=== PATIENT | male | born 1985 ===

== ENCOUNTER 2017-03-26 02:26 | Inpatient (IN) | payer MEDICARE, MEDICAID ==
[2017-03-26 02:26] VITALS: BMI 20.9
--- NOTE | 2017-03-26 02:49 | ED PDOC ---
Arrival/HPI - General Chief Complaint: Psychiatric Evaluation Time Seen by Provider: 03/26/17 02:46 Historian: Patient - History of Present Illness Narrative History of Present Illness (Text): 03/26/17 02:49 Stewart Molina is a 31 year old male, whose past medical history includes depression and schizophrenia, who presents to the ED complaining of suicidal ideation. Patient states he has been feeling depressed and expressing suicidal ideation. Patient reports he has been non-compliant with psychiatric medications. Patient denies any homicidal ideation, fever, chills, chest pain, shortness of breath, abdominal pain, nausea, vomiting, diarrhea, urinary symptoms, back pain, neck pain, headache, dizziness, or any other complaints. Symptom Onset: Gradual Symptom Course: Unchanged Activities at Onset: Rest, Light Context: Home Past Medical History - Provider Review Nursing Documentation Reviewed: Yes - Infectious Disease Hx of Infectious Diseases: None - Tetanus Immunization Tetanus Immunization: Unknown - Past Medical History Past Medical History: No Previous - Cardiac Hx Cardiac Disorders: No - Pulmonary Hx Respiratory Disorders: No - Neurological Hx Neurological Disorder: No - HEENT Hx HEENT Disorder: No - Renal Hx Renal Disorder: No - Endocrine/Metabolic Hx Endocrine Disorders: No - Hematological/Oncological Hx Blood Disorders: No - Integumentary Hx Dermatological Disorder: No - Musculoskeletal/Rheumatological Hx Falls: No - Gastrointestinal Hx Gastrointestinal Disorders: No - Genitourinary/Gynecological Hx Genitourinary Disorders: No Hx Reproductive Disorders: No - Psychiatric Hx Anxiety: Yes Hx Schizophrenia: Yes Hx Substance Use: No - Past Surgical History Past Surgical History: No Previous - Anesthesia Hx Anesthesia: No - Suicidal Assessment Feels Threatened In Home Enviroment: Yes Family/Social History - Physician Review Nursing Documentation Reviewed: Yes Family/Social History: Unknown Family HX Smoking Status: Current Some Days Smoker Hx Alcohol Use: No Hx Substance Use: No Substance used: marijuana Hx Substance Use Treatment: No Allergies/Home Meds Allergies/Adverse Reactions: Allergies No Known Allergies Allergy (Verified 02/04/15 10:51) Review of Systems - Physician Review All systems were reviewed & negative as marked: Yes - Review of Systems Constitutional: Normal. absent: Fevers Eyes: Normal ENT: Normal Respiratory: Normal. absent: SOB, Cough Cardiovascular: Normal. absent: Chest Pain Gastrointestinal: Normal. absent: Abdominal Pain, Diarrhea, Nausea, Vomiting Genitourinary Male: Normal. absent: Dysuria, Frequency, Hematuria, Urinary Output Changes Musculoskeletal: Normal. absent: Back Pain, Neck Pain Skin: Normal. absent: Rash Neurological: Normal. absent: Headache, Dizziness Endocrine: Normal Hemo/Lymphatic: Normal Psychiatric: Depression, Suicidal Ideation Physical Exam Vital Signs Reviewed: Yes Vital Signs Temp Pulse Resp BP Pulse Ox 03/26/17 02:32 98.4 F 86 18 117/82 99 Temperature: Afebrile Blood Pressure: Normal Pulse: Regular Respiratory Rate: Normal Appearance: Positive for: Well-Appearing, Non-Toxic, Comfortable Pain Distress: None Mental Status: Positive for: Alert and Oriented X 3 - Systems Exam Head: Present: Atraumatic, Normocephalic Pupils: Present: PERRL Extroacular Muscles: Present: EOMI Conjunctiva: Present: Normal Mouth: Present: Moist Mucous Membranes Neck: Present: Normal Range of Motion Respiratory/Chest: Present: Clear to Auscultation, Good Air Exchange. No: Respiratory Distress, Accessory Muscle Use Cardiovascular: Present: Regular Rate and Rhythm, Normal S1, S2. No: Murmurs Abdomen: Present: Normal Bowel Sounds. No: Tenderness, Distention, Peritoneal Signs Back: Present: Normal Inspection Upper Extremity: Present: Normal Inspection. No: Cyanosis, Edema Lower Extremity: Present: Normal Inspection. No: Edema Neurological: Present: GCS=15, CN II-XII Intact, Speech Normal Skin: Present: Warm, Dry, Normal Color. No: Rashes Psychiatric: Present: Alert, Oriented x 3. No: Normal Affect (Flat affect) Medical Decision Making ED Course and Treatment: 03/26/17 02:49 Impression: 31 year old male c/o depression and suicidal ideation. Differential Diagnosis included but are not limited to: schizophrenia vs. depression Plan: -- EKG -- CXR -- Labs, alcohol level -- Urine drug screen -- Reassess and disposition Progress Notes: Reviewed EKG, NSR at 75 bpm. Incomplete RBBB. Non-specific ST/T wave changes. 03/26/17 03:58 Pt seen and evaluated by SASHA Beltran, who discussed case with Dr. Torres , psychiatrist school lunch monitor. Pt will be admitted to Behavioral Health for schizophrenia and suicidal ideation under Dr. Shelby's service. - Lab Interpretations Lab Results: 03/26/17 03:08 03/26/17 03:08 Lab Results 03/26/17 03:08: Alcohol, Quantitative < 10 03/26/17 03:08: WBC 7.7 D, RBC 4.57, Hgb 13.8 L, Hct 41.2 L, MCV 90.2, MCH 30.2 , MCHC 33.5, RDW 13.3, Plt Count 222, MPV 9.9 03/26/17 03:08: Sodium 139, Potassium 3.6, Chloride 105, Carbon Dioxide 23, Anion Gap 15, BUN 12, Creatinine 0.7, Est GFR ( Amer) > 60, Est GFR (Non- Af Amer) > 60, Random Glucose 96, Calcium 9.0, Total Bilirubin 0.5, AST 25, ALT 32, Alkaline Phosphatase 115, Total Protein 7.1, Albumin 4.4, Globulin 2.7, Albumin/Globulin Ratio 1.6 I have reviewed the lab results: Yes - RAD Interpretation Radiology Orders: 03/26/17 02:54 CHEST PORTABLE [RAD] Stat Insole Channeler: ED Physician - EKG Interpretation Interpreted by ED Physician: Yes Type: 12 lead EKG - Scribe Statement The provider has reviewed the documentation as recorded by the Diana Quijano Provider Scribe Attestation: All medical record entries made by the Diana were at my direction and personally dictated by me. I have reviewed the chart and agree that the record accurately reflects my personal performance of the history, physical exam, medical decision making, and the department course for this patient. I have also personally directed, reviewed, and agree with the discharge instructions and disposition. Disposition/Present on Arrival - Present on Arrival Any Indicators Present on Arrival: No History of DVT/PE: No History of Uncontrolled Diabetes: No Urinary Catheter: No History of Decub. Ulcer: No History Surgical Site Infection Following: None - Disposition Have Diagnosis and Disposition been Completed?: Yes Diagnosis: Schizophrenia, Suicidal ideation Disposition: HOSPITALIZED Disposition Time: 04:00 Patient Plan: Admission Patient Problems: Current Active Problems Problem Status Onset Schizophrenia Acute Suicidal ideation Acute Condition: STABLE
[2017-03-26 03:30] LABS: HEMATOCRIT 41.2 % (42.0-52.0); MEAN CELL VOLUME 90.2 fl (80.0-105.0); MEAN CORPUSCULAR HEMOGLOBIN 30.2 pg (25.0-35.0); MEAN CORPUSCULAR HGB CONC 33.5 g/dl (31.0-37.0); MEAN PLATELET VOLUME 9.9 fl (7.0-11.0); RED CELL DISTRIBUTION WIDTH 13.3 % (11.5-14.5); WHITE BLOOD COUNT 7.7 10^3/ul (4.5-11.0)
[2017-03-26 03:42] LABS: ALB/GLOB RATIO 1.6 (1.1-1.8); ALKALINE PHOSPHATASE 115 U/L (38-133); ALT/SGPT 32 U/L (7-56); AST/SGOT 25 U/L (15-59); BILIRUBIN,TOTAL 0.5 mg/dL (0.2-1.3); BLOOD UREA NITROGEN 12 mg/dL (7-21); CARBON DIOXIDE 23 mmol/L (21-33); CHLORIDE 105 mmol/L (95-110); GFR AFRICAN-AMERICAN > 60; GLUCOSE,RANDOM 96 mg/dL (70-110); POTASSIUM 3.6 mmol/L (3.6-5.0); SODIUM 139 mmol/L (132-148); TOTAL PROTEIN 7.1 g/dL (5.8-8.3)
[2017-03-26] MEDS ORDERED: Magnesium Hydroxide Susp 30 ml UD PO PRN (06:20)
[2017-03-26] MEDS ORDERED: Alum-Mag Hydrox-Simethicone Susp (30 mL) PO PRN (06:20)
--- NOTE | 2017-03-26 06:40 | PCM.BM ---
<Jimmie Carter - Last Filed: 03/26/17 06:36> Treatment Plan Problems - Problems identified on initial assessmt suicidal ideation Date Initiated: 03/26/17 Time Initiated: 05:00 Assessment reference: NA Status: Active Priority: 1 depression Date Initiated: 03/26/17 Time Initiated: 05:00 Assessment reference: NA Status: Active Priority: 3 medication non-compliance Date Initiated: 03/26/17 Time Initiated: 05:00 Assessment reference: NA Priority: 2 Treatment assets and liabiliti Patient Assests: self-reliant, ADL independent Patient Liabilities: live alone, substance abuse - Milieu Protocol Maintain good personal hygiene: daily Encourage regular showers, daily Remind patient to perform daily oral care Conduct patient checks and document Observation sheet: Q15 minutes Maintain personal safety: every shift Educate patient to report safety concerns to staff, every shift Monitor environment for contraband/sharps Medication safety: Monitor for expected outcome, potential side effects: every shift, Assess barriers to learning: every shift, Assess readiness for medication education: every shift Discharge/Continuing Care - Education Needs Education Needs: Patient Medication, Patient Coping Skills, Patient Health Practices/Safety - Discharge Discharge Criteria: Free of Suicidal thoughts, Free of paranoid thoughts <Blanquita Pérez - Last Filed: 03/26/17 12:56> Treatment assets and liabiliti Patient Assests: negotiates basic needs Patient Liabilities: poor support system, auditory impairment - Milieu Protocol Maintain good personal hygiene: daily Encourage regular showers, daily Remind patient to perform daily oral care, daily Assist patient to perform ADL's Maintain personal safety: every shift Educate patient to report safety concerns to staff, every shift Monitor environment for contraband/sharps Medication safety: Monitor for expected outcome, potential side effects: every shift, Assess barriers to learning: every shift, Assess readiness for medication education: every shift <Ivelisse Hector - Last Filed: 03/26/17 14:34> Family Contact Family involvement: Famliy/SO not involved - Goals for Treatment Patient goals for treatment: "To get medical marijuana."
--- NOTE | 2017-03-26 07:43 | RAD ---
HISTORY: medical clearance COMPARISON: Comparison is made to 02/04/2015 FINDINGS: LUNGS: No active pulmonary disease. PLEURA: No significant pleural effusion identified, no pneumothorax apparent. CARDIOVASCULAR: Normal. OSSEOUS STRUCTURES: No significant abnormalities. VISUALIZED UPPER ABDOMEN: Normal. OTHER FINDINGS: None. IMPRESSION: No active disease.
--- NOTE | 2017-03-26 09:35 | CARD ---
APPROVED REPORT EKG Measurement Heart [id number] <Conclusion> Normal sinus rhythm Incomplete right bundle branch block Borderline ECG
--- NOTE | 2017-03-26 14:16 | CP.PCM.HP ---
<VannessaElise - Last Filed: 03/26/17 14:17> History of Present Illness - History of Present Illness History of Present Illness: Internal Medicine Consult for Dr. Alek Hammer CC: Suicidal Ideation HPI: GP is a 31 year old male with a known history of paranoid schizophrenia who was admitted to the psychiatric unit after he attempted to commit suicide yesterday. Patient states that he wanted to cut himself in the neck with a knife, but then decided against it and went to the hospital instead. He states that he has been feeling depressed because his life is "not successful". Patient reports multiple plans for suicide in the past including at 7 years, 13 years, and 17 years old. He reports that he always hears voices, feels that someone is always watching him, and he "senses he can control the environment". He states that he is willing to try medication to help his condition. Denies other medical history and has no other complains at this time. He denies pain at this time. PMHX: Paranoid schizophrenia Psychiatric hx: Diagnosed with schizophrenia at 17 years old. Patient had plans to hang himself at 7 years old and 13 years old. Attempted chemical injection at 17 years old, but unsuccessful. Family history: Mental illnesses on both maternal and paternal sides Meds: Seroquel PRN All: Olanzapine Social hx: - smoking: occasional cigarettes, 1pack/week - EtOH: occasional, absinthe - recreational drugs: marijuana - lives alone in [facility] Present on Admission - Present on Admission Any Indicators Present on Admission: No History of DVT/PE: No History of Uncontrolled Diabetes: No Urinary Catheter: No Decubitus Ulcer Present: No Past Patient History - Infectious Disease Hx of Infectious Diseases: None - Tetanus Immunizations Tetanus Immunization: Unknown - Past Social History Smoking Status: Current Some Days Smoker - CARDIAC Hx Cardiac Disorders: No - PULMONARY Hx Respiratory Disorders: No - NEUROLOGICAL Hx Neurological Disorder: No - HEENT Hx HEENT Problems: No - RENAL Hx Chronic Kidney Disease: No - ENDOCRINE/METABOLIC Hx Endocrine Disorders: No - HEMATOLOGICAL/ONCOLOGICAL Hx Blood Disorders: No - INTEGUMENTARY Hx Dermatological Problems: No - MUSCULOSKELETAL/RHEUMATOLOGICAL Hx Falls: No - GASTROINTESTINAL Hx Gastrointestinal Disorders: No - GENITOURINARY/GYNECOLOGICAL Hx Genitourinary Disorders: No Hx Reproductive Disorders: No - PSYCHIATRIC Hx Depression: Yes Hx Substance Use: Yes - SURGICAL HISTORY Hx Surgeries: No - ANESTHESIA Hx Anesthesia: No Meds Allergies/Adverse Reactions: Allergies Allergy/AdvReac Type Severity Reaction Status Date / Time olanzapine [From Zyprexa] AdvReac RASH Verified 03/26/17 07:48 Physical Exam - Constitutional Appears: Non-toxic Additional comments: PE: General: Patient is AAOx3, answering questions appropriately. Head: Normocephalic, atraumatic Skin: Warm, dry HEENT: Mucous membranes moist. CV: Regular rate & rhythm, normal S1/S2, no murmurs, gallops, rubs Respiratory: Lungs CTA b/l, no wheezes, rales, or rhonchi GI: Abdomen soft, nondistended, nontender. No guarding or rebound. Extremities: Good distal pulses. Neuro: Ambulating with stable gait. Normal strength in all extremities. Psych: Patient has normal affect, sad mood. - Head Exam Head Exam: NORMAL INSPECTION - Eye Exam Eye Exam: EOMI, Normal appearance - ENT Exam ENT Exam: Mucous Membranes Moist - Neck Exam Neck exam: Positive for: Full Rom - Respiratory Exam Respiratory Exam: NORMAL BREATHING PATTERN. absent: Accessory Muscle Use, Respiratory Distress - Cardiovascular Exam Cardiovascular Exam: REGULAR RHYTHM. absent: Bradycardia, Tachycardia - GI/Abdominal Exam GI & Abdominal Exam: Normal Bowel Sounds, Soft. absent: Diminished Bowel Sounds , Tenderness - Extremities Exam Extremities exam: Positive for: full ROM, normal inspection. Negative for: calf tenderness, pedal edema - Neurological Exam Neurological exam: Alert, Normal Gait, Oriented x3 - Skin Skin Exam: Dry, Normal Color, Warm Results - Vital Signs Recent Vital Signs: Last Vital Signs Temp 98.3 F 03/26/17 05:00 Pulse 76 03/26/17 05:00 Resp 16 03/26/17 05:54 BP 126/89 03/26/17 05:00 Pulse Ox 96 03/26/17 05:00 - Labs Result Diagrams: 03/26/17 03:08 03/26/17 03:08 Labs: Laboratory Results - last 24 hr 03/26/17 05:50 Urine Opiates Screen Negative Urine Methadone Screen Negative Ur Barbiturates Screen Negative Ur Phencyclidine Scrn Negative Ur Amphetamines Screen Negative U Benzodiazepines Scrn Negative U Oth Cocaine Metabols Negative U Cannabinoids Screen Positive H Assessment & Plan - Assessment and Plan (Free Text) Assessment: 31 M with Depression. PMH paranoid schizophrenia Plan: 1. Suicidal Ideation, schizophrenia - recommendations per psychiatry 2. Labs normal, vitals stable Medicine team is signing off. no medical intervention necessary at this time - Date & Time Date: 03/26/17 Time: 14:16 <Ward Gaston - Last Filed: 03/26/17 17:35> Results - Vital Signs Recent Vital Signs: Last Vital Signs Temp 98.3 F 03/26/17 05:00 Pulse 76 03/26/17 05:00 Resp 16 03/26/17 05:54 BP 126/89 03/26/17 05:00 Pulse Ox 96 03/26/17 05:00 - Labs Result Diagrams: 03/26/17 03:08 03/26/17 03:08 Labs: Laboratory Results - last 24 hr 03/26/17 05:50 Urine Opiates Screen Negative Urine Methadone Screen Negative Ur Barbiturates Screen Negative Ur Phencyclidine Scrn Negative Ur Amphetamines Screen Negative U Benzodiazepines Scrn Negative U Oth Cocaine Metabols Negative U Cannabinoids Screen Positive H Attending/Attestation - Attestation I have personally seen and examined this patient.: Yes I have fully participated in the care of the patient.: Yes I have reviewed all pertinent clinical information: Yes Notes (Text): 03/26/17 17:31 MEDICAL CONSULTATION 31 year old male with past medical history of paranoid schizophrenia who presented with depressed mood and suicidal ideation. Continue with management as per psychiatrist. Labs were reviewed. Thank you Dr. Valdez for allowing us to participate in the care of this patient. No active medical issues. Will sign off; please re-consult as needed. Ward Gaston MD Hospitalist.
--- NOTE | 2017-03-27 02:18 | HP ---
IDENTIFYING INFORMATION: The patient is a 31-year-old single male admitted with disorganized thinking and suicidal thoughts. HISTORY OF PRESENT ILLNESS: The patient reportedly had grabbed the knife with thoughts of cutting his jugular vein. He asked someone to call the ambulance while he remained outside smoking his cigarette. He also had thoughts at that time of jumping off a bridge, because he wanted something that would "hurt." He, however, was able to talk himself down. The patient reported having a lot of "piled up stuff" including the fact that he was unhappy living in a local [facility] for the past 6 years because he has no other place to go. The patient reports a history of auditory hallucinations not too long ago. The patient reports having difficulty in following sentences that he is engaged in when talking to others. He also reported feeling paranoid. He reported being abandoned by his parents and family. He reported 5 prior psychiatric hospitalizations with he having been diagnosed with schizophrenia at age 14. He was last hospitalized "yesteryear" at [facility] with his longest hospitalization having been for 1 month. He has a long history of noncompliance with medication and other treatments, complaining that the medication makes him feel like a "zombie." He was prescribed up to 800 mg Seroquel at [facility], which may have been his most recent hospitalization. I had discussed the possibility of Clozaril placement with the patient, but he seemed not committed to the rigours of this pharmacologic regimen. The patient reported that he dropped out of psychiatric care this past September, because he felt it was ineffective. Thus, he became noncompliant. The patient reported using marijuana daily "as much as I can." The patient reports that he is on SSD for years because of the psychiatric disorder. He reported that he had previously worked for 5 years at a [employer] station in [place], where he was born and raised. He moved to [facility] at age 22. Both of his parents still reside in [place]. His parents were . He reported that he was taken away from them at age 3 when his mother was arrested because she hung around with the "wrong people." He has 2 half sisters and 2 half brothers. He reported that his mother has had an anxiety disorder that has been treated by mental health workers. He is not in contact with her. The patient indicated that he had completed 12th grade in school, but was in special education for reasons uncertain. The patient reported that previously he was here because he was malnourished. He smokes 1 cigarette per week, but did not feel he needed a patch. He complained of ongoing tension. He appeared to be alert, oriented and gave a history as noted. He is being maintained presently without psychotropic medications, so that we can observe the patient. There was some thought that there may be a malingering element to the patient's behavioral repertoire. A CBC and differential showed low hemoglobin 13.8, hematocrit 41.2. Drug screen was positive for cannabinoids. Biochemical profile was within normal limits. DIAGNOSES: Rule out schizophrenia, rule out bipolar disorder, cannabinoid use disorder, rule out personality disorder. Diaz Valdez MD/ PhD
--- NOTE | 2017-03-27 08:35 | PCM.PYCHPN ---
Psychiatric Progress Note - Psychiatric Progress Note Patient seen today, length of contact: 25 min Patient Chief Complaint: "so-so" Problems Identified/Issues Discussed: I reviewed assessment and recent notes. I met with patient in the dayroom. He is unkempt and appears tired, preoccupied and odd. Reports that his mood is "so- so" and that he hears the cameras on the unit mumbling things to him. He feels unit cameras are targeting him. He still doesn't want to take medications except for medical marijuana. Patient doesn't appear to be responding to internal stimuli. Patient is still depressed however denies SI and HI. Denies any new discomfort or pain. There were no behavioral issues on the unit overnight. Diagnostic Results: Rule out Schizophrenia Rule out Bipolar Disorder Rule out Personality Disorder Cannabis Use Disorder Rule out malingering Medication Change: Yes (Started seroquel and ativan) Medical Record Reviewed: Yes Mental Status Examination - Cognitive Function Attention: Poor Concentration: Poor Association: Loose Fund of Knowledge: Poor - Mood Mood: Depressed ("so-so") - Affect Affect: Other (odd) - Speech Speech: Appropriate - Formal Thought Process Formal Thought Process: Hallucinations ( he hears the cameras on the unit mumbling things to him. He feels unit cameras are targeting him.), Delusions, Paranoia - Homicidal Ideation Homicidal Ideation: No Goal/Treatment Plan - Goal/Treatment Plan Progress Toward Problem(s) and Goals/Treatment Plan: * c/w current tx and plan * Started Seroquel 50 mg [facility] for hallucinations and delusions * Started ativan 0.5 mg [facility] for anxiety * Encourage patient to comply with medication recommendations * No new weekend labs thus far * Vitals reviewed and noted below: Selected Entries 03/26/17 03/26/17 02:32 05:00 Temperature 98.4 F 98.3 F Pulse Rate 86 76 Respiratory 18 16 Rate Blood Pressure 117/82 126/89
[2017-03-27 08:56] LABS: CHOLESTEROL 156 mg/dL (130-200)
--- NOTE | 2017-03-28 08:47 | PCM.PYCHPN ---
Psychiatric Progress Note - Psychiatric Progress Note Patient seen today, length of contact: 25 min Patient Chief Complaint: "okay" Problems Identified/Issues Discussed: I reviewed recent notes. I met with patient in the hernández. He is unkempt and appears tired, preoccupied and odd. Reports that his mood is "okay". He is still paranoid about the cameras on the unit. [place] them mumbling yesterday. When asked about hallucinations today, he responds "yeah and no". Patient has been taking prescribed medications and denies side effects. Denies any new discomfort or pain. He doesn't resist or argue when this provider explains the medications purpose to improve paranoia, hallucinations and anxiety. Informs me that marijuana helps with his anxiety and doesn't feel it contributes to his paranoia. Staff notes indicate that patient appears brighter, observed socializing at times. Still seems paranoid about unit cameras. There were no major behavioral issues over the weekend Diagnostic Results: Rule out Schizophrenia Rule out Bipolar Disorder Rule out Personality Disorder Cannabis Use Disorder Rule out malingering Medication Change: Yes (Started seroquel and ativan on 03/27/17) Medical Record Reviewed: Yes Mental Status Examination - Cognitive Function Orientation: Person, Place Attention: Poor Concentration: Poor Association: Loose Fund of Knowledge: Poor - Mood Mood: Depressed ("okay") - Affect Affect: Other (odd) - Speech Speech: Appropriate - Formal Thought Process Formal Thought Process: Hallucinations ( he hears the cameras on the unit mumbling things to him. He feels unit cameras are targeting him.), Delusions, Paranoia - Suicidal Ideation Suicidal Ideation: No - Homicidal Ideation Homicidal Ideation: No Goal/Treatment Plan - Goal/Treatment Plan Progress Toward Problem(s) and Goals/Treatment Plan: * c/w current tx and plan * Started Seroquel 50 mg [facility] on 03/27/17 for hallucinations and delusions * Started ativan 0.5 mg [facility] on 03/27/17 for anxiety * Vitals reviewed and noted below: Selected Entries 03/26/17 03/26/17 03/27/17 05:00 05:54 16:00 Temperature 98.3 F Pulse Rate 76 81 Respiratory 16 16 Rate Blood Pressure 126/89 105/70 * New weekend labs noted below: Laboratory Results - last 24 hr 03/27/17 03/27/17 07:30 07:30 Triglycerides 113 Cholesterol 156 LDL Cholesterol Direct 85 HDL Cholesterol 48 RPR Nonreactive
--- NOTE | 2017-03-29 17:59 | PCM.PYCHPN ---
Psychiatric Progress Note - Psychiatric Progress Note Patient seen today, length of contact: 25 min Patient Chief Complaint: Has no particular complaint Problems Identified/Issues Discussed: Patient has exhibited bizarre, paranoid behavior. Has history of schizophrenia Medical Problems: Not of immediate concern Diagnostic Results: Non since DSM 5 Symptoms Update: [place] superficial, somewhat disheveled, does not appear to be overtly psychotic nor overtly paranoid .hard however to engage in meaningful insightful conversation Medication Change: Yes (Started seroquel and ativan on 03/27/17) Medical Record Reviewed: Yes Mental Status Examination - Cognitive Function Orientation: Person, Place Memory: Intact Attention: Poor Concentration: Poor Association: Loose Fund of Knowledge: Poor - Mood Mood: Depressed ("okay") - Affect Affect: Other (odd) - Speech Speech: Appropriate - Formal Thought Process Formal Thought Process: Hallucinations ( he hears the cameras on the unit mumbling things to him. He feels unit cameras are targeting him.), Delusions, Paranoia - Suicidal Ideation Suicidal Ideation: No - Homicidal Ideation Homicidal Ideation: No Goal/Treatment Plan - Goal/Treatment Plan Progress Toward Problem(s) and Goals/Treatment Plan: We'll continue to work on stabilization of both affect and thinking abberrency
--- NOTE | 2017-03-30 23:42 | PN ---
SUBJECTIVE: The patient is a 31-year-old male with a history of schizophrenia who has been exhibiting bizarre and paranoid behavior. His mood and affect remain labile. At times, he needs firm limit setting. Verbalized that a camera was focusing on him all the time. The patient has spoken about the virtues of the calming effects of cannabis. The patient's insight and judgement are considered to be impaired. Psychotropically, the patient is being managed on Seroquel 15 mg a.m. and at bedtime. PHYSICAL EXAMINATION VITAL SIGNS: Blood pressure 115/77, pulse 101, temperature 97.7, and respiratory rate 20. LABORATORY DATA: There are no new blood tests to review. Diaz Valdez MD/ PhD
--- NOTE | 2017-03-31 14:22 | PCM.PYCHPN ---
Psychiatric Progress Note - Psychiatric Progress Note Patient seen today, length of contact: 25 min Patient Chief Complaint: Has no particular complaint Problems Identified/Issues Discussed: Patient has exhibited bizarre, paranoid behavior. Has history of schizophrenia Medical Problems: Not of immediate concern Diagnostic Results: Non since DSM 5 Symptoms Update: Patient a somewhat elusive or manipulative historian. 1. He tells me okay that he gives me a low number and rating himself "5 out of 10". The social work he started developing hallucinations when confronted about his need to attend an IOP and about his poor history of poor treatment compliance This underscores the difficulty in assessing the actual severity of the patient' s true psychiatric disorder as opposed to a certainma lingering component to his presentation area Medication Change: Yes (Started seroquel and ativan on 03/27/17) Medical Record Reviewed: Yes Mental Status Examination - Cognitive Function Orientation: Person, Place Memory: Intact Attention: Poor Concentration: Poor Association: Loose Fund of Knowledge: Poor - Mood Mood: Neutral - Affect Affect: Other (odd) - Speech Speech: Appropriate - Formal Thought Process Formal Thought Process: Hallucinations ( he hears the cameras on the unit mumbling things to him. He feels unit cameras are targeting him.), Delusions, Paranoia - Suicidal Ideation Suicidal Ideation: No - Homicidal Ideation Homicidal Ideation: No Goal/Treatment Plan - Goal/Treatment Plan Progress Toward Problem(s) and Goals/Treatment Plan: We'll continue to work on stabilization of both affect and thinking abberrency Patient will be referred to an IOP although he is giving every indication that he will be noncompliant with this follow-up recommendation.
[2017-04-01 07:36] VITALS: BP 130/88; PULSE 85; RESP 18; TEMP 97.3; O2SAT 97
--- NOTE | 2017-04-17 10:20 | DS ---
IDENTIFYING INFORMATION: The patient is a 31-year-old male, admitted in the state of disorganized thinking with suicidal thoughts. HISTORY OF PRESENT ILLNESS: The patient reportedly had grabbed a knife with thoughts of cutting his jugular vein. He then asked somebody to call the ambulance while he remained outside smoking his cigarette. He also expressed thoughts of wanting to jump off a bridge because he wanted something that would "hurt". He reported; however, that he was able to "calm himself down." The patient reported having a lot of "piled up stuff," including the fact that he was unhappy living in a local [facility] [place] for the past six years as he had no other place to live. He reported a history of auditory hallucinations of recent vintage. The patient reported that he had difficulty in following senses while engaging in conversation with other and also reported feeling paranoid. He also reported being abandoned by his parents and family. He reported five prior psychiatric hospitalizations, with he having been diagnosed with schizophrenia at age 14. He was last hospitalized "yesteryear" at [facility] [place], with his longest hospitalization having been of one month duration. He has a long history of treatment noncompliance and medicine noncompliance with he complaining that medication makes him feel like a "zombie". He had been prescribed up to 800 mg Seroquel at [facility] [place],which may have been his most recent hospitalization. The possibility of Clozaril was discussed with the patient, but he could not get admit himself to the rigorous of this pharmacologic regimen. The patient was noted to be unkempt, tired during his hospital stay, odd and eccentric and paranoid, feeling there were cameras on the unit. He also reported hearing mumbling voices. He was, however, considered off to be a vague historian. He was referred to the intensive day treatment program at [facility] [place] (04/08/2017). The patient's mood and affect had improved while on the psychiatric unit. He denied auditory or visual hallucinations or psychotic or homicidal ideation though he did admit to some paranoid feelings. DISCHARGE DIAGNOSES: Psychosis, not otherwise specified; cannabinoid use disorder; personality disorder, not otherwise specified, (the patient had tested positive for cannabinoid). CBC and differential on 03/26/2017 showed low hemoglobin 13.8, hematocrit 41.2. RPR nonreactive. Drug screen is noted positive for cannabinoids, biochemical profile within normal limits. DISCHARGE MEDICATIONS: Ativan 0.5 mg daily, Geodon 40 mg daily, Paxil 20 mg daily. Diaz Valdez MD/ PhD
== END 2017-04-01 15:44 | disposition home or self-care (01) | DRG 885 ==
LOC: ED 02:26 → ERH 04:16 → PSYC 05:24
PROVIDERS: ADMIT Psychiatry & Neurology Psychiatry; ATTEND Psychiatry & Neurology Addiction Medicine
PROC: GZ3ZZZZ Medication Management (ICD-10-PCS; principal; 2017-03-27)
DX: F20.0 Paranoid schizophrenia (principal); Z91.14 Patient's other noncompliance with medication regimen; R45.851 Suicidal ideations; F12.90 Cannabis use, unspecified, uncomplicated

== ENCOUNTER 2017-04-11 13:07 | Inpatient (IN) | payer MEDICARE, MEDICAID ==
[2017-04-11 13:08] VITALS: BMI 20.9
[2017-04-11 13:55] LABS: BASO # 0.02 K/mm3 (0.0-2.0); BASO % 0.2 % (0.0-3.0); EOS % 0.2 % (1.5-5.0); GRAN # 9.91 (1.4-6.5); HEMATOCRIT 45.3 % (42.0-52.0); LYMPH # 1.5 (1.2-3.4); MEAN CELL VOLUME 88.3 fl (80.0-105.0); MEAN CORPUSCULAR HEMOGLOBIN 30.2 pg (25.0-35.0); MEAN CORPUSCULAR HGB CONC 34.2 g/dl (31.0-37.0); MONO # 0.9 (0.1-0.6); MONO % 7.6 % (1.0-6.0); RED CELL DISTRIBUTION WIDTH 13.4 % (11.5-14.5); WHITE BLOOD COUNT 12.4 10^3/ul (4.5-11.0)
[2017-04-11 14:03] LABS: ALB/GLOB RATIO 1.6 (1.1-1.8); ALKALINE PHOSPHATASE 96 U/L (38-126); ALT/SGPT 35 U/L (7-56); AST/SGOT 27 U/L (17-59); BILIRUBIN,TOTAL 0.8 mg/dL (0.2-1.3); BLOOD UREA NITROGEN 5 mg/dL (7-21); CALCIUM 9.2 mg/dL (8.4-10.5); CARBON DIOXIDE 29 mmol/L (21-33); CHLORIDE 101 mmol/L (98-107); GFR AFRICAN-AMERICAN > 60; GLUCOSE,RANDOM 88 mg/dL (70-110); POTASSIUM 3.2 mmol/L (3.6-5.0); SODIUM 144 mmol/L (132-148); TOTAL PROTEIN 8.2 g/dL (5.8-8.3)
--- NOTE | 2017-04-11 14:04 | RAD ---
HISTORY: pes eval COMPARISON: Chest x-ray performed 03/26/17 TECHNIQUE: Chest, one view. FINDINGS: LUNGS: No focal consolidation. Please note that chest x-ray has limited sensitivity for the detection of pulmonary masses. PLEURA: No significant pleural effusion identified. No definite pneumothorax . CARDIOVASCULAR: The cardiomediastinal silhouette appears within normal limits of size. OSSEOUS STRUCTURES: No acute osseous abnormality identified. VISUALIZED UPPER ABDOMEN: Unremarkable. OTHER FINDINGS: None. IMPRESSION: No focal consolidation, significant pleural effusion, or definite pneumothorax identified.
--- NOTE | 2017-04-11 15:31 | ED PDOC ---
Arrival/HPI - General Historian: Patient - History of Present Illness Symptom Onset: Gradual Symptom Course: Worsening - General Chief Complaint: Psychiatric Evaluation Time Seen by Provider: 04/11/17 13:30 - History of Present Illness Narrative History of Present Illness (Text): 04/11/17 15:28 31-year-old male with a history of anxiety depression presents today with suicidal ideation. Patient states he's been feeling very paranoid and hearing voices. He had plans to jump off of the bridge to kill himself. He denies chest pain or shortness of breath. Denies abdominal pain. No nausea or vomiting. Patient states he was recently discharged from the hospital one week ago. (Olga Dunne) Past Medical History - Provider Review Nursing Documentation Reviewed: Yes - Travel History Have you recently traveled outside [place] w/in the past 3 mons?: No - Infectious Disease Hx of Infectious Diseases: None - Tetanus Immunization Tetanus Immunization: Unknown - Past Medical History Past Medical History: No Previous - Cardiac Hx Cardiac Disorders: No - Pulmonary Hx Respiratory Disorders: No - Neurological Hx Neurological Disorder: No - HEENT Hx HEENT Disorder: No - Renal Hx Renal Disorder: No - Endocrine/Metabolic Hx Endocrine Disorders: No - Hematological/Oncological Hx Blood Disorders: No - Integumentary Hx Dermatological Disorder: No - Musculoskeletal/Rheumatological Hx Falls: No - Gastrointestinal Hx Gastrointestinal Disorders: No - Genitourinary/Gynecological Hx Genitourinary Disorders: No Hx Reproductive Disorders: No - Psychiatric Hx Depression: Yes Hx Schizophrenia: Yes Hx Substance Use: Yes - Past Surgical History Past Surgical History: No Previous - Anesthesia Hx Anesthesia: No - Suicidal Assessment Suicide Risk Precautions: Suicide Precautions Family/Social History - Physician Review Nursing Documentation Reviewed: Yes Family/Social History: Unknown Family HX Smoking Status: Current Some Days Smoker Hx Alcohol Use: No Hx Substance Use: Yes Substance used: marijuana Hx Substance Use Treatment: No Allergies/Home Meds Allergies/Adverse Reactions: Allergies olanzapine [From Zyprexa] Adverse Reaction (Verified 04/11/17 13:20) RASH Review of Systems - Review of Systems Constitutional: absent: Fatigue, Fevers Respiratory: absent: SOB, Cough Cardiovascular: absent: Chest Pain, Palpitations Gastrointestinal: absent: Abdominal Pain, Diarrhea, Vomiting Genitourinary Male: absent: Dysuria Musculoskeletal: absent: Arthralgias Skin: absent: Rash Neurological: absent: Headache, Dizziness Psychiatric: Anxiety, Depression, Suicidal Ideation Physical Exam Vital Signs Reviewed: Yes Temperature: Afebrile Blood Pressure: Normal Pulse: Tachycardic Respiratory Rate: Normal Appearance: Positive for: Well-Appearing, Non-Toxic, Comfortable Pain Distress: None Mental Status: Positive for: Alert and Oriented X 3, other (anxious, paranoid) - Systems Exam Head: Present: Atraumatic Mouth: Present: Moist Mucous Membranes Respiratory/Chest: Present: Clear to Auscultation Cardiovascular: Present: Tachycardic Abdomen: Present: Normal Bowel Sounds. No: Tenderness, Distention, Rebound, Guarding Back: Present: Normal Inspection Upper Extremity: Present: Normal ROM Lower Extremity: Present: Normal Inspection, Normal ROM Neurological: Present: GCS=15, Speech Normal Skin: Present: Warm, Dry, Normal Color. No: Rashes Psychiatric: Present: Alert, Oriented x 3, Depressed Mood, Suicidal Ideation, Delusional. No: Normal Affect, Homicidal Ideation Vital Signs Temp Pulse Resp BP Pulse Ox 04/11/17 16:16 98.2 F 88 18 130/96 H 98 04/11/17 13:50 982 F H 103 H 17 150/88 100 04/11/17 13:13 98.6 F 116 H 20 129/82 99 Medical Decision Making ED Course and Treatment: I was available for consultation during PA evaluation. The chart was reviewed by me, and I agree with disposition. The documented history was done by the physician compressor station engineer. The documented physical exam was done by the physician compressor station engineer. The documented procedures were done by the physician compressor station engineer. (Francesco Dixon) 04/11/17 15:31 Patient is nontoxic well-appearing in no distress vital signs are stable. CBC WBC:12.4 CMP WNL CPK: wnl Tylenol WNL Salicylate WNL Alcohol level WNL Urine drug screen : + marijuana UA; wnl cxr: wnl ekg normal sinus rhythm with sinus arrhythmia at 92 bpm normal axis and no ST elevations, incomplete right bundle branch block pt is medically cleared for PES evaluation Patient was seen and evaluated by PES screener: Pascale Patient sign voluntarily to behavioral health floor impression; schizophrenia Admit to the behavioral health floor (Olga Dunne) - Lab Interpretations Lab Results: 04/11/17 13:49 04/11/17 13:49 Lab Results 04/11/17 16:27: Urine Opiates Screen Negative, Urine Methadone Screen Negative, Ur Barbiturates Screen Negative, Ur Phencyclidine Scrn Negative, Ur Amphetamines Screen Negative, U Benzodiazepines Scrn Negative, U Oth Cocaine Metabols Negative, U Cannabinoids Screen Positive H 04/11/17 16:27: Urine Color Yellow, Urine Appearance Clear, Urine pH 7.5, Ur Specific [place] 1.015, Urine Protein Negative, Urine Glucose (UA) Negative, Urine Ketones Negative, Urine Blood Negative, Urine Nitrate Negative, Urine Bilirubin Negative, Urine Urobilinogen 0.2, Ur Leukocyte Esterase Negative 04/11/17 15:35: Total Creatine Kinase 94 04/11/17 13:49: Alcohol, Quantitative < 10 04/11/17 13:49: Salicylates < 1 L, Acetaminophen < 10.0 L 04/11/17 13:49: Sodium 144, Potassium 3.2 L, Chloride 101, Carbon Dioxide 29, Anion Gap 17, BUN 5 L, Creatinine 0.8, Est GFR ( Amer) > 60, Est GFR (Non -Af Amer) > 60, Random Glucose 88, Calcium 9.2, Total Bilirubin 0.8, AST 27, ALT 35, Alkaline Phosphatase 96, Total Protein 8.2, Albumin 5.1 H, Globulin 3.1 , Albumin/Globulin Ratio 1.6 04/11/17 13:49: WBC 12.4 H D, RBC 5.13, Hgb 15.5, Hct 45.3, MCV 88.3, MCH 30.2, MCHC 34.2, RDW 13.4, Plt Count 253, MPV 9.0, Gran % 80.0 H, Lymph % (Auto) 12.0 L, [place] % (Auto) 7.6 H, Eos % (Auto) 0.2 L, Baso % (Auto) 0.2, Gran # 9.91 H, Lymph # 1.5, [place] # 0.9 H, Eos # 0.0, Baso # 0.02 - RAD Interpretation Radiology Orders: 04/11/17 13:31 CHEST PORTABLE [RAD] Stat Disposition/Present on Arrival - Present on Arrival Any Indicators Present on Arrival: No History of DVT/PE: No History of Uncontrolled Diabetes: No Urinary Catheter: No History of Decub. Ulcer: No History Surgical Site Infection Following: None - Disposition Have Diagnosis and Disposition been Completed?: Yes Disposition Time: 17:20 Patient Plan: Admission - Disposition Diagnosis: Suicidal ideation, Schizophrenia Disposition: HOSPITALIZED Condition: FAIR Forms: [employer] (Nepalese)
[2017-04-11 16:33] LABS: PH,URINE 7.5 (4.7-8.0); URINE BILIRUBIN NEGATIVE (NEGATIVE); URINE BLOOD NEGATIVE (NEGATIVE); URINE GLUCOSE (UA) NEGATIVE (NEGATIVE); URINE KETONE NEGATIVE (NEGATIVE); URINE LEUKOCYTE ESTERASE NEGATIVE Leu/uL (NEGATIVE); URINE PROTEIN NEGATIVE mg/dL (<30 mg/dL); URINE UROBILINOGEN 0.2 E.U./dL (<1 E.U./dL)
[2017-04-11 16:35] LABS: URINE APPEARANCE CLEAR (CLEAR); URINE COLOR YELLOW (YELLOW)
[2017-04-11 17:54] VITALS: O2SAT 99
[2017-04-11] MEDS ORDERED: Alum-Mag Hydrox-Simethicone Susp (30 mL) PO PRN (18:20)
[2017-04-11] MEDS ORDERED: Magnesium Hydroxide Susp 30 ml UD PO PRN (18:20)
--- NOTE | 2017-04-11 18:39 | PCM.BM ---
<Santiago Buitrago - Last Filed: 04/11/17 18:36> Treatment Plan Problems - Problems identified on initial assessmt Suicidal Ideation Date Initiated: 04/11/17 Time Initiated: 18:37 Assessment reference: NA Status: Active Priority: 1 Hopelessness Date Initiated: 04/11/17 Time Initiated: 18:37 Assessment reference: NA Status: Active Priority: 2 Delusions Date Initiated: 04/11/17 Time Initiated: 18:38 Assessment reference: NA Status: Active Priority: 3 Comment: paranoid Treatment assets and liabiliti Patient Assests: cooperative, self-reliant, ADL independent, physically healthy , negotiates basic needs, cognitively intact Patient Liabilities: financial problems, poor support system, relationship conflicts, substance abuse - Milieu Protocol Maintain good personal hygiene: daily Encourage regular showers, daily Remind patient to perform daily oral care, daily Assist patient to perform ADL's Maintain personal safety: every shift Educate patient to report safety concerns to staff, every shift Monitor environment for contraband/sharps Medication safety: Monitor for expected outcome, potential side effects: every shift, Assess barriers to learning: every shift, Assess readiness for medication education: every shift Family Contact - Goals for Treatment Patient goals for treatment: "to stop these thoughts" Discharge/Continuing Care - Education Needs Education Needs: Patient Medication, Patient Diagnosis/Disease Process, Patient Coping Skills, Patient Placement options, Patient Community resources, Patient Aftercare Safety Plan - Discharge Discharge Criteria: Tolerates medication w/o severe side effects, Free of Suicidal thoughts, Normal sleep pattern, Reduction of target symptoms <Greer Shelby - Last Filed: 04/12/17 16:39> - Diagnosis (1) Cannabis abuse with physiological dependence Status: Acute Interventions: 04/12/17 16:37 Maintaining sobriety Relapse prevention Possible rehabilitation Motivational interviewing, pt is in denial that he is cannabis abuser 12-step programs: AA meetings (2) Schizoaffective disorder Status: Acute Interventions: 04/12/17 16:38 Psychoeducation/psychotherapy Psychopharmacology/adjustment of medications as needed/ monitoring possible side effects Evaluate pt on daily basis Compliance with medications and follow up appointments Long acting medication if pt is noncompliant with pill form Suicide and homicide risk assessment and prevention, coping strategies, safety plan Relapse prevention Reduction of symptoms Improve functional status Possible social skill training as outpatient (3) Substance-induced psychotic disorder with hallucinations Status: Acute Interventions: 04/12/17 16:38 Maintaining sobriety Relapse prevention
[2017-04-12 06:53] VITALS: RESP 20
--- NOTE | 2017-04-12 07:28 | CARD ---
APPROVED REPORT EKG Measurement Heart [id number] MI [id number] [id number] <Conclusion> Normal sinus rhythm with sinus arrhythmia Incomplete right bundle branch block Borderline ECG
[2017-04-12] MEDS ORDERED: Potassium Chloride 20 mEq ER Tab PO STA (08:27)
--- NOTE | 2017-04-12 12:33 | CP.PCM.CON ---
<Gilmer Hernandez - Last Filed: 04/12/17 15:16> History of Present Illness - History of Present Illness History of Present Illness: This is a 31 yr. old male with a past medical history of anxiety and depression that came in with reports of suicidal ideation. The patient reports that over the past days he has been hearing voices that continue to question his worth and has become paranoid also at the time of his admission. He denies any chest pain, shortness of breath, lightheadedness, dizziness, changes in vision, abdominal pain, constipation, diarrhea, nausea, vomiting, SI, HI, or any other complaints. PMHx: Anxiety, Depression Surgical: Denies Allergies: Olanzapine (Rash) Social: [facility] at the [facility] and does report Marijuana use to decrease his anxiety.Reports smoking 2-3 cigarettes a week and has no desire to quit at this time. Denies any other illicit drug use. PMD: Doesn't currently have one. Review of Systems - Constitutional Constitutional: absent: Anorexia, Chills, Night Sweats - EENT Eyes: absent: Blurred Vision, Discharge, Loss of Vision Ears: absent: Ear Discharge, Ear Pain, Dizziness Nose/Mouth/Throat: absent: Nasal Congestion, Nose Pain - Cardiovascular Cardiovascular: absent: Chest Pain, Chest Pain with Activity, Diaphoresis, Lightheadedness, Palpitations - Respiratory Respiratory: absent: Chest Congestion, Pain with Coughing - Gastrointestinal Gastrointestinal: As Per HPI - Genitourinary Genitourinary: As Per HPI - Musculoskeletal Musculoskeletal: As Per HPI - Neurological Neurological: As Per HPI - Psychiatric Psychiatric: Anxiety, Other (Auditory hallucinations). absent: Panic Attacks, Suicidal Ideation, Visual Hallucinations Past Patient History - Infectious Disease Hx of Infectious Diseases: None - Tetanus Immunizations Tetanus Immunization: Unknown - Past Social History Smoking Status: Current Some Days Smoker - CARDIAC Hx Cardiac Disorders: No - PULMONARY Hx Respiratory Disorders: No - NEUROLOGICAL Hx Neurological Disorder: No - HEENT Hx HEENT Problems: No - RENAL Hx Chronic Kidney Disease: No - ENDOCRINE/METABOLIC Hx Endocrine Disorders: No - HEMATOLOGICAL/ONCOLOGICAL Hx Blood Disorders: No - INTEGUMENTARY Hx Dermatological Problems: No - MUSCULOSKELETAL/RHEUMATOLOGICAL Hx Falls: No - GASTROINTESTINAL Hx Gastrointestinal Disorders: No - GENITOURINARY/GYNECOLOGICAL Hx Genitourinary Disorders: No Hx Reproductive Disorders: No - PSYCHIATRIC Hx Depression: Yes Hx Schizophrenia: Yes Hx Substance Use: Yes - SURGICAL HISTORY Hx Surgeries: No - ANESTHESIA Hx Anesthesia: No Meds Allergies/Adverse Reactions: Allergies Allergy/AdvReac Type Severity Reaction Status Date / Time olanzapine [From Zyprexa] AdvReac RASH Verified 04/11/17 18:53 - Medications Medications: Current Medications Acetaminophen (Tylenol 325mg Tab) 650 mg PO Q4 PRN PRN Reason: Pain, Mild (1-3) Al Hydrox/Mg Hydrox/Simethicone (Maalox Plus 30 Ml) 30 ml PO DAILY PRN PRN Reason: Upset Stomach Lorazepam (Ativan) 0.5 mg PO AMHS LACEY PRN Reason: Protocol Last Admin: 04/12/17 09:04 Dose: 0.5 mg Magnesium Hydroxide (Milk Of Magnesia) 30 ml PO DAILY PRN PRN Reason: Constipation Paroxetine HCl (Paxil) 10 mg PO HS LACEY Zaleplon (Sonata) 5 mg PO HS PRN PRN Reason: Insomnia Ziprasidone (Geodon Cap) 20 mg PO AMHS LACEY PRN Reason: Protocol Physical Exam - Head Exam Head Exam: ATRAUMATIC, NORMAL INSPECTION, NORMOCEPHALIC - Eye Exam Eye Exam: EOMI, Normal appearance, PERRL Pupil Exam: NORMAL ACCOMODATION, PERRL - ENT Exam ENT Exam: Mucous Membranes Moist, Normal Exam - Neck Exam Neck exam: Positive for: Normal Inspection - Respiratory Exam Respiratory Exam: Clear to Auscultation Bilateral, NORMAL BREATHING PATTERN. absent: Respiratory Distress - Cardiovascular Exam Cardiovascular Exam: REGULAR RHYTHM, RRR, +S1, +S2. absent: JVD, Rubs - GI/Abdominal Exam GI & Abdominal Exam: Normal Bowel Sounds. absent: Guarding, Pulsatile Mass, Rebound - Back Exam Back exam: NORMAL INSPECTION. absent: paraspinal tenderness - Neurological Exam Neurological exam: Alert, CN II-XII Intact, Oriented x3 - Psychiatric Exam Psychiatric exam: Anxious Results - Vital Signs Recent Vital Signs: Last Vital Signs Temp 97.8 F 04/12/17 06:52 Pulse 82 04/12/17 06:52 Resp 20 04/12/17 06:52 BP 128/80 04/12/17 06:52 Pulse Ox 99 04/11/17 17:52 - Labs Result Diagrams: 04/11/17 13:49 04/11/17 13:49 Assessment & Plan - Assessment and Plan (Free Text) Assessment: Potassium was slightly decreased this morning. Patient was repleted with KCL. Patient was examined at bedside. Patient reports no complaints at this time. Patient Physical Exam was benign Patient Vitals -97.8F -82HR -128/80 -20RR -100% on RA Smoking Cessation -Discussed with patient his smoking habits and counseled him on the importance of quitting was offered at patch. Patient has no interest in quitting at this time. Marijuana Cessation -Discussed with patient the possible harm his marijuana use could be doing and if he wanted help in stopping. Patient has no interest in quitting at this time. I have examined the patient and reviewed his lab results and imaging. This patient has been cleared medically. Signing off. <Claudio Man - Last Filed: 04/12/17 17:29> Meds - Medications Medications: Current Medications Acetaminophen (Tylenol 325mg Tab) 650 mg PO Q4 PRN PRN Reason: Pain, Mild (1-3) Al Hydrox/Mg Hydrox/Simethicone (Maalox Plus 30 Ml) 30 ml PO DAILY PRN PRN Reason: Upset Stomach Lorazepam (Ativan) 0.5 mg PO AMHS LACEY PRN Reason: Protocol Last Admin: 04/12/17 09:04 Dose: 0.5 mg Magnesium Hydroxide (Milk Of Magnesia) 30 ml PO DAILY PRN PRN Reason: Constipation Paroxetine HCl (Paxil) 10 mg PO HS LACEY Zaleplon (Sonata) 5 mg PO HS PRN PRN Reason: Insomnia Ziprasidone (Geodon Cap) 20 mg PO AMHS LACEY PRN Reason: Protocol Results - Vital Signs Recent Vital Signs: Last Vital Signs Temp 97.8 F 04/12/17 06:52 Pulse 83 04/12/17 16:09 Resp 20 04/12/17 06:52 BP 131/86 04/12/17 16:09 Pulse Ox 99 04/11/17 17:52 - Labs Result Diagrams: 04/11/17 13:49 04/11/17 13:49 Attending/Attestation - Attestation I have personally seen and examined this patient.: Yes I have fully participated in the care of the patient.: Yes I have reviewed all pertinent clinical information: Yes Notes (Text): 04/12/17 17:25 Attending note; Patient seen and examined with resident in the psychiatric floor. Patient is alert, awake and oriented. Complaining of anxiety. Denies other complaints. Patient is a 31 year old male with a past medical history of anxiety and depression that came in with reports of suicidal ideation. History of marijuana abuse. Complete drug abuse cessation is strongly advised. Smoker; refused NicoDerm patch. Complete smoking cessation is strongly advised. Labs reviewed. Hypokalemia; potassium supplemented. Mildly elevated wbc; no sign of infection. Patient is afebrile and nontoxic. Patient is medically stable. Please reconsult as needed. Patient is advised to follow-up with PMD Dr. Rivas. 04/12/17 17:29
--- NOTE | 2017-04-12 15:05 | PCM.PSYCH ---
Initial Psychiatric Evaluation - Initial Psychiatric Evaluation Type of Admission: Voluntary Legal Status: Capacity (pt has capacity to sign consent for treatment) Chief Complaint (in patient's own words): "I was seeing things, some figures, I saw a hair, faces, I hear male and female..., I also had thoughts of harming self, I was holding a knife towards my neck, then I thought that I want to jump off the bridge, I called ambulance.. " Patient's Reaction to Hospitalization: pt was admitted for evaluation of possible suicidal ideation, pt also reported psychotic symptoms, pt deemed to be in danger to self, as per pt, he was holding a knife close to his neck, but decided to call 911 and brought himself to the hospital, pt deemed to be in imminent danger and was offered admission to the psych unit, pt needs high level of care, further evaluation and stabilization, meds adjustment, observation. History of Present Illness and Precipitating Events: Pt is 31yo male long h/o mental illness, h/o hospitalizations (most recent was in this facility less than 2weeks ago), h/o noncompliance with meds, lives at [facility], called 911 because pt had SI with the plan to either cut his throat with a knife or jump off the bridge. Pt pose imminent danger in ED, needs higher level of care, was admitted for further evaluation and stabilization and meds adjustment. pt is poor and unreliable historian, was making contradiction statements, weird appearance, shaved hair off, to compare to the last admission pt had long and curly hair. pt has acceptable hygiene, good ADLs, pt was covering his head with the blanket during the interview. pt said that he was compliant with medications after the discharge in a few minutes pt said he was not taking meds and he was feeling that he is choking, feeling muscle pain, pt also reported that he had agorophobia and was not leaving his room in [facility] for days. Pt said when he is in the hospital he feels "safe", when pt was asked about thoughts of harming self, pt said that the day before yesterday he was thinking to either to jump off the bridge but yesterday pt was "holding a knife towards my neck". Pt said that he called 911 himself. pt also said that he could see "some shapes", when was asked more detailed questions "I could see some hair, faces", pt also said that he was hearing random male in female voices, but denied command type hallucinations. pt said that his expectation from this admission to be "on medical marijuana", this proposal manager writer educated pt that it is unrealistic plans. pt also said he cannot see the difference if he takes meds or not. when was asked why pt brought himself to the hospital, pt said "it is a good question... ", then refused to say anything else. pt said past psych h/o: "I had multiple suicidal attempts", first was at age of 7-8 "I missed my mom, I tried to hang myself on the tree, I saw how engine dispatcher were taking my mother", pt also tried to hang self at age of 13, then at age of 18 pt tried to overdose on drugs, pt has h/o cutting behavior. pt contracted for safety during the interview. family h/o: mother side h/o depression and anxiety, father's side one suicidal attempt one of pt's uncle hanged himself at age of 28. pt denied h/o abuse. pt reported to smoke two-three cigarettes a day, counseling provided, pt does not want to be on nicotine patch. pt said he smokes marijuana daily and this is the only thing which could help him, pt also said that he cannot afford to buy marijuana up until the end of the month because he purchased the phone recently. No side effects from meds, AIMS 0, no EPS. at the same time pt said "I did not want to continue on meds which do not work", offered dorina and volodymyr, risk, benefits and alternatives discussed with thept. as per staff pt is weird, no agitation or aggression. pt's pharmacy is closed today, will confirm meds tomorrow [facility] [place]o: h/o asthma, pt is very thin build, was seen by medical team. 04/11/17 13:49 04/11/17 13:49 Lab Results 04/11/17 16:27: Urine Opiates Screen Negative, Urine Methadone Screen Negative, Ur Barbiturates Screen Negative, Ur Phencyclidine Scrn Negative, Ur Amphetamines Screen Negative, U Benzodiazepines Scrn Negative, U Oth Cocaine Metabols Negative, U Cannabinoids Screen Positive H 04/11/17 16:27: Urine Color Yellow, Urine Appearance Clear, Urine pH 7.5, Ur Specific [place] 1.015, Urine Protein Negative, Urine Glucose (UA) Negative, Urine Ketones Negative, Urine Blood Negative, Urine Nitrate Negative, Urine Bilirubin Negative, Urine Urobilinogen 0.2, Ur Leukocyte Esterase Negative 04/11/17 15:35: Total Creatine Kinase 94 04/11/17 13:49: Alcohol, Quantitative < 10 04/11/17 13:49: Salicylates < 1 L, Acetaminophen < 10.0 L 04/11/17 13:49: Sodium 144, Potassium 3.2 L, Chloride 101, Carbon Dioxide 29, Anion Gap 17, BUN 5 L, Creatinine 0.8, Est GFR ( Amer) > 60, Est GFR (Non -Af Amer) > 60, Random Glucose 88, Calcium 9.2, Total Bilirubin 0.8, AST 27, ALT 35, Alkaline Phosphatase 96, Total Protein 8.2, Albumin 5.1 H, Globulin 3.1 , Albumin/Globulin Ratio 1.6 04/11/17 13:49: WBC 12.4 H D, RBC 5.13, Hgb 15.5, Hct 45.3, MCV 88.3, MCH 30.2, MCHC 34.2, RDW 13.4, Plt Count 253, MPV 9.0, Gran % 80.0 H, Lymph % (Auto) 12.0 L, [place] % (Auto) 7.6 H, Eos % (Auto) 0.2 L, Baso % (Auto) 0.2, Gran # 9.91 H, Lymph # 1.5, [place] # 0.9 H, Eos # 0.0, Baso # 0.02 Vital Signs Temp Pulse Resp BP Pulse Ox 04/12/17 06:52 97.8 F 82 20 128/80 04/11/17 18:32 16 04/11/17 17:52 16 99 04/11/17 16:16 98.2 F 88 18 130/96 H 98 04/11/17 13:50 982 F H 103 H 17 150/88 100 04/11/17 13:13 98.6 F 116 H 20 129/82 99 Current Medications: Active Medications Generic Name Dose Route Start Last Admin Trade Name Freq PRN Reason Stop Dose Admin Acetaminophen 650 mg 04/11/17 18:20 Tylenol 325mg Tab PO Q4 PRN Pain, Mild (1-3) Al Hydrox/Mg Hydrox/Simethicone 30 ml 04/11/17 18:20 Maalox Plus 30 Ml PO DAILY PRN Upset Stomach Lorazepam 0.5 mg 04/11/17 22:00 04/11/17 21:06 Ativan PO 0.5 mg AMHS LACEY Administration Protocol Magnesium Hydroxide 30 ml 04/11/17 18:20 Milk Of Magnesia PO DAILY PRN Constipation Quetiapine Fumarate 50 mg 04/11/17 22:00 04/11/17 21:07 Seroquel PO 50 mg AMHS LACEY Administration Protocol Zaleplon 5 mg 04/11/17 19:09 Sonata PO HS PRN Insomnia Past Psychiatric History - Past Psychiatric History Previous Treatment History: Inpatient Prior Professional Help: see HPI Prior Psychiatric Treatment: see HPI At what hospital: see HPI Duration: see HPI Nature of Treatment: see HPI Explanation of prior treatment: see HPI History of Abuse: see HPI History of ETOH/Drug Use: see HPI History of Family Illness: see HPI Pertinent Medical Hx (Current Medical&Sleep Prob, Allergies): Allergies Allergy/AdvReac Type Severity Reaction Status Date / Time olanzapine [From Zyprexa] AdvReac RASH Verified 04/11/17 18:53 Lorazepam [Ativan] 0.5 mg PO AMHS #14 tab 04/01/17 QUEtiapine [Seroquel] 50 mg PO AMHS #28 tab 04/01/17 Review of Systems - Review of Systems Systems not reviewed;Unavailable: Acuity of Condition - EENT Eyes: As Per HPI Ears: As Per HPI Nose/Mouth/Throat: As Per HPI - Cardiovascular Cardiovascular: As Per HPI - Respiratory Respiratory: As Per HPI - Gastrointestinal Gastrointestinal: As Per HPI - Genitourinary Genitourinary: As Per HPI - Reproductive: Male Reproductive:Male: As Per HPI - Musculoskeletal Musculoskeletal: As Par HPI - Integumentary Integumentary: As Per HPI - Neurological Neurological: As Per HPI - Psychiatric Psychiatric: As Per HPI - Endocrine Endocrine: As Per HPI - Hematologic/Lymphatic Hematologic: As Per HPI Mental Status Examination - Personal Presentation Personal Presentation: Looks stated age - Affect Affect: Flat - Motor Activity Motor Activity: Calm - Reliability in Providing Information Reliability in Providing Information: Poor, due to alteration in thoughts, Poor , due to cognitve impairment - Speech Speech: Disorganized - Mood Mood: Depressed, Anxious - Formal Thought Process Formal Thought Process: Hallucinations, Delusions, Paranoia, Loosening of associations, Circumstantial - Hallucinations/Delusions Delusions: Persecution - Obsessions/Compulsions Obsessions: None Compulsions: None - Cognitive Functions Orientation: Person, Place Sensorium: Alert Attention/Concentration: Easily distracted Abstract Thinking: [place] Estimate of Intelligence: Below average Judgement: Intact, as evidence by: Insight regarding need for hospitalization - Risk Risk: Self-mutilation, Diminished functioning - Strength & Assets Inventory Strength & Assets Inventory: Skills, Cooperative - Limitations Limitations: Other (chonic substance abuse) DSM 5 DX - DSM 5 DSM 5 Diagnosis: schizoaffective d/o anxiety nos cannabis abuse and dependence r/o substance induced psychosis r/o panic disorder with agoraphobia - Recommended/Plan of Treatment Treatment Recommendations and Plan of Treatment: milieu/structure/supportive therapy Lorazepam [Ativan] 0.5 mg PO AMHS will continue QUEtiapine [Seroquel] 50 mg PO AMHS will be d/c will start geodon 20mg po amhs for psychosis will start paxil 10mg po hs for depression and anxiety medical consult appreciated SW evaluation will monitor closely Projected ELOS: 7days Prognosis: guarded Discharge Plan and Discharge Criteria: Pt will be not depressed or manic, will be more hopeful, will be not psychotic or anxious, will be not having thoughts of harming self or others, will be tolerating medications well, will not have major side effects, will be able to function, will not pose threat to self or others. - Smoking Cessation Smoking Cessation Initiated: Yes
--- NOTE | 2017-04-13 11:30 | PCM.PYCHPN ---
Psychiatric Progress Note - Psychiatric Progress Note Patient seen today, length of contact: 30 minutes Patient Chief Complaint: "I did not sleep that well, I was circling around for 2 hours..." Problems Identified/Issues Discussed: Suicide/ homicide prevention, past psychiatric h/o, current psychiatric symptoms , medical problems, risk/benefits and alternatives of medications, medications compliance, coping strategies, substance abuse h/o, relapse prevention, importance of follow up with psychiatrist and therapist, discharge plan. Medical Problems: h/o asthma, was seen by medical team. Diagnostic Results: 04/11/17 13:49 04/11/17 13:49 Lab Results 04/11/17 16:27: Urine Opiates Screen Negative, Urine Methadone Screen Negative, Ur Barbiturates Screen Negative, Ur Phencyclidine Scrn Negative, Ur Amphetamines Screen Negative, U Benzodiazepines Scrn Negative, U Oth Cocaine Metabols Negative, U Cannabinoids Screen Positive H 04/11/17 16:27: Urine Color Yellow, Urine Appearance Clear, Urine pH 7.5, Ur Specific [place] 1.015, Urine Protein Negative, Urine Glucose (UA) Negative, Urine Ketones Negative, Urine Blood Negative, Urine Nitrate Negative, Urine Bilirubin Negative, Urine Urobilinogen 0.2, Ur Leukocyte Esterase Negative 04/11/17 15:35: Total Creatine Kinase 94 04/11/17 13:49: Alcohol, Quantitative < 10 04/11/17 13:49: Salicylates < 1 L, Acetaminophen < 10.0 L 04/11/17 13:49: Sodium 144, Potassium 3.2 L, Chloride 101, Carbon Dioxide 29, Anion Gap 17, BUN 5 L, Creatinine 0.8, Est GFR ( Amer) > 60, Est GFR (Non -Af Amer) > 60, Random Glucose 88, Calcium 9.2, Total Bilirubin 0.8, AST 27, ALT 35, Alkaline Phosphatase 96, Total Protein 8.2, Albumin 5.1 H, Globulin 3.1 , Albumin/Globulin Ratio 1.6 04/11/17 13:49: WBC 12.4 H D, RBC 5.13, Hgb 15.5, Hct 45.3, MCV 88.3, MCH 30.2, MCHC 34.2, RDW 13.4, Plt Count 253, MPV 9.0, Gran % 80.0 H, Lymph % (Auto) 12.0 L, [place] % (Auto) 7.6 H, Eos % (Auto) 0.2 L, Baso % (Auto) 0.2, Gran # 9.91 H, Lymph # 1.5, [place] # 0.9 H, Eos # 0.0, Baso # 0.02 Vital Signs Temp Pulse Resp BP Pulse Ox 04/13/17 07:14 98.5 F 88 20 111/73 04/13/17 07:11 98.5 F 88 20 04/12/17 16:09 83 131/86 04/12/17 06:52 97.8 F 82 20 128/80 04/11/17 18:32 16 04/11/17 17:52 16 99 04/11/17 16:16 98.2 F 88 18 130/96 H 98 04/11/17 13:50 982 F H 103 H 17 150/88 100 04/11/17 13:13 98.6 F 116 H 20 129/82 99 DSM 5 Symptoms Update: Pt is 31yo male long h/o mental illness, h/o hospitalizations (most recent was in this facility less than 2weeks ago), h/o noncompliance with meds, lives at [facility], called 911 because pt had SI with the plan to either cut his throat with a knife or jump off the bridge. Pt pose imminent danger in ED, needs higher level of care, was admitted for further evaluation and stabilization and meds adjustment. pt is poor and unreliable historian, was making conflicting statements, weird appearance, good ADLs, pt was covering his head with the blanket during the interview. pt observed talking to other pt, R,R, seems well related to her, when this write approached pt, affect became flat, pt tried to present more depressed and withdrawn than a few minutes before when pt was smiling and had a good time. pt said he did not sleep that well, "medication does not work", pt was educated that meds will start working in a few days. pt also said he has feeling that somebody is looking at him "I feel uncomfortable",pt was not able to identify is it paranoid ideation or anxiety. pt is compliant with medications, no side effects observed or reported, AIMS 0, no EPS. pt's tx goals: "to be less anxious". as per staff pt "enjoys staying in the hospital", pt does not have any psychotic /disorganized/aggressive behavior. Impression: as per h/o schizophrenia r/o schizoaffective disorder cannabis abuse/dependence Medication Change: Yes (paxil increased) Medical Record Reviewed: Yes Consults ordered or reviewed: medical consult appreciated Mental Status Examination - Cognitive Function Orientation: Person, Place Memory: Intact Attention: Poor Concentration: Poor Association: WNL Fund of Knowledge: WNL - Mood Mood: Depressed (some improvement), Anxious (some improvement) - Affect Affect: Flat - Formal Thought Process Formal Thought Process: Hallucinations, Delusions, Paranoia, Loosening of associations, Circumstantial - Suicidal Ideation Suicidal Ideation: No - Homicidal Ideation Homicidal Ideation: No Goal/Treatment Plan - Goal/Treatment Plan Need for Continued Stay: Remain at risks for inpatient hospitalization, Severe depression anxiety, Discharge may exacerbated symptoms, Severe functional impairment Progress Toward Problem(s) and Goals/Treatment Plan: milieu/structure/supportive therapy Lorazepam [Ativan] 0.5 mg PO AMHS will continue geodon 20mg po amhs for psychosis paxil 20mg po hs for depression and anxiety medical consult appreciated SW evaluation will monitor closely Estimated Date of D/C: 04/16/17 (we'll monitor closely)
--- NOTE | 2017-04-14 16:02 | PCM.PYCHPN ---
Psychiatric Progress Note - Psychiatric Progress Note Patient seen today, length of contact: 30 minutes Patient Chief Complaint: "I feel better" Problems Identified/Issues Discussed: Suicide/ homicide prevention, past psychiatric h/o, current psychiatric symptoms , medical problems, risk/benefits and alternatives of medications, medications compliance, coping strategies, substance abuse h/o, relapse prevention, importance of follow up with psychiatrist and therapist, discharge plan. Medical Problems: h/o asthma, was seen by medical team. Diagnostic Results: 04/11/17 13:49 04/11/17 13:49 Lab Results 04/11/17 16:27: Urine Opiates Screen Negative, Urine Methadone Screen Negative, Ur Barbiturates Screen Negative, Ur Phencyclidine Scrn Negative, Ur Amphetamines Screen Negative, U Benzodiazepines Scrn Negative, U Oth Cocaine Metabols Negative, U Cannabinoids Screen Positive H 04/11/17 16:27: Urine Color Yellow, Urine Appearance Clear, Urine pH 7.5, Ur Specific [place] 1.015, Urine Protein Negative, Urine Glucose (UA) Negative, Urine Ketones Negative, Urine Blood Negative, Urine Nitrate Negative, Urine Bilirubin Negative, Urine Urobilinogen 0.2, Ur Leukocyte Esterase Negative 04/11/17 15:35: Total Creatine Kinase 94 04/11/17 13:49: Alcohol, Quantitative < 10 04/11/17 13:49: Salicylates < 1 L, Acetaminophen < 10.0 L 04/11/17 13:49: Sodium 144, Potassium 3.2 L, Chloride 101, Carbon Dioxide 29, Anion Gap 17, BUN 5 L, Creatinine 0.8, Est GFR ( Amer) > 60, Est GFR (Non -Af Amer) > 60, Random Glucose 88, Calcium 9.2, Total Bilirubin 0.8, AST 27, ALT 35, Alkaline Phosphatase 96, Total Protein 8.2, Albumin 5.1 H, Globulin 3.1 , Albumin/Globulin Ratio 1.6 04/11/17 13:49: WBC 12.4 H D, RBC 5.13, Hgb 15.5, Hct 45.3, MCV 88.3, MCH 30.2, MCHC 34.2, RDW 13.4, Plt Count 253, MPV 9.0, Gran % 80.0 H, Lymph % (Auto) 12.0 L, [place] % (Auto) 7.6 H, Eos % (Auto) 0.2 L, Baso % (Auto) 0.2, Gran # 9.91 H, Lymph # 1.5, [place] # 0.9 H, Eos # 0.0, Baso # 0.02 Vital Signs Temp Pulse Resp BP Pulse Ox 04/13/17 07:14 98.5 F 88 20 111/73 04/13/17 07:11 98.5 F 88 20 04/12/17 16:09 83 131/86 04/12/17 06:52 97.8 F 82 20 128/80 04/11/17 18:32 16 04/11/17 17:52 16 99 04/11/17 16:16 98.2 F 88 18 130/96 H 98 04/11/17 13:50 982 F H 103 H 17 150/88 100 04/11/17 13:13 98.6 F 116 H 20 129/82 99 DSM 5 Symptoms Update: Pt is 31yo male long h/o mental illness, h/o hospitalizations (most recent was in this facility less than 2weeks ago), h/o noncompliance with meds, lives at [facility], called 911 because pt had SI with the plan to either cut his throat with a knife or jump off the bridge. Pt pose imminent danger in ED, needs higher level of care, was admitted for further evaluation and stabilization and meds adjustment. pt is poor and unreliable historian, was making conflicting statements, weird appearance, good ADLs, pt was covering his head with the blanket during the interview. pt observed talking to other pts well related, but when this write approached pt , affect became flat, pt tried to present more depressed and withdrawn than a few minutes before when pt was smiling and had a good time. pt said he feels better today, pt said that hallucinations are improving, will increase geodon. slept better. pt is compliant with medications, no side effects observed or reported, AIMS 0, no EPS. pt's tx goals: "to be less anxious". as per staff pt "enjoys staying in the hospital", pt does not have any psychotic /disorganized/aggressive behavior. Impression: as per h/o schizophrenia r/o schizoaffective disorder cannabis abuse/dependence Medication Change: Yes (geodon increased) Medical Record Reviewed: Yes Consults ordered or reviewed: medical consult appreciated Mental Status Examination - Cognitive Function Orientation: Person, Place Memory: Intact Attention: Poor Concentration: Poor Association: WNL Fund of Knowledge: WNL - Mood Mood: Depressed (some improvement), Anxious (some improvement) - Affect Affect: Flat - Formal Thought Process Formal Thought Process: Hallucinations, Delusions, Paranoia, Loosening of associations, Circumstantial - Suicidal Ideation Suicidal Ideation: No - Homicidal Ideation Homicidal Ideation: No Goal/Treatment Plan - Goal/Treatment Plan Need for Continued Stay: Remain at risks for inpatient hospitalization, Severe depression anxiety, Discharge may exacerbated symptoms, Severe functional impairment Progress Toward Problem(s) and Goals/Treatment Plan: milieu/structure/supportive therapy Lorazepam [Ativan] 0.5 mg PO AMHS will continue geodon 40mg po amhs for psychosis paxil 20mg po hs for depression and anxiety medical consult appreciated SW evaluation will monitor closely Estimated Date of D/C: 04/16/17 (we'll monitor closely)
--- NOTE | 2017-04-15 17:48 | PCM.PYCHPN ---
Psychiatric Progress Note - Psychiatric Progress Note Patient seen today, length of contact: 30 minutes Patient Chief Complaint: "I feel better" Problems Identified/Issues Discussed: Suicide/ homicide prevention, past psychiatric h/o, current psychiatric symptoms , medical problems, risk/benefits and alternatives of medications, medications compliance, coping strategies, substance abuse h/o, relapse prevention, importance of follow up with psychiatrist and therapist, discharge plan. Medical Problems: h/o asthma, was seen by medical team. Diagnostic Results: 04/11/17 13:49 04/11/17 13:49 Lab Results 04/11/17 16:27: Urine Opiates Screen Negative, Urine Methadone Screen Negative, Ur Barbiturates Screen Negative, Ur Phencyclidine Scrn Negative, Ur Amphetamines Screen Negative, U Benzodiazepines Scrn Negative, U Oth Cocaine Metabols Negative, U Cannabinoids Screen Positive H 04/11/17 16:27: Urine Color Yellow, Urine Appearance Clear, Urine pH 7.5, Ur Specific [place] 1.015, Urine Protein Negative, Urine Glucose (UA) Negative, Urine Ketones Negative, Urine Blood Negative, Urine Nitrate Negative, Urine Bilirubin Negative, Urine Urobilinogen 0.2, Ur Leukocyte Esterase Negative 04/11/17 15:35: Total Creatine Kinase 94 04/11/17 13:49: Alcohol, Quantitative < 10 04/11/17 13:49: Salicylates < 1 L, Acetaminophen < 10.0 L 04/11/17 13:49: Sodium 144, Potassium 3.2 L, Chloride 101, Carbon Dioxide 29, Anion Gap 17, BUN 5 L, Creatinine 0.8, Est GFR ( Amer) > 60, Est GFR (Non -Af Amer) > 60, Random Glucose 88, Calcium 9.2, Total Bilirubin 0.8, AST 27, ALT 35, Alkaline Phosphatase 96, Total Protein 8.2, Albumin 5.1 H, Globulin 3.1 , Albumin/Globulin Ratio 1.6 04/11/17 13:49: WBC 12.4 H D, RBC 5.13, Hgb 15.5, Hct 45.3, MCV 88.3, MCH 30.2, MCHC 34.2, RDW 13.4, Plt Count 253, MPV 9.0, Gran % 80.0 H, Lymph % (Auto) 12.0 L, [place] % (Auto) 7.6 H, Eos % (Auto) 0.2 L, Baso % (Auto) 0.2, Gran # 9.91 H, Lymph # 1.5, [place] # 0.9 H, Eos # 0.0, Baso # 0.02 Vital Signs Temp Pulse Resp BP Pulse Ox 04/13/17 07:14 98.5 F 88 20 111/73 04/13/17 07:11 98.5 F 88 20 04/12/17 16:09 83 131/86 04/12/17 06:52 97.8 F 82 20 128/80 04/11/17 18:32 16 04/11/17 17:52 16 99 04/11/17 16:16 98.2 F 88 18 130/96 H 98 04/11/17 13:50 982 F H 103 H 17 150/88 100 04/11/17 13:13 98.6 F 116 H 20 129/82 99 DSM 5 Symptoms Update: Pt is 31yo male long h/o mental illness, h/o hospitalizations (most recent was in this facility less than 2weeks ago), h/o noncompliance with meds, lives [facility], called 911 because pt had SI with the plan to either cut his throat with a knife or jump off the bridge. Pt pose imminent danger in ED, needs higher level of care, was admitted for further evaluation and stabilization and meds adjustment. Patient with much improvement,psychosis is better, depression is better, anxiety is better. pt observed talking to other pts well related, but when this write approached pt , affect became flat, pt tried to present more depressed and withdrawn than a few minutes before when pt was smiling and had a good time. pt said he feels better today, pt said that hallucinations are improving, will increase geodon. slept better. pt is compliant with medications, no side effects observed or reported, AIMS 0, no EPS. as per staff pt "enjoys staying in the hospital", pt does not have any psychotic /disorganized/aggressive behavior. possible discharge tomorrow Impression: as per h/o schizophrenia r/o schizoaffective disorder cannabis abuse/dependence Medication Change: Yes (geodon increased) Medical Record Reviewed: Yes Consults ordered or reviewed: medical consult appreciated Mental Status Examination - Cognitive Function Orientation: Person, Place Memory: Intact Attention: Poor (much better) Concentration: Poor (much better) Association: WNL Fund of Knowledge: WNL - Mood Mood: Depressed (I'm not depressed), Anxious (I feel little better but I'm concerned about outside) - Affect Affect: Constricted (bbut reactive) - Speech Speech: Appropriate - Formal Thought Process Formal Thought Process: Hallucinations (denied), Delusions (denied), Paranoia ( better), Circumstantial (chronic) - Suicidal Ideation Suicidal Ideation: No - Homicidal Ideation Homicidal Ideation: No Goal/Treatment Plan - Goal/Treatment Plan Need for Continued Stay: Remain at risks for inpatient hospitalization, Severe depression anxiety, Discharge may exacerbated symptoms, Severe functional impairment Progress Toward Problem(s) and Goals/Treatment Plan: milieu/structure/supportive therapy Lorazepam [Ativan] 0.5 mg PO AMHS will continue geodon 40mg po amhs for psychosis paxil 20mg po hs for depression and anxiety medical consult appreciated SW evaluation will monitor closely Estimated Date of D/C: 04/16/17 (we'll monitor closely)
[2017-04-16 07:21] VITALS: BP 122/81; PULSE 89; TEMP 98.2
--- NOTE | 2017-04-16 15:39 | PCM.PYCHDC ---
Mental Status Examination - Mental Status Examination Orientation: Person, Place, Situation, Time Memory: Intact Mood: Neutral Affect: Broad (and mood congruent) Speech: Appropriate Attention: WNL Concentration: WNL Association: WNL Fund of Knowledge: WNL Formal Thought Process: Other (some circumstantiality and tangentiality in thought process) Description of patient's judgement and insight: Pt has improved insight into mental and medical illness, pt was compliant with medications and unit rules and regulations, pt was going to groups, was calm, cooperative, socially appropriate, no behavioral incidents, no agitation, no aggression. Psychotic Thoughts and Behaviors: Pt denied v/a/t hallucinations, denied paranoid ideations, pt does not appear to be psychotic, and thought process is goal directed. Suicidal Ideation: No Current Homicidal Ideation?: No Plan: pt adamantly denied thoughts of harming self or others denied intent or plan. Discharge Summary - Discharge Note Reason for Hospitalization: pt was admitted for evaluation of possible suicidal ideation, pt also reported psychotic symptoms, pt deemed to be in danger to self, as per pt, he was holding a knife close to his neck, but decided to call 911 and brought himself to the hospital, pt deemed to be in imminent danger and was offered admission to the psych unit, pt needs high level of care, further evaluation and stabilization, meds adjustment, observation. Psychiatric History (includes Medical, Family, Personal Hx): see HPI Laboratory Data: 04/11/17 13:49 04/11/17 13:49 Lab Results 04/11/17 16:27: Urine Opiates Screen Negative, Urine Methadone Screen Negative, Ur Barbiturates Screen Negative, Ur Phencyclidine Scrn Negative, Ur Amphetamines Screen Negative, U Benzodiazepines Scrn Negative, U Oth Cocaine Metabols Negative, U Cannabinoids Screen Positive H 04/11/17 16:27: Urine Color Yellow, Urine Appearance Clear, Urine pH 7.5, Ur Specific [place] 1.015, Urine Protein Negative, Urine Glucose (UA) Negative, Urine Ketones Negative, Urine Blood Negative, Urine Nitrate Negative, Urine Bilirubin Negative, Urine Urobilinogen 0.2, Ur Leukocyte Esterase Negative 04/11/17 15:35: Total Creatine Kinase 94 04/11/17 13:49: Alcohol, Quantitative < 10 04/11/17 13:49: Salicylates < 1 L, Acetaminophen < 10.0 L 04/11/17 13:49: Sodium 144, Potassium 3.2 L, Chloride 101, Carbon Dioxide 29, Anion Gap 17, BUN 5 L, Creatinine 0.8, Est GFR ( Amer) > 60, Est GFR (Non -Af Amer) > 60, Random Glucose 88, Calcium 9.2, Total Bilirubin 0.8, AST 27, ALT 35, Alkaline Phosphatase 96, Total Protein 8.2, Albumin 5.1 H, Globulin 3.1 , Albumin/Globulin Ratio 1.6 04/11/17 13:49: WBC 12.4 H D, RBC 5.13, Hgb 15.5, Hct 45.3, MCV 88.3, MCH 30.2, MCHC 34.2, RDW 13.4, Plt Count 253, MPV 9.0, Gran % 80.0 H, Lymph % (Auto) 12.0 L, [place] % (Auto) 7.6 H, Eos % (Auto) 0.2 L, Baso % (Auto) 0.2, Gran # 9.91 H, Lymph # 1.5, [place] # 0.9 H, Eos # 0.0, Baso # 0.02 Vital Signs Temp Pulse Resp BP Pulse Ox 04/16/17 07:20 98.2 F 89 20 122/81 04/15/17 16:00 96 H 114/64 04/15/17 07:23 0.4 F L 71 20 113/73 04/14/17 07:27 98.5 F 72 20 109/71 04/13/17 07:14 98.5 F 88 20 111/73 04/13/17 07:11 98.5 F 88 20 04/13/17 04:00 73 114/76 04/12/17 16:09 83 131/86 04/12/17 06:52 97.8 F 82 20 128/80 04/11/17 18:32 16 04/11/17 17:52 16 99 04/11/17 16:16 98.2 F 88 18 130/96 H 98 04/11/17 13:50 982 F H 103 H 17 150/88 100 04/11/17 13:13 98.6 F 116 H 20 129/82 99 Consultations:: List each consultation separately and include: 1. Reason for request. 2. Findings. 3. Follow-up Consultations: medical consult appreciated see notes for more detailed information Summary of Hospital Course include:: 1. Description of specific treatment plan utilized for patients during their course of treatmen. 2. Summarize the time- course for resolution of acute symptoms and/or regressed behaviors. 3. Describe issues identified and worked on during hospitalization. 4. Describe medication utilized. 5. Describe medical problems identified and treated. 6. Reassessment of suicide risk Summary of Hospital Course: Pt is 31yo male long h/o mental illness, h/o hospitalizations (most recent was in this facility less than 2weeks ago), h/o noncompliance with meds, lives at [facility], called 911 because pt had SI with the plan to either cut his throat with a knife or jump off the bridge. Pt pose imminent danger in ED, needs higher level of care, was admitted for further evaluation and stabilization and meds adjustment. at the time of admission patient presented to be a poor and unreliable historian , was making contradiction statements, weird appearance, shaved hair off, to compare to the last admission pt had long and curly hair. pt has acceptable hygiene, good ADLs, pt was covering his head with the blanket during the interview. pt said that he was compliant with medications after the discharge in a few minutes pt said he was not taking meds and he was feeling that he is choking, feeling muscle pain, pt also reported that he had agorophobia and was not leaving his room in [facility] for days. Pt said when he is in the hospital he feels "safe", when pt was asked about thoughts of harming self, pt said that the day before yesterday he was thinking to either to jump off the bridge but yesterday pt was "holding a knife towards my neck". Pt said that he called 911 himself. pt also said that he could see "some shapes", when was asked more detailed questions "I could see some hair, faces", pt also said that he was hearing random male in female voices, but denied command type hallucinations. pt said that his expectation from this admission to be "on medical marijuana", this commercial underwriter educated pt that it is unrealistic plans. 04/11/17 13:49 04/11/17 13:49 Lab Results 04/11/17 16:27: Urine Opiates Screen Negative, Urine Methadone Screen Negative, Ur Barbiturates Screen Negative, Ur Phencyclidine Scrn Negative, Ur Amphetamines Screen Negative, U Benzodiazepines Scrn Negative, U Oth Cocaine Metabols Negative, U Cannabinoids Screen Positive H 04/11/17 16:27: Urine Color Yellow, Urine Appearance Clear, Urine pH 7.5, Ur Specific [place] 1.015, Urine Protein Negative, Urine Glucose (UA) Negative, Urine Ketones Negative, Urine Blood Negative, Urine Nitrate Negative, Urine Bilirubin Negative, Urine Urobilinogen 0.2, Ur Leukocyte Esterase Negative 04/11/17 15:35: Total Creatine Kinase 94 04/11/17 13:49: Alcohol, Quantitative < 10 04/11/17 13:49: Salicylates < 1 L, Acetaminophen < 10.0 L 04/11/17 13:49: Sodium 144, Potassium 3.2 L, Chloride 101, Carbon Dioxide 29, Anion Gap 17, BUN 5 L, Creatinine 0.8, Est GFR ( Amer) > 60, Est GFR (Non -Af Amer) > 60, Random Glucose 88, Calcium 9.2, Total Bilirubin 0.8, AST 27, ALT 35, Alkaline Phosphatase 96, Total Protein 8.2, Albumin 5.1 H, Globulin 3.1 , Albumin/Globulin Ratio 1.6 04/11/17 13:49: WBC 12.4 H D, RBC 5.13, Hgb 15.5, Hct 45.3, MCV 88.3, MCH 30.2, MCHC 34.2, RDW 13.4, Plt Count 253, MPV 9.0, Gran % 80.0 H, Lymph % (Auto) 12.0 L, [place] % (Auto) 7.6 H, Eos % (Auto) 0.2 L, Baso % (Auto) 0.2, Gran # 9.91 H, Lymph # 1.5, [place] # 0.9 H, Eos # 0.0, Baso # 0.02 Vital Signs Temp Pulse Resp BP Pulse Ox 04/12/17 06:52 97.8 F 82 20 128/80 04/11/17 18:32 16 04/11/17 17:52 16 99 04/11/17 16:16 98.2 F 88 18 130/96 H 98 04/11/17 13:50 982 F H 103 H 17 150/88 100 04/11/17 13:13 98.6 F 116 H 20 129/82 99 atient was stabilized on the following medications: Lorazepam [Ativan] 0.5 mg PO AMHS or anxiety geodon 40mg po amhs for psychosis paxil 20mg po hs for depression and anxiety patient tolerated medications well, no side effects observed or reported, aims 0 , no EPS. Over the course of this hospitalization pt was attending groups, pt also had medication management, had therapeutic milieu. Overall pt improved significantly, less than a car to, less anxious, less depressed, pts insight improved as well and soon pt deemed to be ready for discharge. At the time of the discharge pt denied been depressed, denied thoughts of harming self or others, denied psychotic symptoms, and pt does not appeared to be psychotic, denied been anxious, was considered to pose no imminent danger to self or others, will be following up at [facility] intensive outpatient program, information about follow up appointment, time and address provided to the pt, it is patient responsibility to follow up with outpatient clinic, PMD as well as specialists (see SW note for more detailed information). In case pt will need to obtain results of studies pending at discharge pt was provided with contact information of Psychiatric Inpatient unit [phone] as well as Medical Record Department [phone]. counseling about marijuana cessation provided pt was provided with prescriptions for all of medications (please see medication reconciliation form) Pt was educated about safety plan in case of worsening of symptoms or in case of suicidal or homicidal ideation call 911 or go to the nearest ER, also was educated to take meds as prescribed and stay away from drugs, pt verbalized understanding. 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 - Final Diagnosis (DSM 5) Condition upon Discharge: FAIR Disposition: HOME/ ROUTINE Follow-up Treatment Plan: At the time of the discharge pt denied been depressed, denied thoughts of harming self or others, denied psychotic symptoms, and pt does not appeared to be psychotic, denied been anxious, was considered to pose no imminent danger to self or others, will be following up at [facility] intensive outpatient program, information about follow up appointment, time and address provided to the pt, it is patient responsibility to follow up with outpatient clinic, PMD as well as specialists (see SW note for more detailed information). In case pt will need to obtain results of studies pending at discharge pt was provided with contact information of Psychiatric Inpatient unit [phone] as well as Medical Record Department [phone]. counseling about marijuana cessation provided pt was provided with prescriptions for all of medications (please see medication reconciliation form) Pt was educated about safety plan in case of worsening of symptoms or in case of suicidal or homicidal ideation call 911 or go to the nearest ER, also was educated to take meds as prescribed and stay away from drugs, pt verbalized understanding. Prescriptions/Medication Reconciliation: LORazepam [Ativan] 0.5 mg PO AMHS PRN #14 tab PRN Reason: Anxiety PARoxetine [Paxil] 20 mg PO HS #14 tab Ziprasidone [Geodon] 40 mg PO AMHS #30 cap
== END 2017-04-16 14:17 | disposition home or self-care (01) | DRG 885 ==
LOC: ED 13:07 → ERH 17:18 → PSYC 18:04
PROVIDERS: ADMIT Psychiatry & Neurology Psychiatry; ATTEND Psychiatry & Neurology Psychiatry
PROC: GZ3ZZZZ Medication Management (ICD-10-PCS; principal; 2017-04-11)
DX: F25.9 Schizoaffective disorder, unspecified (principal); R45.851 Suicidal ideations; F19.959 Other psychoactive substance use, unspecified with psychoactive substance-induced psychotic disorder, unspecified; R44.3 Hallucinations, unspecified; F12.20 Cannabis dependence, uncomplicated; F41.9 Anxiety disorder, unspecified; E87.6 Hypokalemia; J45.909 Unspecified asthma, uncomplicated; F17.210 Nicotine dependence, cigarettes, uncomplicated; Z91.14 Patient's other noncompliance with medication regimen

== ENCOUNTER 2017-04-27 11:22 | Inpatient (IN) | payer MEDICARE, MEDICAID ==
[2017-04-27 11:32] VITALS: BMI 20.2
--- NOTE | 2017-04-27 11:47 | ED PDOC ---
Arrival/HPI - General Chief Complaint: Psychiatric Evaluation Time Seen by Provider: 04/27/17 11:29 Historian: Patient - History of Present Illness Narrative History of Present Illness (Text): 04/27/17 11:35 A 31 year old male was brought into the emergency department by EMS for psych evaluation. Patient presents accompanied by Annita Gonzalez from [facility] for suicidal ideation. He also reports auditory and visual hallucinations. Patient states he has not been compliant with his medications. Patient denies any fever, chills, nausea, vomiting, abdominal pain, chest pain, shortness of breath, homicidal ideation or any other complaints. PMD: Dr. Garland Rivas Time/Duration: Other (today) Symptom Course: Unchanged Quality: Other Context: Other Past Medical History - Provider Review Nursing Documentation Reviewed: Yes - Infectious Disease Hx of Infectious Diseases: None - Tetanus Immunization Tetanus Immunization: Up to Date - Past Medical History Past Medical History: No Previous - Cardiac Hx Cardiac Disorders: No - Pulmonary Hx Respiratory Disorders: No - Neurological Hx Neurological Disorder: No - HEENT Hx HEENT Disorder: No - Renal Hx Renal Disorder: No - Endocrine/Metabolic Hx Endocrine Disorders: No - Hematological/Oncological Hx Blood Disorders: No - Integumentary Hx Dermatological Disorder: No - Musculoskeletal/Rheumatological Hx Falls: No - Gastrointestinal Hx Gastrointestinal Disorders: No - Genitourinary/Gynecological Hx Genitourinary Disorders: No Hx Reproductive Disorders: No - Psychiatric Hx Depression: Yes Hx Schizophrenia: Yes Hx Substance Use: Yes - Past Surgical History Past Surgical History: No Previous - Anesthesia Hx Anesthesia: No - Suicidal Assessment Feels Threatened In Home Enviroment: Yes Family/Social History - Physician Review Nursing Documentation Reviewed: Yes Family/Social History: No Known Family HX Smoking Status: Current Some Days Smoker Hx Alcohol Use: No Hx Substance Use: Yes Substance used: marijuana Hx Substance Use Treatment: No Allergies/Home Meds Allergies/Adverse Reactions: Allergies olanzapine [From Zyprexa] Adverse Reaction (Verified 04/11/17 18:53) RASH Review of Systems - Physician Review All systems were reviewed & negative as marked: Yes - Review of Systems Constitutional: absent: Fevers, Night Sweats Respiratory: absent: SOB Cardiovascular: absent: Chest Pain Gastrointestinal: absent: Abdominal Pain, Nausea, Vomiting Psychiatric: Suicidal Ideation, Other (Auditory/Visual hallucinations. NO homicidal ideation) Physical Exam Vital Signs Reviewed: Yes Vital Signs Temp Pulse Resp BP Pulse Ox 04/27/17 11:37 98.2 F 99 H 16 129/79 99 Temperature: Afebrile Blood Pressure: Normal Pulse: Tachycardic Respiratory Rate: Normal Appearance: Positive for: Well-Appearing, Non-Toxic, Comfortable Pain Distress: None Mental Status: Positive for: Alert and Oriented X 3 - Systems Exam Head: Present: Atraumatic, Normocephalic Pupils: Present: PERRL Extroacular Muscles: Present: EOMI Conjunctiva: Present: Normal Mouth: Present: Moist Mucous Membranes Neck: Present: Normal Range of Motion Respiratory/Chest: Present: Clear to Auscultation, Good Air Exchange. No: Respiratory Distress, Accessory Muscle Use Cardiovascular: Present: Regular Rate and Rhythm, Normal S1, S2. No: Murmurs Abdomen: Present: Normal Bowel Sounds. No: Tenderness, Distention, Peritoneal Signs Back: Present: Normal Inspection Upper Extremity: Present: Normal Inspection. No: Cyanosis, Edema Lower Extremity: Present: Normal Inspection. No: Edema Neurological: Present: GCS=15, CN II-XII Intact, Speech Normal Skin: Present: Warm, Dry, Normal Color, Other (Well healed cuts on the right jonathan of chest wall, no active bleeding). No: Rashes Psychiatric: Present: Alert, Oriented x 3, Suicidal Ideation, Hallucinations. No: Homicidal Ideation Medical Decision Making ED Course and Treatment: 04/27/17 11:35 Impression: A 31 year old male with suicidal ideation. Patient notes auditory and visual hallucinations. Differential Diagnosis included but are not limited to: Suicidal Ideation, Auditory/Visual Hallucinations Plan: -- Chest xray -- EKG -- Labs -- Urinalysis -- Reassess and disposition Progress Notes: 04/27/17 12:44 Patient is comfortable and will be evaluated by PES. Patient is medically cleared for psych evaluation and possible admission. Report Date : 04/27/2017 12:36:01 Procedure: Chest xray Dictator : Srikanth Reese MD IMPRESSION: No active disease. 04/27/17 13:11 Case discussed with SASHA Granados and patient will be admitted to Psych under Dr. Greer Shelby. r/o Schizophrenia. - Lab Interpretations Lab Results: 04/27/17 12:00 04/27/17 12:00 Lab Results 04/27/17 12:00: Alcohol, Quantitative < 10 04/27/17 12:00: Salicylates < 1 L, Acetaminophen < 10.0 L 04/27/17 12:00: Sodium 143, Potassium 4.1, Chloride 106, Carbon Dioxide 28, Anion Gap 13, BUN 8, Creatinine 0.7, Est GFR ( Amer) > 60, Est GFR (Non- Af Amer) > 60, Random Glucose 103, Calcium 9.2, Total Bilirubin 0.3, AST 21, ALT 27, Alkaline Phosphatase 91, Total Protein 6.4, Albumin 4.1, Globulin 2.3, Albumin/Globulin Ratio 1.8 04/27/17 12:00: WBC 4.7 D, RBC 4.48, Hgb 13.7 L, Hct 41.3 L, MCV 92.2 D, MCH 30.6, MCHC 33.2, RDW 13.9, Plt Count 216, MPV 9.1, Gran % 54.4, Lymph % (Auto) 33.7, [place] % (Auto) 8.3 H, Eos % (Auto) 3.2, Baso % (Auto) 0.4, Gran # 2.57, Lymph # 1.6, [place] # 0.4, Eos # 0.2, Baso # 0.02 I have reviewed the lab results: Yes - RAD Interpretation Radiology Orders: 04/27/17 11:35 CHEST PORTABLE [RAD] Stat - Scribe Statement The provider has reviewed the documentation as recorded by the Mukeshibjordon Ornelas Provider Scribe Attestation: All medical record entries made by the Scribe were at my direction and personally dictated by me. I have reviewed the chart and agree that the record accurately reflects my personal performance of the history, physical exam, medical decision making, and the department course for this patient. I have also personally directed, reviewed, and agree with the discharge instructions and disposition. Disposition/Present on Arrival - Present on Arrival Any Indicators Present on Arrival: No History of DVT/PE: No History of Uncontrolled Diabetes: No Urinary Catheter: No History of Decub. Ulcer: No History Surgical Site Infection Following: None - Disposition Have Diagnosis and Disposition been Completed?: Yes Diagnosis: Suicidal ideation Disposition Time: 12:45 Patient Plan: Admission Patient Problems: Current Active Problems Problem Status Onset Suicidal ideation Acute Condition: FAIR
[2017-04-27 12:05] LABS: BASO # 0.02 K/mm3 (0.0-2.0); BASO % 0.4 % (0.0-3.0); EOS # 0.2 (0.0-0.7); EOS % 3.2 % (1.5-5.0); GRAN # 2.57 (1.4-6.5); GRAN % 54.4 % (50.0-68.0); HEMATOCRIT 41.3 % (42.0-52.0); LYMPH # 1.6 (1.2-3.4); LYMPH % 33.7 % (22.0-35.0); MEAN CELL VOLUME 92.2 fl (80.0-105.0); MEAN CORPUSCULAR HEMOGLOBIN 30.6 pg (25.0-35.0); MEAN CORPUSCULAR HGB CONC 33.2 g/dl (31.0-37.0); MEAN PLATELET VOLUME 9.1 fl (7.0-11.0); MONO # 0.4 (0.1-0.6); MONO % 8.3 % (1.0-6.0); RED CELL DISTRIBUTION WIDTH 13.9 % (11.5-14.5); WHITE BLOOD COUNT 4.7 10^3/ul (4.5-11.0)
[2017-04-27 12:13] LABS: ALB/GLOB RATIO 1.8 (1.1-1.8); ALKALINE PHOSPHATASE 91 U/L (38-126); ALT/SGPT 27 U/L (7-56); AST/SGOT 21 U/L (17-59); BILIRUBIN,TOTAL 0.3 mg/dL (0.2-1.3); BLOOD UREA NITROGEN 8 mg/dL (7-21); CALCIUM 9.2 mg/dL (8.4-10.5); CARBON DIOXIDE 28 mmol/L (21-33); CHLORIDE 106 mmol/L (98-107); GFR AFRICAN-AMERICAN > 60; GLUCOSE,RANDOM 103 mg/dL (70-110); POTASSIUM 4.1 mmol/L (3.6-5.0); SODIUM 143 mmol/L (132-148); TOTAL PROTEIN 6.4 g/dL (5.8-8.3)
--- NOTE | 2017-04-27 12:37 | RAD ---
HISTORY: psych COMPARISON: Comparison chest 04/11/2017 FINDINGS: LUNGS: No active pulmonary disease. PLEURA: No significant pleural effusion identified, no pneumothorax apparent. CARDIOVASCULAR: Normal. OSSEOUS STRUCTURES: No significant abnormalities. VISUALIZED UPPER ABDOMEN: Normal. OTHER FINDINGS: None. IMPRESSION: No active disease.
--- NOTE | 2017-04-27 15:18 | PCM.BM ---
<Rm Franks - Last Filed: 04/27/17 15:20> Treatment Plan Problems - Problems identified on initial assessmt MEDS NONADHERENCE Date Initiated: 04/27/17 Time Initiated: 15:16 Assessment reference: HP, NA Status: Active HOPLESSNESS/HELPLESSNESS Date Initiated: 04/27/17 Time Initiated: 15:18 Assessment reference: HP, NA Status: Active SOCOAL ISOLATION Date Initiated: 04/27/17 Time Initiated: 15:18 Assessment reference: HP, NA Status: Active Treatment assets and liabiliti Patient Assests: cooperative, resourceful, self-reliant, ADL independent, physically healthy, negotiates basic needs, cognitively intact Patient Liabilities: live alone, poor support system, relationship conflicts - Milieu Protocol Maintain good personal hygiene: daily Encourage regular showers, daily Remind patient to perform daily oral care, daily Assist patient to perform ADL's Maintain personal safety: daily Educate patient to report safety concerns to staff, daily Monitor environment for contraband/sharps Medication safety: Monitor for expected outcome, potential side effects: daily, Assess barriers to learning: daily, Assess readiness for medication education: daily Discharge/Continuing Care - Education Needs Education Needs: Patient Medication, Patient Diagnosis/Disease Process, Patient Coping Skills, Patient Anger Management skills, Patient Community resources, Patient Activities of Daily Living, Patient Uses of Medical Equipment, Patient Health Practices/Safety, Patient Personal Hygiene/Grooming, Patient Aftercare Safety Plan, Patient Other - Discharge Discharge Criteria: Tolerates medication w/o severe side effects, Free of Suicidal thoughts, Free of Homicidal thoughts, Free of paranoid thoughts, Free of agitation, Normal sleep pattern, Ability to care for self Discharge to:: Home <Ivelisse Hector - Last Filed: 04/29/17 13:23> Family Contact Family involvement: Famliy/SO not involved <Greer Shelby - Last Filed: 04/30/17 07:36> - Diagnosis (1) Schizophrenia Status: Acute Interventions: 04/30/17 07:37 Psychoeducation/psychotherapy Psychopharmacology/adjustment of medications as needed/ monitoring possible side effects Evaluate pt on daily basis Compliance with medications and follow up appointments Long acting medication if pt is noncompliant with pill form Suicide and homicide risk assessment and prevention, coping strategies, safety plan Relapse prevention Reduction of symptoms Improve functional status Possible assertive community treatment Cognitive behavioral therapy Family involvement Possible social skill training as outpatient (2) Cannabis abuse with physiological dependence Status: Chronic Interventions: 04/30/17 07:37 Maintaining sobriety Relapse prevention Possible rehabilitation Motivational interviewing 12-step programs: AA meetings <Laney Duke - Last Filed: 05/03/17 16:21>
--- NOTE | 2017-04-27 22:44 | CARD ---
APPROVED REPORT EKG Measurement Heart [id number] <Conclusion> Normal sinus rhythm Normal ECG
[2017-04-28 08:14] LABS: CHOLESTEROL 117 mg/dL (130-200)
[2017-04-28 08:28] LABS: FREE T4 0.72 ng/dL (0.78-2.19)
[2017-04-28 08:42] LABS: THYROID STIMULATING HORMONE 0.33 mIU/mL (0.46-4.68)
--- NOTE | 2017-04-28 14:38 | PCM.PSYCH ---
Initial Psychiatric Evaluation - Initial Psychiatric Evaluation Type of Admission: Voluntary Legal Status: Capacity (pt has capacity to sign treatment) Chief Complaint (in patient's own words): "I am very anxious, I feel like I am going to flip the table...." Patient's Reaction to Hospitalization: pt was admitted for possible suicidal ideation. History of Present Illness and Precipitating Events: Pt is 31yo male long h/o mental illness, schizophrenia spectrum disorder, cannabis abuse/dependence, chronic noncompliance with medications, multiple previous hospitalizations into this facility (most recent was April 17), lives in [facility], pt was brought in by Annita Gonzalez from [facility] for evaluation of possible suicidal ideation, as per report [facility] was called by [facility] program due to patient verbalizing suicidal ideation with the plan to cut himself, pt has been non compliant with medications, reported being depressed, reported to have difficulties with sleep and appetite, abusing marijuana, reported visual and auditory hallucinations. Due to the severity of patients symptoms, suicidal ideation with the plan to cut himself, psychosis, pt could not be maintained as outpatient setting (pt was sent by IDT program), needs further evaluation and stabilization in acute psychiatric unit. Personal hygiene/ ADLS: poor, pt presented to be anxious, rocking back and forth , said that he feels very anxious, said that "I am so anxious, I want to flip the table.." pt said that he was not able to afford medications because of copayment, this blurb writer called to the [facility] pharmacy, as per pharmacist report pt was never charged any copayments. when confronted pt was not able to tolerate it , walked out the room angry. Psychosis:disorganized, reported v/a/t hallucinations. Depression:pt said that he was feeling depressed and hopeless, pt denied saying that he wants to end up his life but "I said I wanted to cut myself because of anxiety". Suicidal thoughts/plans/intent: pt denied. Anxiety: presented anxious, denied h/o abuse. Substance abuse: smokes marijuana. smokes two -three cigarettes a day, Smoking: counseling provided, nicotine patch offered, pt does not want to be on nicotine patch. Smoking Cessation Counseling: The patient was counseled as to the multiple risks to his/her health from continued use of tobacco products. It was explained that continuing to smoke may lead to multiple short and rat exterminator negative health consequences, including but not limited to mouth/esophageal /lung cancer, COPD, and heart disease. He/she states he/she understands these risks, and also understands the options and resources available to him/her to help him/her stop smoking. Nicotine replacement therapy, local hotlines, and local resources were discussed as viable options for helping him/her stop his/her tobacco use. The total time spent counseling the patient regarding tobacco cessation was 3 minutes Past psychiatric h/o:schizophrenia as per previous record pt said past psych h/o : "I had multiple suicidal attempts", first was at age of 7-8 "I missed my mom, I tried to hang myself on the tree, I saw how supervisor engine repair were taking my mother", pt also tried to hang self at age of 13, then at age of 18 pt tried to overdose on drugs, pt has h/o cutting behavior. pt contracted for safety during the interview. family h/o: mother side h/o depression and anxiety, father's side one suicidal attempt one of pt's uncle hanged himself at age of 28. Medical h/o: h/o asthma Social h/o: lives in [facility], does not work Treatment goals: "to feel better" Labs: 04/27/17 12:00 04/27/17 12:00 Lab Results 04/28/17 06:00: Free T4 0.72 L, TSH 3rd Generation 0.33 L 04/28/17 06:00: Triglycerides 167 H, Cholesterol 117 L, LDL Cholesterol Direct 59, HDL Cholesterol 32 04/27/17 12:00: Alcohol, Quantitative < 10 04/27/17 12:00: Salicylates < 1 L, Acetaminophen < 10.0 L 04/27/17 12:00: Sodium 143, Potassium 4.1, Chloride 106, Carbon Dioxide 28, Anion Gap 13, BUN 8, Creatinine 0.7, Est GFR ( Amer) > 60, Est GFR (Non- Af Amer) > 60, Random Glucose 103, Calcium 9.2, Total Bilirubin 0.3, AST 21, ALT 27, Alkaline Phosphatase 91, Total Protein 6.4, Albumin 4.1, Globulin 2.3, Albumin/Globulin Ratio 1.8 04/27/17 12:00: WBC 4.7 D, RBC 4.48, Hgb 13.7 L, Hct 41.3 L, MCV 92.2 D, MCH 30.6, MCHC 33.2, RDW 13.9, Plt Count 216, MPV 9.1, Gran % 54.4, Lymph % (Auto) 33.7, [place] % (Auto) 8.3 H, Eos % (Auto) 3.2, Baso % (Auto) 0.4, Gran # 2.57, Lymph # 1.6, [place] # 0.4, Eos # 0.2, Baso # 0.02 Vital Signs Temp Pulse Resp BP Pulse Ox 04/28/17 07:00 98.1 F 67 18 109/76 98 04/27/17 15:12 98.4 F 72 20 113/77 04/27/17 11:37 98.2 F 99 H 16 129/79 99 MSE: Pt deemed to be unreliable historian, agitated, angry, looks stated age, very think build, poor personal hygiene, good ADLs, psychomotor agitation, speech was : underproductive, eye contact: intense, mood described: "I am very anxious", affect: flat/angry, thought process:disorganized , thought content: denied SI/ HI, pt has poor insight/judgment, unpredictable impulse control Impression: schizophrenia as per h/o cannabis abuse/dependence Plan: Milieu/structure/supportive therapy Medical consult SW consultation for Med management geodon 20mg po bid for psychosis resumed paxil 10mg po hs for depression and anxiety sonata prn for insomnia Family involvement Follow up on labs Will monitor closely Pt was educated about risk/benefits and alternatives of medications Current Medications: Active Medications Generic Name Dose Route Start Last Admin Trade Name Freq PRN Reason Stop Dose Admin Hydroxyzine Pamoate 50 mg 04/27/17 16:00 04/27/17 16:09 Vistaril PO 50 mg Q8 PRN Administration Anxiety Protocol Paroxetine HCl 10 mg 04/27/17 22:00 04/27/17 22:16 Paxil PO 10 mg HS LACEY Administration Zaleplon 5 mg 04/27/17 16:03 04/27/17 22:16 Sonata PO 5 mg HS PRN Administration Insomnia Ziprasidone 20 mg 04/27/17 16:15 04/27/17 16:08 Geodon Cap PO 20 mg BID LACEY Administration Protocol Past Psychiatric History - Past Psychiatric History Pertinent Medical Hx (Current Medical&Sleep Prob, Allergies): Allergies Allergy/AdvReac Type Severity Reaction Status Date / Time olanzapine [From Zyprexa] AdvReac RASH Verified 04/27/17 14:23 LORazepam [Ativan] 0.5 mg PO [facility] PRN #14 tab 04/15/17 PARoxetine [Paxil] 20 mg PO HS #14 tab 04/15/17 Ziprasidone [Geodon] 40 mg PO [facility] #30 cap 04/15/17
--- NOTE | 2017-04-28 20:11 | CP.PCM.CON ---
Addendum entered and electronically signed by DELBERT ROSEN, 04/28/17 20:38 : Of note, PMD is Dr. Garland Bennett Original Note: <DELBERT ROSEN - Last Filed: 04/28/17 20:21> History of Present Illness - History of Present Illness History of Present Illness: Delbert Rosen PGY1 Medicine Consult Note for Dr. Man Mr. Hammer is it 31 year old male with PMH marijuana dependence and medical non- compliance, with psych history significant for schizophrenia, anxiety, depression with suicidal ideation and attempts [facility] for [facility] ideations. Medicine is consulted for medical clearance. The patient has had multiple visits to the ED and the psych unit for hallucinations and depression. When asked about his suicidal ideations, the patient states that he has previously cut himself, and that it is too late for us to try and change that. The patient seems reluctant to stay in the psych unit and mentions that he will make use of the 48-hour consent and leave since he feels that he is not being properly managed in the unit. The patient states that the medications started for him are not helping, and that he was on better medications before. The patient also states that if he was to just use marijuana , it would be able to calm him down more than any medications. Patient denies any chest pain, fevers, shortness of breath, weakness, golf, nausea vomiting diarrhea. The patient does state that he is interested in getting tested for HIV and other STDs. When asked why the patient states that he is interested in knowing what he has and what he doesn't have, but denies any IV drug use, multiple sexual partners or other risk factors. Also interested in nicotine patch. The patient is anxious and feels there are cameras watching him. 10- point ROS was reviewed and otherwise unremarkable. SHx: marijuana regularly, tobacco a pack a day. denies any alcohol use. Review of Systems - Review of Systems All systems: reviewed and no additional remarkable complaints except (as per HPI ) Past Patient History - Infectious Disease Hx of Infectious Diseases: None - Tetanus Immunizations Tetanus Immunization: Up to Date - Past Social History Smoking Status: Heavy Smoker > 10 Cigarettes Daily Alcohol: None Drugs: Cannabis Home Situation {Lives}: Alone - CARDIAC Hx Cardiac Disorders: No - PULMONARY Hx Respiratory Disorders: No - NEUROLOGICAL Hx Neurological Disorder: No - HEENT Hx HEENT Problems: No - RENAL Hx Chronic Kidney Disease: No - ENDOCRINE/METABOLIC Hx Endocrine Disorders: No - HEMATOLOGICAL/ONCOLOGICAL Hx Blood Disorders: No - INTEGUMENTARY Hx Dermatological Problems: No - MUSCULOSKELETAL/RHEUMATOLOGICAL Hx Falls: No - GASTROINTESTINAL Hx Gastrointestinal Disorders: No - GENITOURINARY/GYNECOLOGICAL Hx Genitourinary Disorders: No Hx Reproductive Disorders: No - PSYCHIATRIC Hx Psychophysiologic Disorder: Yes Hx Anxiety: Yes Hx Depression: Yes Hx Hallucinations: Yes Hx Schizophrenia: Yes Hx Substance Use: Yes (marijuana ) - SURGICAL HISTORY Hx Surgeries: No - ANESTHESIA Hx Anesthesia: No Meds Allergies/Adverse Reactions: Allergies Allergy/AdvReac Type Severity Reaction Status Date / Time olanzapine [From Zyprexa] AdvReac RASH Verified 04/27/17 14:23 - Medications Medications: Current Medications Acetaminophen (Tylenol 325mg Tab) 650 mg PO Q6H PRN PRN Reason: Pain, moderate (4-7) Last Admin: 04/28/17 13:55 Dose: 650 mg Hydroxyzine Pamoate (Vistaril) 50 mg PO Q8 PRN; Protocol PRN Reason: Anxiety Last Admin: 04/28/17 17:04 Dose: 50 mg Nicotine (Nicoderm Cq) 1 patch TD DAILY LACEY Last Admin: 04/28/17 13:55 Dose: 1 patch Paroxetine HCl (Paxil) 10 mg PO HS LACEY Last Admin: 04/27/17 22:16 Dose: 10 mg Zaleplon (Sonata) 5 mg PO HS PRN PRN Reason: Insomnia Last Admin: 04/27/17 22:16 Dose: 5 mg Ziprasidone (Geodon Cap) 20 mg PO BID LACEY PRN Reason: Protocol Last Admin: 04/28/17 15:31 Dose: 20 mg Physical Exam - Constitutional Appears: No Acute Distress - Head Exam Head Exam: NORMAL INSPECTION - Eye Exam Eye Exam: EOMI, Normal appearance, PERRL - ENT Exam ENT Exam: Mucous Membranes Moist - Neck Exam Neck exam: Positive for: Normal Inspection - Respiratory Exam Respiratory Exam: Clear to Auscultation Bilateral, NORMAL BREATHING PATTERN. absent: Wheezes - Cardiovascular Exam Cardiovascular Exam: RRR, +S1, +S2 - GI/Abdominal Exam GI & Abdominal Exam: Normal Bowel Sounds, Soft. absent: Distended, Tenderness - Extremities Exam Extremities exam: Positive for: normal inspection - Back Exam Back exam: NORMAL INSPECTION - Neurological Exam Neurological exam: Alert, Oriented x3 Additional comments: pt is pacing back and forth around unit and is noted to be swaying back and forth and constantly fidgeting - Psychiatric Exam Psychiatric exam: Anxious, Flat Affect, Suicidal Ideation - Skin Skin Exam: Normal Color, Warm Results - Vital Signs Recent Vital Signs: Last Vital Signs Temp 98.1 F 04/28/17 07:00 Pulse 67 04/28/17 07:00 Resp 18 04/28/17 07:00 BP 109/76 04/28/17 07:00 Pulse Ox 98 04/28/17 07:00 - Labs Result Diagrams: 04/27/17 12:00 04/27/17 12:00 Labs: Laboratory Results - last 24 hr 04/28/17 04/28/17 04/28/17 06:00 06:00 06:00 Triglycerides 167 H Cholesterol 117 L LDL Cholesterol Direct 59 HDL Cholesterol 32 Free T4 0.72 L TSH 3rd Generation 0.33 L RPR Nonreactive Assessment & Plan - Assessment and Plan (Free Text) Assessment: 31 year old male with PMH marijuana dependence and medical non-compliance, with psych history significant for schizophrenia, anxiety, depression with suicidal ideation and attempts admitted [facility] unit from [facility] for suicidal ideations. Medicine is consulted for medical clearance. 1. Tobacco use - nicotine patch - pt educated on cessation of smoking tobacco and the negative effects of tobacco 2. Marijuana dependence - The pt is educated on the negative effects of marijuana - encouraged to stop 3. HLD - kiln tender referral 4. STI - HIV, hepatitis, chlamydia/gh ordered - RPR negative in 09/2016 - hepatitis panel negative in 02/2015 5. Fidgeting and discomfort likely due to anxiety vs EPS - pt is on Geodon - recommend cogentin - monitor for other signs of EPS - management per psych team 6. ?Hypothyroid on labs - unlikely accurate values due to unnatural low T4 if true hypothyroid 7. schizophrenia and depression w/ suicidal ideations - cont treatment as per psych team Will f/u results of STI orders if pertinent. Will sign off patient for now. If needed, please re-consult Thank you Delbert Rosen PGY1 Dr. Man, Attending Physician - Date & Time Date: 04/28/17 Time: 11:45 <Claudio Man - Last Filed: 04/29/17 07:43> Meds - Medications Medications: Current Medications Acetaminophen (Tylenol 325mg Tab) 650 mg PO Q6H PRN PRN Reason: Pain, moderate (4-7) Last Admin: 04/28/17 13:55 Dose: 650 mg Hydroxyzine Pamoate (Vistaril) 50 mg PO Q8 PRN; Protocol PRN Reason: Anxiety Last Admin: 04/28/17 17:04 Dose: 50 mg Nicotine (Nicoderm Cq) 1 patch TD DAILY LACEY Last Admin: 04/28/17 13:55 Dose: 1 patch Paroxetine HCl (Paxil) 10 mg PO HS LACEY Last Admin: 04/28/17 21:25 Dose: 10 mg Zaleplon (Sonata) 5 mg PO HS PRN PRN Reason: Insomnia Last Admin: 04/28/17 21:25 Dose: 5 mg Ziprasidone (Geodon Cap) 20 mg PO BID LACEY PRN Reason: Protocol Last Admin: 04/28/17 15:31 Dose: 20 mg Results - Vital Signs Recent Vital Signs: Last Vital Signs Temp 98.1 F 04/28/17 22:46 Pulse 67 04/28/17 22:46 Resp 18 04/28/17 22:46 BP 109/76 04/28/17 22:46 Pulse Ox 98 04/28/17 22:46 - Labs Result Diagrams: 04/27/17 12:00 04/27/17 12:00 Labs: Laboratory Results - last 24 hr 04/28/17 04/28/17 04/28/17 06:00 06:00 06:00 Triglycerides 167 H Cholesterol 117 L LDL Cholesterol Direct 59 HDL Cholesterol 32 Free T4 0.72 L TSH 3rd Generation 0.33 L RPR Nonreactive Attending/Attestation - Attestation I have personally seen and examined this patient.: Yes I have fully participated in the care of the patient.: Yes I have reviewed all pertinent clinical information: Yes Notes (Text): 04/29/17 07:38 Attending note; Patient seen and examined with resident in psychiatric floor. Patient is alert, awake and oriented. Looks anxious. Constantly moving. Patient is a 31 year old male with PMH marijuana dependence and medical non- compliance, with psych history significant for schizophrenia, anxiety, depression with suicidal ideation is admitted with suicidal ideation. Patient has no significant medical history. Not on any medications at home. Labs reviewed. Mildly elevated triglyceride. Dietitian evaluation requested. Low TSH and free T4. Needs repeat testing in 4-6 weeks. Active smoking; smoking cessation is strongly advised. Started on NicoDerm patch Marijuana abuse; drug abuse cessation is strongly advised. Patient is requesting STD workup including HIV, chlamydia. Currently no symptoms. Labs ordered. Please follow up results Case discussed with psychiatrist in detail. Patient is medically stable now. Please reconsult as needed. Thank you for the courtesy of this consultation. Patient is advised to follow-up with PMD Dr.nathaniel villalobos. 04/29/17 07:42
--- NOTE | 2017-04-29 12:21 | PCM.PYCHPN ---
Psychiatric Progress Note - Psychiatric Progress Note Patient seen today, length of contact: 30min Patient Chief Complaint: "I have that tactile sensation that everybody knows the secret but me..." Medical Problems: h/o asthma Diagnostic Results: 04/27/17 12:00 04/27/17 12:00 Lab Results 04/28/17 06:00: Free T4 0.72 L, TSH 3rd Generation 0.33 L 04/28/17 06:00: RPR Nonreactive 04/28/17 06:00: Triglycerides 167 H, Cholesterol 117 L, LDL Cholesterol Direct 59, HDL Cholesterol 32 04/27/17 12:00: Alcohol, Quantitative < 10 04/27/17 12:00: Salicylates < 1 L, Acetaminophen < 10.0 L 04/27/17 12:00: Sodium 143, Potassium 4.1, Chloride 106, Carbon Dioxide 28, Anion Gap 13, BUN 8, Creatinine 0.7, Est GFR ( Amer) > 60, Est GFR (Non- Af Amer) > 60, Random Glucose 103, Calcium 9.2, Total Bilirubin 0.3, AST 21, ALT 27, Alkaline Phosphatase 91, Total Protein 6.4, Albumin 4.1, Globulin 2.3, Albumin/Globulin Ratio 1.8 04/27/17 12:00: WBC 4.7 D, RBC 4.48, Hgb 13.7 L, Hct 41.3 L, MCV 92.2 D, MCH 30.6, MCHC 33.2, RDW 13.9, Plt Count 216, MPV 9.1, Gran % 54.4, Lymph % (Auto) 33.7, [place] % (Auto) 8.3 H, Eos % (Auto) 3.2, Baso % (Auto) 0.4, Gran # 2.57, Lymph # 1.6, [place] # 0.4, Eos # 0.2, Baso # 0.02 Vital Signs Temp Pulse Resp BP Pulse Ox 04/29/17 08:06 98.3 F 67 18 115/82 04/28/17 22:46 98.1 F 67 18 109/76 98 04/28/17 07:00 98.1 F 67 18 109/76 98 04/27/17 15:12 98.4 F 72 20 113/77 04/27/17 11:37 98.2 F 99 H 16 129/79 99 DSM 5 Symptoms Update: Pt is 31yo male long h/o mental illness, schizophrenia spectrum disorder, cannabis abuse/dependence, chronic noncompliance with medications, multiple previous hospitalizations into this facility (most recent was April 17), lives in [facility], pt was brought in by Annita Gonzalez from [facility] for evaluation of possible suicidal ideation, as per report mobile crisis was called by [facility] program due to patient verbalizing suicidal ideation with the plan to cut himself, pt has been non compliant with medications, reported being depressed, reported to have difficulties with sleep and appetite, abusing marijuana, reported visual and auditory hallucinations. as per RN report pt is disorganized, but has good appetite and sleep. pt was seen at the tx team meeting room, pt anxious/thin looking man, covers his head with the blanket, which gives pt weird look. pt said "I have that sensation that everyone knows the secret but me", when was asked what secret pt said "this is what I want to know too", pt said that he has some tactile "hallucinations that lady was looking for me to take my blood" . thought process is disorganized. yesterday submitted 48hr notice, today rescinded it. MSE: Pt deemed to be unreliable historian, anxious/angry, looks stated age, very think build, poor personal hygiene, good ADLs, mild psychomotor agitation, speech was: underproductive, eye contact: intense, mood described: "I want to know the secret", affect: flat/angry, thought process:disorganized , thought content: denied SI/ HI, pt has poor insight/judgment, unpredictable impulse control Impression: schizophrenia as per h/o cannabis abuse/dependence Plan: Milieu/structure/supportive therapy Medical consult SW consultation for Med management geodon 20mg po tid for psychosis paxil 20mg po hs for depression and anxiety sonata prn for insomnia Family involvement Follow up on labs Will monitor closely Pt was educated about risk/benefits and alternatives of medications Medication Change: Yes (geodon and paxil increased) Medical Record Reviewed: Yes Consults ordered or reviewed: medical consult appreciated Mental Status Examination - Homicidal Ideation Homicidal Ideation: No Goal/Treatment Plan - Goal/Treatment Plan Need for Continued Stay: Severe depression anxiety, Failed transitioning, Severe functional impairment Estimated Date of D/C: 05/03/17
--- NOTE | 2017-04-30 12:23 | PCM.PYCHPN ---
Psychiatric Progress Note - Psychiatric Progress Note Patient seen today, length of contact: 30min Patient Chief Complaint: "I was doing better on seroquel..." Medical Problems: h/o asthma Diagnostic Results: 04/27/17 12:00 04/27/17 12:00 Lab Results 04/28/17 06:00: Free T4 0.72 L, TSH 3rd Generation 0.33 L 04/28/17 06:00: RPR Nonreactive 04/28/17 06:00: Triglycerides 167 H, Cholesterol 117 L, LDL Cholesterol Direct 59, HDL Cholesterol 32 04/27/17 12:00: Alcohol, Quantitative < 10 04/27/17 12:00: Salicylates < 1 L, Acetaminophen < 10.0 L 04/27/17 12:00: Sodium 143, Potassium 4.1, Chloride 106, Carbon Dioxide 28, Anion Gap 13, BUN 8, Creatinine 0.7, Est GFR ( Amer) > 60, Est GFR (Non- Af Amer) > 60, Random Glucose 103, Calcium 9.2, Total Bilirubin 0.3, AST 21, ALT 27, Alkaline Phosphatase 91, Total Protein 6.4, Albumin 4.1, Globulin 2.3, Albumin/Globulin Ratio 1.8 04/27/17 12:00: WBC 4.7 D, RBC 4.48, Hgb 13.7 L, Hct 41.3 L, MCV 92.2 D, MCH 30.6, MCHC 33.2, RDW 13.9, Plt Count 216, MPV 9.1, Gran % 54.4, Lymph % (Auto) 33.7, [place] % (Auto) 8.3 H, Eos % (Auto) 3.2, Baso % (Auto) 0.4, Gran # 2.57, Lymph # 1.6, [place] # 0.4, Eos # 0.2, Baso # 0.02 Vital Signs Temp Pulse Resp BP Pulse Ox 04/29/17 08:06 98.3 F 67 18 115/82 04/28/17 22:46 98.1 F 67 18 109/76 98 04/28/17 07:00 98.1 F 67 18 109/76 98 04/27/17 15:12 98.4 F 72 20 113/77 04/27/17 11:37 98.2 F 99 H 16 129/79 99 Temp Pulse Resp BP Pulse Ox 98.1 F 82 20 121/75 99 04/30/17 06:48 04/30/17 06:48 04/30/17 06:48 04/30/17 06:48 04/30/17 06:48 DSM 5 Symptoms Update: Pt is 31yo male long h/o mental illness, schizophrenia spectrum disorder, cannabis abuse/dependence, chronic noncompliance with medications, multiple previous hospitalizations into this facility (most recent was April 17), lives in [facility], pt was brought in by Annita Gonzalez from [facility] for evaluation of possible suicidal ideation, as per report mobile crisis was called by [facility] program due to patient verbalizing suicidal ideation with the plan to cut himself, pt has been non compliant with medications, reported being depressed, reported to have difficulties with sleep and appetite, abusing marijuana, reported visual and auditory hallucinations. as per RN report pt is disorganized, but has good appetite and sleep. pt was seen at the tx team meeting room, pt less anxious/thin looking man, hygiene is better, pt shaved. pt said that he was doing better on seroquel and asked this senior writer to resume it , pt said that he has some tactile "hallucinations, some waves". thought process is disorganized. MSE: Pt deemed to be unreliable historian, anxious/irritable, looks stated age, very think build, acceptable personal hygiene, good ADLs, there is no psychomotor agitation or retardation, speech was: underproductive, eye contact: intense, mood described: "I feel little better", affect: flat/angry, thought process: disorganized , thought content: denied SI/ HI, some tactile hallucinations, paranoia is prominent, pt has poor insight/judgment, unpredictable impulse control Impression: schizophrenia as per h/o cannabis abuse/dependence Plan: Milieu/structure/supportive therapy Medical consult SW consultation for Med management dorina rankin/james seroquel 50mg po amhs for psychosis paxil 20mg po hs for depression and anxiety sonata prn for insomnia Family involvement, pt has no family whom he would like to include into his tx Follow up on labs Will monitor closely Pt was educated about risk/benefits and alternatives of medications, coping strategies (safety plan, suicide prevention), relapse prevention, importance of follow up with psychiatrist and therapist, stay away from drugs/alcohol/smoking Medication Change: Yes (dorina rankin/james, seroquel started) Medical Record Reviewed: Yes Consults ordered or reviewed: medical consult appreciated Mental Status Examination - Homicidal Ideation Homicidal Ideation: No Goal/Treatment Plan - Goal/Treatment Plan Need for Continued Stay: Severe depression anxiety, Failed transitioning, Severe functional impairment Estimated Date of D/C: 05/03/17
--- NOTE | 2017-05-01 08:41 | PCM.PYCHPN ---
Psychiatric Progress Note - Psychiatric Progress Note Patient seen today, length of contact: 25 min Patient Chief Complaint: anxious Problems Identified/Issues Discussed: I reviewed assessment and recent notes. I met with patient at bedside in isolation room. He is unkempt and appears tired, preoccupied and odd. Patient keeps the blankets over his head. Eye contact is poor and speech is low and mumbled at times. Reports that his mood is "anxious". Denies suicidal or homicidal thoughts. Denies hallucinations this morning. Patient doesn't appear to be responding to internal stimuli. Denies any new discomfort or pain. Staff notes indicate that patient appears and behaves bizarrely on the unit. This provider agrees with staff that this appears volitional. He reports anxiety and has been attention seeking. There were no other major behavioral issues overnight Diagnostic Results: schizophrenia as per h/o cannabis abuse/dependence Medication Change: Yes (started ativan) Medical Record Reviewed: Yes Mental Status Examination - Homicidal Ideation Homicidal Ideation: No Goal/Treatment Plan - Goal/Treatment Plan Need for Continued Stay: Severe depression anxiety, Failed transitioning, Severe functional impairment Progress Toward Problem(s) and Goals/Treatment Plan: * c/w current tx and plan * Ativan 0.5 mg po AMHS prn started on 05/01/17 for anxiety * No new weekend labs thus far * Vitals reviewed and noted below: Selected Entries 04/30/17 04/30/17 06:48 16:00 Temperature 98.1 F Pulse Rate 82 82 Respiratory 20 Rate Blood Pressure 121/75 127/90 Estimated Date of D/C: 05/03/17
[2017-05-02 06:56] VITALS: O2SAT 97
--- NOTE | 2017-05-02 08:58 | PCM.PYCHPN ---
Psychiatric Progress Note - Psychiatric Progress Note Patient seen today, length of contact: 25 min Patient Chief Complaint: "very anxious and paranoid" Problems Identified/Issues Discussed: I reviewed recent notes and met with patient at bedside. He is unkempt and appears tired, preoccupied and odd. Eye contact is poor and speech is low and mumbled. Reports that his mood is "very anxious and paranoid". Affect is flat. Denies suicidal or homicidal thoughts. Denies hallucinations this morning. Patient doesn't appear to be responding to internal stimuli. Denies any new discomfort or pain. Slept better last night. Staff notes indicate that patient appears and behaves oddly on the unit. This provider agrees with staff that this appears volitional. He reported anxiety and paranoia to staff yesterday and has been attention seeking. There were no other major behavioral issues overnight Diagnostic Results: schizophrenia as per h/o cannabis abuse/dependence Medication Change: Yes (started ativan) Medical Record Reviewed: Yes Mental Status Examination - Cognitive Function Orientation: Person, Place, Situation Attention: WNL - Mood Mood: Depressed, Anxious - Affect Affect: Flat - Speech Speech: Soft - Formal Thought Process Formal Thought Process: Paranoia - Suicidal Ideation Suicidal Ideation: No - Homicidal Ideation Homicidal Ideation: No Goal/Treatment Plan - Goal/Treatment Plan Need for Continued Stay: Severe depression anxiety, Failed transitioning, Severe functional impairment Progress Toward Problem(s) and Goals/Treatment Plan: * c/w current tx and plan * Ativan 0.5 mg po AMHS prn started on 05/01/17 for anxiety * No new weekend labs * Vitals reviewed and noted below: Selected Entries 04/30/17 04/30/17 05/01/17 06:48 16:00 07:09 Temperature 98.1 F Pulse Rate 82 82 69 Respiratory 20 20 Rate Blood Pressure 121/75 127/90 115/79 O2 Sat by Pulse 99 Oximetry 05/01/17 16:26 Temperature Pulse Rate 97 H Respiratory Rate Blood Pressure 100/57 L O2 Sat by Pulse Oximetry Estimated Date of D/C: 05/03/17
--- NOTE | 2017-05-03 17:33 | PCM.PYCHPN ---
Psychiatric Progress Note - Psychiatric Progress Note Patient seen today, length of contact: 25 min Patient Chief Complaint: "I was doing better on seroquel..." Medical Problems: h/o asthma Diagnostic Results: 04/27/17 12:00 04/27/17 12:00 Lab Results 04/28/17 06:00: Free T4 0.72 L, TSH 3rd Generation 0.33 L 04/28/17 06:00: RPR Nonreactive 04/28/17 06:00: Triglycerides 167 H, Cholesterol 117 L, LDL Cholesterol Direct 59, HDL Cholesterol 32 04/27/17 12:00: Alcohol, Quantitative < 10 04/27/17 12:00: Salicylates < 1 L, Acetaminophen < 10.0 L 04/27/17 12:00: Sodium 143, Potassium 4.1, Chloride 106, Carbon Dioxide 28, Anion Gap 13, BUN 8, Creatinine 0.7, Est GFR ( Amer) > 60, Est GFR (Non- Af Amer) > 60, Random Glucose 103, Calcium 9.2, Total Bilirubin 0.3, AST 21, ALT 27, Alkaline Phosphatase 91, Total Protein 6.4, Albumin 4.1, Globulin 2.3, Albumin/Globulin Ratio 1.8 04/27/17 12:00: WBC 4.7 D, RBC 4.48, Hgb 13.7 L, Hct 41.3 L, MCV 92.2 D, MCH 30.6, MCHC 33.2, RDW 13.9, Plt Count 216, MPV 9.1, Gran % 54.4, Lymph % (Auto) 33.7, [place] % (Auto) 8.3 H, Eos % (Auto) 3.2, Baso % (Auto) 0.4, Gran # 2.57, Lymph # 1.6, [place] # 0.4, Eos # 0.2, Baso # 0.02 Vital Signs Temp Pulse Resp BP Pulse Ox 04/29/17 08:06 98.3 F 67 18 115/82 04/28/17 22:46 98.1 F 67 18 109/76 98 04/28/17 07:00 98.1 F 67 18 109/76 98 04/27/17 15:12 98.4 F 72 20 113/77 04/27/17 11:37 98.2 F 99 H 16 129/79 99 Temp Pulse Resp BP Pulse Ox 98.1 F 82 20 121/75 99 04/30/17 06:48 04/30/17 06:48 04/30/17 06:48 04/30/17 06:48 04/30/17 06:48 DSM 5 Symptoms Update: Pt is 31yo male long h/o mental illness, schizophrenia spectrum disorder, cannabis abuse/dependence, chronic noncompliance with medications, multiple previous hospitalizations into this facility (most recent was April 17), lives in [facility], pt was brought in by Annita Gonzalez from mobile crisis for evaluation of possible suicidal ideation, as per report mobile crisis was called by [facility] program due to patient verbalizing suicidal ideation with the plan to cut himself, pt has been non compliant with medications, reported being depressed, reported to have difficulties with sleep and appetite, abusing marijuana, reported visual and auditory hallucinations. as per RN report pt is disorganized, but has good appetite and sleep. pt was seen at TV room, pt less anxious/thin looking man, hygiene is better, pt shaved, c/o anxiety and hallucinations. willing to increase seroquel, ativan was started by . MSE: Pt deemed to be unreliable historian, anxious/irritable, looks stated age, very think build, acceptable personal hygiene, good ADLs, there is no psychomotor agitation or retardation, speech was: underproductive, eye contact: intense, mood described: "I feel little better", affect: flat/angry, thought process: disorganized , thought content: denied SI/ HI, some tactile hallucinations, paranoia is prominent, pt has poor insight/judgment, unpredictable impulse control Impression: schizophrenia as per h/o cannabis abuse/dependence Plan: Milieu/structure/supportive therapy Medical consult SW consultation for Med management geodon d/c seroquel 100mg po amhs for psychosis paxil 20mg po hs for depression and anxiety ativan bid by Hung marsh for insomnia Family involvement, pt has no family whom he would like to include into his tx Follow up on labs Will monitor closely Pt was educated about risk/benefits and alternatives of medications, coping strategies (safety plan, suicide prevention), relapse prevention, importance of follow up with psychiatrist and therapist, stay away from drugs/alcohol/smoking Medication Change: Yes (seroquel increased) Medical Record Reviewed: Yes Mental Status Examination - Suicidal Ideation Suicidal Ideation: No - Homicidal Ideation Homicidal Ideation: No Goal/Treatment Plan - Goal/Treatment Plan Need for Continued Stay: Severe depression anxiety, Failed transitioning, Severe functional impairment Estimated Date of D/C: 05/05/17
--- NOTE | 2017-05-04 16:12 | PCM.PYCHPN ---
Psychiatric Progress Note - Psychiatric Progress Note Patient seen today, length of contact: 30min Patient Chief Complaint: "I feel better" Medical Problems: h/o asthma Diagnostic Results: 04/27/17 12:00 04/27/17 12:00 Lab Results 04/28/17 06:00: Free T4 0.72 L, TSH 3rd Generation 0.33 L 04/28/17 06:00: RPR Nonreactive 04/28/17 06:00: Triglycerides 167 H, Cholesterol 117 L, LDL Cholesterol Direct 59, HDL Cholesterol 32 04/27/17 12:00: Alcohol, Quantitative < 10 04/27/17 12:00: Salicylates < 1 L, Acetaminophen < 10.0 L 04/27/17 12:00: Sodium 143, Potassium 4.1, Chloride 106, Carbon Dioxide 28, Anion Gap 13, BUN 8, Creatinine 0.7, Est GFR ( Amer) > 60, Est GFR (Non- Af Amer) > 60, Random Glucose 103, Calcium 9.2, Total Bilirubin 0.3, AST 21, ALT 27, Alkaline Phosphatase 91, Total Protein 6.4, Albumin 4.1, Globulin 2.3, Albumin/Globulin Ratio 1.8 04/27/17 12:00: WBC 4.7 D, RBC 4.48, Hgb 13.7 L, Hct 41.3 L, MCV 92.2 D, MCH 30.6, MCHC 33.2, RDW 13.9, Plt Count 216, MPV 9.1, Gran % 54.4, Lymph % (Auto) 33.7, [place] % (Auto) 8.3 H, Eos % (Auto) 3.2, Baso % (Auto) 0.4, Gran # 2.57, Lymph # 1.6, [place] # 0.4, Eos # 0.2, Baso # 0.02 Vital Signs Temp Pulse Resp BP Pulse Ox 04/29/17 08:06 98.3 F 67 18 115/82 04/28/17 22:46 98.1 F 67 18 109/76 98 04/28/17 07:00 98.1 F 67 18 109/76 98 04/27/17 15:12 98.4 F 72 20 113/77 04/27/17 11:37 98.2 F 99 H 16 129/79 99 Temp Pulse Resp BP Pulse Ox 98.1 F 82 20 121/75 99 04/30/17 06:48 04/30/17 06:48 04/30/17 06:48 04/30/17 06:48 04/30/17 06:48 DSM 5 Symptoms Update: Pt is 31yo male long h/o mental illness, schizophrenia spectrum disorder, cannabis abuse/dependence, chronic noncompliance with medications, multiple previous hospitalizations into this facility (most recent was April 17), lives in [facility], pt was brought in by Annita Gonzalez from mobile crisis for evaluation of possible suicidal ideation, as per report mobile crisis was called by [facility] due to patient verbalizing suicidal ideation with the plan to cut himself, pt has been non compliant with medications, reported being depressed, reported to have difficulties with sleep and appetite, abusing marijuana, reported visual and auditory hallucinations. as per RN report pt is pleasant, more organized, has good appetite and sleep. pt was seen next to the nursing station, pt less anxious/thin looking man, hygiene is better, pt shaved, pt said that he feels better but still has some tactile hallucinations which are chronic in nature. MSE: Pt deemed better, looks stated age, very think build, acceptable personal hygiene, good ADLs, there is no psychomotor agitation or retardation, speech was : underproductive, eye contact: intense, mood described: "I feel little better, I am less anxious", affect: flat but pt is less irritable, thought process: more organized , thought content: denied SI/ HI, some tactile hallucinations, paranoia is better, pt has improved insight/judgment, impulses are well controlled. Impression: schizophrenia as per h/o cannabis abuse/dependence Plan: Milieu/structure/supportive therapy Medical consult SW consultation for Med management geodon d/c seroquel 100mg po amhs for psychosis paxil 40mg po hs for depression and anxiety ativan bid by Hung cummings prn for insomnia Family involvement, pt has no family whom he would like to include into his tx Follow up on labs Will monitor closely Pt was educated about risk/benefits and alternatives of medications, coping strategies (safety plan, suicide prevention), relapse prevention, importance of follow up with psychiatrist and therapist, stay away from drugs/alcohol/smoking possible d/c tomorrow Medication Change: No (seroquel increased yesterday) Medical Record Reviewed: Yes Consults ordered or reviewed: medical consult appreciated Mental Status Examination - Cognitive Function Orientation: Person, Place, Situation Attention: WNL - Mood Mood: Depressed, Anxious - Affect Affect: Flat - Speech Speech: Soft - Formal Thought Process Formal Thought Process: Paranoia - Suicidal Ideation Suicidal Ideation: No - Homicidal Ideation Homicidal Ideation: No Goal/Treatment Plan - Goal/Treatment Plan Need for Continued Stay: Severe depression anxiety, Failed transitioning, Severe functional impairment Estimated Date of D/C: 05/05/17
[2017-05-05 07:09] VITALS: BP 119/75; PULSE 81; RESP 17; TEMP 98
--- NOTE | 2017-05-05 14:37 | PCM.PYCHDC ---
Mental Status Examination - Mental Status Examination Orientation: Person, Place, Situation, Time Memory: Intact Mood: Neutral Affect: Constricted Attention: WNL Concentration: WNL Association: Loose Fund of Knowledge: WNL Formal Thought Process: Hallucinations (tactile) Description of patient's judgement and insight: Pt has improved insight into mental and medical illness, pt was compliant with medications and unit rules and regulations, pt was going to groups, was calm, cooperative, socially appropriate, no behavioral incidents, no agitation, no aggression. Psychotic Thoughts and Behaviors: Pt denied v/a hallucinations, tactile hallucinations are chronic denied paranoid ideations, pt does not appear to be psychotic, and thought process is more organized, but at times circumstantial and tangential Suicidal Ideation: No Current Homicidal Ideation?: No Plan: pt adamantly denied thoughts of harming self or others denied intent or plan. Discharge Summary - Discharge Note Reason for Hospitalization: pt was admitted for possible suicidal ideation. Psychiatric History (includes Medical, Family, Personal Hx): multiple psych admissions Laboratory Data: 04/27/17 12:00 04/27/17 12:00 Lab Results 04/29/17 08:30: HIV 1&2 Ag/Ab, 4th Gen Nonreactive 04/29/17 07:30: Hepatitis A IgM Ab Negative, Hep Bs Antigen Negative, Hep B Core IgM Ab Negative, Hepatitis C Antibody Negative 04/28/17 06:00: Free T4 0.72 L, TSH 3rd Generation 0.33 L 04/28/17 06:00: RPR Nonreactive 04/28/17 06:00: Triglycerides 167 H, Cholesterol 117 L, LDL Cholesterol Direct 59, HDL Cholesterol 32 04/27/17 12:00: Alcohol, Quantitative < 10 04/27/17 12:00: Salicylates < 1 L, Acetaminophen < 10.0 L 04/27/17 12:00: Sodium 143, Potassium 4.1, Chloride 106, Carbon Dioxide 28, Anion Gap 13, BUN 8, Creatinine 0.7, Est GFR ( Amer) > 60, Est GFR (Non- Af Amer) > 60, Random Glucose 103, Calcium 9.2, Total Bilirubin 0.3, AST 21, ALT 27, Alkaline Phosphatase 91, Total Protein 6.4, Albumin 4.1, Globulin 2.3, Albumin/Globulin Ratio 1.8 04/27/17 12:00: WBC 4.7 D, RBC 4.48, Hgb 13.7 L, Hct 41.3 L, MCV 92.2 D, MCH 30.6, MCHC 33.2, RDW 13.9, Plt Count 216, MPV 9.1, Gran % 54.4, Lymph % (Auto) 33.7, [place] % (Auto) 8.3 H, Eos % (Auto) 3.2, Baso % (Auto) 0.4, Gran # 2.57, Lymph # 1.6, [place] # 0.4, Eos # 0.2, Baso # 0.02 Vital Signs Temp Pulse Resp BP Pulse Ox 05/05/17 07:07 98.0 F 81 17 119/75 05/04/17 16:00 93 H 115/76 05/04/17 07:00 97.9 F 83 16 114/69 05/03/17 16:22 95 H 118/75 05/03/17 07:42 98.6 F 83 22 125/81 05/02/17 06:55 98.2 F 85 20 108/66 97 05/01/17 16:26 97 H 100/57 L 05/01/17 07:09 69 20 115/79 04/30/17 16:00 82 127/90 04/30/17 06:48 98.1 F 82 20 121/75 99 04/29/17 16:00 78 116/76 04/29/17 08:06 98.3 F 67 18 115/82 04/28/17 22:46 98.1 F 67 18 109/76 98 04/28/17 07:00 98.1 F 67 18 109/76 98 04/27/17 15:12 98.4 F 72 20 113/77 04/27/17 11:37 98.2 F 99 H 16 129/79 99 Consultations:: List each consultation separately and include: 1. Reason for request. 2. Findings. 3. Follow-up Consultations: medical consult appreciated please see notes for more detailed information Summary of Hospital Course include:: 1. Description of specific treatment plan utilized for patients during their course of treatmen. 2. Summarize the time- course for resolution of acute symptoms and/or regressed behaviors. 3. Describe issues identified and worked on during hospitalization. 4. Describe medication utilized. 5. Describe medical problems identified and treated. 6. Reassessment of suicide risk Summary of Hospital Course: Pt is 31yo male long h/o mental illness, schizophrenia spectrum disorder, cannabis abuse/dependence, chronic noncompliance with medications, multiple previous hospitalizations into this facility (most recent was April 17), lives in [facility], pt was brought in by Annita Gonzalez from mobile crisis for evaluation of possible suicidal ideation, as per report mobile crisis was called by [facility] program due to patient verbalizing suicidal ideation with the plan to cut himself, pt has been non compliant with medications, reported being depressed, reported to have difficulties with sleep and appetite, abusing marijuana, reported visual and auditory hallucinations. at the time of initial evaluation pt presented with poor personal hygiene/ ADLS : poor, pt presented to be anxious, rocking back and forth, said that he feels very anxious, said that "I am so anxious, I want to flip the table.." pt said that he was not able to afford medications because of copayment, this designer writer called to the [facility] pharmacy, as per pharmacist report pt was never charged any copayments. when confronted pt was not able to tolerate it, walked out the room angry. Psychosis:disorganized, reported v/a/t hallucinations. Depression:pt said that he was feeling depressed and hopeless, pt denied saying that he wants to end up his life but "I said I wanted to cut myself because of anxiety". Suicidal thoughts/plans/intent: pt denied. Anxiety: presented anxious, denied h/o abuse. Substance abuse: smokes marijuana. smokes two -three cigarettes a day, Smoking: counseling provided, nicotine patch offered, pt does not want to be on nicotine patch. Smoking Cessation Counseling: The patient was counseled as to the multiple risks to his/her health from continued use of tobacco products. It was explained that continuing to smoke may lead to multiple short and chcf negative health consequences, including but not limited to mouth/esophageal /lung cancer, COPD, and heart disease. He/she states he/she understands these risks, and also understands the options and resources available to him/her to help him/her stop smoking. Nicotine replacement therapy, local hotlines, and local resources were discussed as viable options for helping him/her stop his/her tobacco use. The total time spent counseling the patient regarding tobacco cessation was 3 minutes Past psychiatric h/o:schizophrenia as per previous record pt said past psych h/o : "I had multiple suicidal attempts", first was at age of 7-8 "I missed my mom, I tried to hang myself on the tree, I saw how field technical specialist were taking my mother", pt also tried to hang self at age of 13, then at age of 18 pt tried to overdose on drugs, pt has h/o cutting behavior. pt contracted for safety during the interview. family h/o: mother side h/o depression and anxiety, father's side one suicidal attempt one of pt's uncle hanged himself at age of 28. Medical h/o: h/o asthma Social h/o: lives in [facility], does not work Treatment goals: "to feel better" Labs: 04/27/17 12:00 04/27/17 12:00 Lab Results 04/28/17 06:00: Free T4 0.72 L, TSH 3rd Generation 0.33 L 04/28/17 06:00: Triglycerides 167 H, Cholesterol 117 L, LDL Cholesterol Direct 59, HDL Cholesterol 32 04/27/17 12:00: Alcohol, Quantitative < 10 04/27/17 12:00: Salicylates < 1 L, Acetaminophen < 10.0 L 04/27/17 12:00: Sodium 143, Potassium 4.1, Chloride 106, Carbon Dioxide 28, Anion Gap 13, BUN 8, Creatinine 0.7, Est GFR ( Amer) > 60, Est GFR (Non- Af Amer) > 60, Random Glucose 103, Calcium 9.2, Total Bilirubin 0.3, AST 21, ALT 27, Alkaline Phosphatase 91, Total Protein 6.4, Albumin 4.1, Globulin 2.3, Albumin/Globulin Ratio 1.8 04/27/17 12:00: WBC 4.7 D, RBC 4.48, Hgb 13.7 L, Hct 41.3 L, MCV 92.2 D, MCH 30.6, MCHC 33.2, RDW 13.9, Plt Count 216, MPV 9.1, Gran % 54.4, Lymph % (Auto) 33.7, [place] % (Auto) 8.3 H, Eos % (Auto) 3.2, Baso % (Auto) 0.4, Gran # 2.57, Lymph # 1.6, [place] # 0.4, Eos # 0.2, Baso # 0.02 Vital Signs Temp Pulse Resp BP Pulse Ox 04/28/17 07:00 98.1 F 67 18 109/76 98 04/27/17 15:12 98.4 F 72 20 113/77 04/27/17 11:37 98.2 F 99 H 16 129/79 99 pt was stabilized on the following medications: seroquel 100mg po bid for psychosis and mood stabilization paxil 40mg po hs for depression and anxiety sonata for insomnia ativan 0.5amhs for anxiety pt tolerated meds well, no side effects observed or reported, AIMS 0, no EPS. Over the course of this hospitalization pt was attending groups, pt also had medication management, had therapeutic milieu. Overall pt improved significantly, pt's affect became brighter, pt was less depressed, has realistic future oriented plans, pt has chronic hallucinations, tactile, pt was socially appropriate, no behavioral issues, pts insight improved as well and soon pt deemed to be ready for discharge. At the time of the discharge pt denied been depressed, denied thoughts of harming self or others, denied psychotic symptoms, and pt does not appeared to be psychotic, denied been anxious, pt is not in imminent danger to self or others, will be following up at [facility], information about follow up appointment, time and address provided to the pt, it is patient responsibility to follow up with outpatient clinic, PMD as well as specialists (see note for more detailed information). In case pt will need to obtain results of studies pending at discharge pt was provided with contact information of Psychiatric Inpatient unit [phone] as well as Medical Record Department [phone]. Nicotine patch was offered Counseling about smoking marijuana cessation provided AA meetings as well as [facility] smoking cessation treatment program information was provided by the pt was provided with prescriptions for all of medications (please see medication reconciliation form) Pt was educated about safety plan in case of worsening of symptoms or in case of suicidal or homicidal ideation call 911 or go to the nearest ER, also was educated to take meds as prescribed and stay away from drugs, pt verbalized understanding. - Diagnosis (1) Schizophrenia Current Visit: No Status: Chronic Priority: Medium (2) Cannabis abuse with physiological dependence Current Visit: No Status: Chronic Priority: Medium - Final Diagnosis (DSM 5) Condition upon Discharge: FAIR Disposition: HOME/ ROUTINE Follow-up Treatment Plan: At the time of the discharge pt denied been depressed, denied thoughts of harming self or others, denied psychotic symptoms, and pt does not appeared to be psychotic, denied been anxious, pt is not in imminent danger to self or others, will be following up at [facility], information about follow up appointment, time and address provided to the pt, it is patient responsibility to follow up with outpatient clinic, PMD as well as specialists (see note for more detailed information). In case pt will need to obtain results of studies pending at discharge pt was provided with contact information of Psychiatric Inpatient unit [phone] as well as Medical Record Department [phone]. Nicotine patch was offered Counseling about smoking marijuana cessation provided AA meetings as well as [facility] smoking cessation treatment program information was provided by the pt was provided with prescriptions for all of medications (please see medication reconciliation form) Pt was educated about safety plan in case of worsening of symptoms or in case of suicidal or homicidal ideation call 911 or go to the nearest ER, also was educated to take meds as prescribed and stay away from drugs, pt verbalized understanding. Prescriptions/Medication Reconciliation: RX: LORazepam [Ativan] 0.5 mg PO AMHS PRN #14 tab PRN Reason: Anxiety Paroxetine HCl [Paxil] 40 mg PO HS #14 tablet Quetiapine Fumarate [Seroquel] 100 mg PO AMHS #30 tab RX: Zaleplon [Sonata] 5 mg PO HS PRN #14 cap PRN Reason: Insomnia - Smoking Cessation Smoking Cessation Medication prescribed: Yes - Antipsychotic Medications Pt discharged on 2 or more routine antipsychotic medications: No
== END 2017-05-05 14:51 | disposition home or self-care (01) | DRG 885 ==
LOC: ED 11:22 → ERH 12:57 → PSYC 13:48
PROVIDERS: ADMIT Psychiatry & Neurology Psychiatry; ATTEND Psychiatry & Neurology Psychiatry
DX: F20.9 Schizophrenia, unspecified (principal); Z91.14 Patient's other noncompliance with medication regimen; F32.9 Major depressive disorder, single episode, unspecified; F41.9 Anxiety disorder, unspecified; F12.20 Cannabis dependence, uncomplicated; J45.909 Unspecified asthma, uncomplicated; E78.5 Hyperlipidemia, unspecified; F17.200 Nicotine dependence, unspecified, uncomplicated

== ENCOUNTER 2017-10-17 15:50 | Emergency (ER) | payer MEDICARE, MEDICAID ==
[2017-10-17 15:50] VITALS: BMI 20.2
[2017-10-17 15:59] VITALS: BP 119/86; PULSE 99; RESP 18; TEMP 98.1; O2SAT 97
--- NOTE | 2017-10-17 16:21 | ED PDOC ---
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 Patient stated while attempting to open a can with hand tool, he accidentally cut finger. Patient has a normal ROM of his thumb. Patient stated last tetanus was 3-4 years ago. Denies other somatic complains. Time/Duration: Other (see hpi) Context: Home Past Medical History - Provider Review Nursing Documentation Reviewed: Yes - Infectious Disease Hx of Infectious Diseases: None - Tetanus Immunization Tetanus Immunization: Up to Date - Past Medical History Past Medical History: No Previous - Cardiac Hx Cardiac Disorders: No - Pulmonary Hx Respiratory Disorders: No - Neurological Hx Neurological Disorder: No - HEENT Hx HEENT Disorder: No - Renal Hx Renal Disorder: No - Endocrine/Metabolic Hx Endocrine Disorders: No - Hematological/Oncological Hx Blood Disorders: No - Integumentary Hx Dermatological Disorder: No - Musculoskeletal/Rheumatological Hx Falls: No - Gastrointestinal Hx Gastrointestinal Disorders: No - Genitourinary/Gynecological Hx Genitourinary Disorders: No - Psychiatric Hx Psychophysiologic Disorder: Yes Hx Anxiety: Yes Hx Depression: Yes Hx Hallucinations: Yes Hx Schizophrenia: Yes Hx Substance Use: Yes (marijuana ) - Past Surgical History Past Surgical History: No Previous - Anesthesia Hx Anesthesia: No - Suicidal Assessment Feels Threatened In Home Enviroment: Yes Family/Social History - Physician Review Nursing Documentation Reviewed: Yes Family/Social History: Other (noncontributory) Smoking Status: Heavy Smoker > 10 Cigarettes Daily Hx Alcohol Use: No Hx Substance Use: Yes (marijuana ) Substance used: marijuana Hx Substance Use Treatment: No Allergies/Home Meds Allergies/Adverse Reactions: Allergies olanzapine [From Zyprexa] Adverse Reaction (Verified 10/17/17 15:59) RASH Home Medications: Home Meds Medication Instructions Recorded Confirmed LORazepam [Ativan] 1 mg PO TID 10/17/17 10/17/17 Quetiapine Fumarate [Seroquel] 300 mg PO DAILY 10/17/17 10/17/17 Review of Systems - Review of Systems Constitutional: Normal. absent: Fatigue, Weight Change, Fevers, Night Sweats Eyes: Normal ENT: Normal Respiratory: Normal Cardiovascular: Normal Gastrointestinal: Normal Genitourinary Male: Normal Musculoskeletal: Other (see hpi) Skin: Normal Neurological: Normal Endocrine: Normal Hemo/Lymphatic: Normal Psychiatric: Normal Physical Exam Vital Signs Temp Pulse Resp BP Pulse Ox 10/17/17 15:52 98.1 F 99 H 18 119/86 97 Temperature: Afebrile Blood Pressure: Normal Pulse: Regular Respiratory Rate: Normal Appearance: Positive for: Well-Appearing, Non-Toxic, Comfortable Pain Distress: None Mental Status: Positive for: Alert and Oriented X 3 - Systems Exam Head: Present: Atraumatic, Normocephalic Mouth: Present: Moist Mucous Membranes Neck: Present: Normal Range of Motion Upper Extremity: Present: Normal ROM, NORMAL PULSES, Neurovascularly Intact, Capillary Refill < 2s, Other ((+) 1.5 cm right thumb laceration, located at mid prox. phalanx, dorsal aspect of skin, superficial). No: Cyanosis, Edema, Tenderness, Swelling, Erythema Lower Extremity: Present: Normal Inspection, Normal ROM Neurological: Present: GCS=15, CN II-XII Intact, Speech Normal, Motor Func Grossly Intact, Normal Sensory Function, Normal Cerebellar Funct, Gait Normal Skin: Present: Warm, Dry, Normal Color. No: Rashes Psychiatric: Present: Alert, Oriented x 3, Normal Insight, Normal Concentration Medical Decision Making ED Course and Treatment: 10/17/17 16:21 Re-evaluation. Patient feels better. Discussed results and plan with patient who expresses understanding. All questions answered and there is agreement with the plan to discharge home with instructions. Patient stable for discharge. Return if symptoms persist or worsen Re-evaluation Time: 16:21 Reassessment Condition: Re-examined, Improved - Procedure PROCEDURE NOTE (Text): 10/17/17 16:24 PROCEDURE: LACERATION REPAIR Performed by the emergency provider Location: right thumb Length: 1.5 cm Description: clean wound edges, no foreign bodies Distal CMS: Normal. No deficits. Neurovascularly intact. Anesthesia: none Preparation: The wound was cleaned with NS and [place]. The area was prepped and draped in the usual sterile fashion. Exploration: The wound was explored and no foreign bodies were found. Procedure: The wound was closed with Dermabond. There was good approximation. Post-Procedure: Good closure and hemostasis. The patient tolerated the procedure well and there were no complications. CSM remains intact. Post procedure dressing applied. Disposition/Present on Arrival - Present on Arrival Any Indicators Present on Arrival: No History of DVT/PE: No History of Uncontrolled Diabetes: No Urinary Catheter: No History of Decub. Ulcer: No History Surgical Site Infection Following: None - Disposition Have Diagnosis and Disposition been Completed?: Yes Diagnosis: Thumb laceration Disposition: HOME/ ROUTINE Disposition Time: 16:22 Patient Plan: Discharge Patient Problems: Current Active Problems Problem Status Onset Thumb laceration Acute Condition: GOOD Additional Instructions: Call private doctor for follow up visit in 1-2 days. Take medication as instructed. Return to emergency if symptoms worsen. Prescriptions: Cephalexin [cephalexin] 500 mg PO QID #20 cap Ibuprofen [Motrin] 400 mg PO Q8H PRN #20 tab PRN Reason: Pain, Severe (8-10) Referrals: PCP,NO [Primary Care Provider] - Follow up with primary [facility] [Outside] - Follow up with primary [facility] [Outside] - Follow up with primary
== END 2017-10-17 16:43 | disposition home or self-care (01) ==
LOC: ED 15:50
DX: S61.011A Laceration without foreign body of right thumb without damage to nail, initial encounter (principal); W27.8XXA Contact with other nonpowered hand tool, initial encounter; Y92.89 Other specified places as the place of occurrence of the external cause

== ENCOUNTER 2017-11-24 13:04 | Inpatient (IN) | payer MEDICARE, MEDICAID ==
[2017-11-24 13:05] VITALS: BMI 20.2
--- NOTE | 2017-11-24 14:02 | ED PDOC ---
Arrival/HPI - General Chief Complaint: Psychiatric Evaluation Time Seen by Provider: 11/24/17 13:34 Historian: Patient - History of Present Illness Narrative History of Present Illness (Text): 11/24/17 14:02 A 32 year old male, whose past medical history includes anxiety and schizophrenia, presents to the emergency department complaining of anxiety for 3 weeks. Patient reports symptom began since having stopped taking medications 3 weeks ago. Patient notes also experiencing hallucinations (sensation of something coming out of camera in patient's room), sleep changes, appetite changes, and delayed speech. Patient notes no other complaints at this time. Also, patient mentions smoking marijuana to "calm nerves" and denies any EtOH abuse. Patient mentions have psychiatrist in the past at [facility], but no longer has one. PMD: Dr. Sabrina Mederos Past Medical History - Provider Review Nursing Documentation Reviewed: Yes - Infectious Disease Hx of Infectious Diseases: None - Tetanus Immunization Tetanus Immunization: Up to Date - Past Medical History Past Medical History: No Previous - Cardiac Hx Cardiac Disorders: No - Pulmonary Hx Respiratory Disorders: No - Neurological Hx Neurological Disorder: No - HEENT Hx HEENT Disorder: No - Renal Hx Renal Disorder: No - Endocrine/Metabolic Hx Endocrine Disorders: No - Hematological/Oncological Hx Blood Disorders: No - Integumentary Hx Dermatological Disorder: No - Musculoskeletal/Rheumatological Hx Falls: No - Gastrointestinal Hx Gastrointestinal Disorders: No - Genitourinary/Gynecological Hx Genitourinary Disorders: No - Psychiatric Hx Psychophysiologic Disorder: Yes Hx Anxiety: Yes Hx Depression: Yes Hx Hallucinations: Yes Hx Schizophrenia: Yes Hx Substance Use: Yes (marijuana ) - Past Surgical History Past Surgical History: No Previous - Anesthesia Hx Anesthesia: No - Suicidal Assessment Feels Threatened In Home Enviroment: Yes Family/Social History - Physician Review Nursing Documentation Reviewed: Yes Family/Social History: No Known Family HX Smoking Status: Heavy Smoker > 10 Cigarettes Daily Hx Alcohol Use: No Hx Substance Use: Yes (marijuana ) Substance used: marijuana Hx Substance Use Treatment: No Allergies/Home Meds Allergies/Adverse Reactions: Allergies olanzapine [From Zyprexa] Adverse Reaction (Verified 11/24/17 13:14) RASH Home Medications: Home Meds Medication Instructions Recorded Confirmed LORazepam [Ativan] 1 mg PO TID 10/17/17 11/24/17 Quetiapine Fumarate [Seroquel] 300 mg PO DAILY 10/17/17 11/24/17 Zolpidem [Ambien] 5 mg PO HS 11/24/17 11/24/17 Review of Systems - Physician Review All systems were reviewed & negative as marked: Yes - Review of Systems Constitutional: Other (sleep changes) Gastrointestinal: Appetite Changes Neurological: Speech Changes (delayed speech) Psychiatric: Anxiety, Other (hallucinations ("feels something is coming out of the camera in patient's room)) Physical Exam Vital Signs Reviewed: Yes Vital Signs Temp Pulse Resp BP Pulse Ox 11/24/17 13:09 98.5 F 102 H 20 128/87 98 11/24/17 13:06 98.5 F 102 H 20 128/87 98 Temperature: Afebrile Blood Pressure: Normal Pulse: Regular Respiratory Rate: Normal Appearance: Positive for: Well-Appearing Pain Distress: None - Systems Exam Head: Present: Atraumatic, Normocephalic Pupils: Present: PERRL Extroacular Muscles: Present: EOMI Conjunctiva: Present: Normal Mouth: Present: Moist Mucous Membranes Neck: Present: Normal Range of Motion Respiratory/Chest: Present: Clear to Auscultation, Good Air Exchange. No: Respiratory Distress, Accessory Muscle Use Cardiovascular: Present: Regular Rate and Rhythm, Normal S1, S2. No: Murmurs Abdomen: No: Tenderness, Distention, Peritoneal Signs Back: Present: Normal Inspection Upper Extremity: Present: Normal Inspection. No: Cyanosis, Edema Lower Extremity: Present: Normal Inspection. No: Edema Neurological: Present: GCS=15, CN II-XII Intact, Speech Normal Skin: Present: Warm, Dry, Normal Color. No: Rashes Psychiatric: Present: Anxious Medical Decision Making ED Course and Treatment: 11/24/17 14:03 Impression: 32 year old male with anxiety. Differential Diagnosis included but are not limited to: Anxiety, Schizophrenia Plan: -- EKG -- Labs -- Urinalysis -- AES Crisis Evaluation Stat -- Reassess and disposition Progress Notes: EKG: Ordered, reviewed, and independently interpreted the EKG. Rate : 73 BPM Rhythm : NSR Interpretation : No ST-segment elevations or depressions, no T-wave inversions, normal intervals. Comparison : No previous EKG for comparison. 11/24/17 16:[address] Greer Shelby by Roberta PES and will admit to Psych for Schizophrenia. - Lab Interpretations Lab Results: 11/24/17 13:50 11/24/17 13:50 Lab Results 11/24/17 15:05: Urine Color Yellow, Urine Appearance Clear, Urine pH 6.0, Ur Specific [place] 1.025, Urine Protein Trace H, Urine Glucose (UA) Negative, Urine Ketones Trace H, Urine Blood Negative, Urine Nitrate Negative, Urine Bilirubin Negative, Urine Urobilinogen 0.2, Ur Leukocyte Esterase Negative, Urine RBC 0 - 2, Urine WBC 0 - 2, Ur Epithelial Cells None, Urine Bacteria Few 11/24/17 13:50: Alcohol, Quantitative < 10 11/24/17 13:50: Salicylates < 1 L, Acetaminophen < 10.0 L 11/24/17 13:50: Sodium 141, Potassium 3.5 L, Chloride 101, Carbon Dioxide 28, Anion Gap 16, BUN 10, Creatinine 0.9, Est GFR ( Amer) > 60, Est GFR (Non- Af Amer) > 60, Random Glucose 97, Calcium 9.6, Total Bilirubin 0.7, AST 26, ALT 31, Alkaline Phosphatase 84, Total Protein 8.2, Albumin 5.0 H, Globulin 3.1, Albumin/Globulin Ratio 1.6 11/24/17 13:50: WBC 6.0 D, RBC 5.04, Hgb 15.1, Hct 44.1, MCV 87.5 D, MCH 30.0 , MCHC 34.2, RDW 12.4, Plt Count 222, MPV 9.4, Gran % 58.7, Lymph % (Auto) 28.7 , [place] % (Auto) 11.6 H, Eos % (Auto) 0.8 L, Baso % (Auto) 0.2, Gran # 3.50, Lymph # (Auto) 1.7, [place] # (Auto) 0.7 H, Eos # (Auto) 0.1, Baso # (Auto) 0.01 - RAD Interpretation Radiology Orders: 11/24/17 15:58 CXR [CHEST PORTABLE] [RAD] Stat - Medication Orders Current Medication Orders: Discontinued Medications Potassium Chloride (K-Dur 20 Meq Er Tab) 40 meq PO STAT STA Stop: 11/24/17 14:41 - Scribe Statement The provider has reviewed the documentation as recorded by the Diana Hollingsworth Provider Scribe Attestation: All medical record entries made by the Scribe were at my direction and personally dictated by me. I have reviewed the chart and agree that the record accurately reflects my personal performance of the history, physical exam, medical decision making, and the department course for this patient. I have also personally directed, reviewed, and agree with the discharge instructions and disposition. Disposition/Present on Arrival - Present on Arrival Any Indicators Present on Arrival: No History of DVT/PE: No History of Uncontrolled Diabetes: No Urinary Catheter: No History of Decub. Ulcer: No History Surgical Site Infection Following: None - Disposition Have Diagnosis and Disposition been Completed?: Yes Diagnosis: Schizophrenia Disposition: HOSPITALIZED Disposition Time: 16:01 Patient Plan: Admission Condition: FAIR Referrals: Garland Rivas MD [Primary Care Provider] - Follow up with primary Forms: [employer] (Finnish)
[2017-11-24 14:24] LABS: BASO # 0.01 K/mm3 (0.0-2.0); BASO % 0.2 % (0.0-3.0); EOS # 0.1 (0.0-0.7); EOS % 0.8 % (1.5-5.0); GRAN # 3.5 (1.4-6.5); GRAN % 58.7 % (50.0-68.0); HEMOGLOBIN 15.1 g/dL (14.0-18.0); LYMPH # 1.7 (1.2-3.4); LYMPH % 28.7 % (22.0-35.0); MEAN CELL VOLUME 87.5 fl (80.0-105.0); MEAN CORPUSCULAR HGB CONC 34.2 g/dl (31.0-37.0); MEAN PLATELET VOLUME 9.4 fl (7.0-11.0); MONO # 0.7 (0.1-0.6); MONO % 11.6 % (1.0-6.0); RBC 5.04 10^6/uL (3.5-6.1); RED CELL DISTRIBUTION WIDTH 12.4 % (11.5-14.5)
[2017-11-24 14:38] LABS: ALB/GLOB RATIO 1.6 (1.1-1.8); ALT/SGPT 31 U/L (7-56); AST/SGOT 26 U/L (17-59); BLOOD UREA NITROGEN 10 mg/dL (7-21); CALCIUM 9.6 mg/dL (8.4-10.5); GFR AFRICAN-AMERICAN > 60; GFR NON-AFRICAN AMERICAN > 60
[2017-11-24 14:39] LABS: ACETAMINOPHEN < 10.0 ug/ml (10.0-20.0); SALICYLATE < 1 mg/dL (2.0-20.0)
[2017-11-24] MEDS ORDERED: Potassium Chloride 20 mEq ER Tab PO STA (14:40)
[2017-11-24 15:15] LABS: URINE BILIRUBIN NEGATIVE (NEGATIVE); URINE BLOOD NEGATIVE (NEGATIVE); URINE GLUCOSE (UA) NEGATIVE (NEGATIVE); URINE LEUKOCYTE ESTERASE NEGATIVE Leu/uL (NEGATIVE); URINE PROTEIN TRACE mg/dL (<30 mg/dL); URINE UROBILINOGEN 0.2 E.U./dL (<1 E.U./dL)
[2017-11-24 15:22] LABS: URINE APPEARANCE CLEAR (CLEAR); URINE COLOR YELLOW (YELLOW)
[2017-11-24 15:24] LABS: URINE RBC 0 - 2 /hpf (0-2); URINE WBC 0 - 2 /hpf (0-6)
[2017-11-24 15:25] LABS: URINE BACTERIA FEW (NEG)
[2017-11-24 16:13] LABS: BARBITURATES, UR NEGATIVE (NEGATIVE); BENZODIAZEPINES, UR NEGATIVE (NEGATIVE); OPIATES, UR NEGATIVE (NEGATIVE); PHENCYCLIDINE, UR NEGATIVE (NEGATIVE)
[2017-11-24 16:20] VITALS: O2SAT 99
--- NOTE | 2017-11-24 16:29 | RAD ---
HISTORY: psych COMPARISON: Comparison chest dated 04/27/2017. FINDINGS: LUNGS: No active pulmonary disease. PLEURA: No significant pleural effusion identified, no pneumothorax apparent. CARDIOVASCULAR: Normal. OSSEOUS STRUCTURES: No significant abnormalities. VISUALIZED UPPER ABDOMEN: Normal. OTHER FINDINGS: None. IMPRESSION: No active disease.
--- NOTE | 2017-11-24 17:57 | PCM.BM ---
<Alcira Mcqueen - Last Filed: 11/24/17 17:54> Treatment Plan Problems - Problems identified on initial assessmt MEDICATION NON ADHERENCE Date Initiated: 11/24/17 Time Initiated: 18:00 Assessment reference: NA Status: Active Priority: 1 INEFFECTIVE COPING SKILLS Date Initiated: 11/24/17 Time Initiated: 18:00 Assessment reference: NA Status: Active Priority: 2 TACTILE HALLUCINATION Date Initiated: 11/24/17 Time Initiated: 18:00 Assessment reference: NA Status: Active Priority: 3 SOCIAL ISOLATION Date Initiated: 11/24/17 Time Initiated: 18:00 Assessment reference: NA Status: Active Priority: 4 Treatment assets and liabiliti Patient Assests: cooperative, resourceful, self-reliant, ADL independent, physically healthy, negotiates basic needs, cognitively intact Patient Liabilities: live alone, financial problems, poor support system, substance abuse - Milieu Protocol Maintain good personal hygiene: daily Encourage regular showers, daily Remind patient to perform daily oral care, daily Assist patient to perform ADL's Maintain personal safety: every other day Educate patient to report safety concerns to staff, every other day Monitor environment for contraband/sharps Medication safety: Monitor for expected outcome, potential side effects: every other day, Assess barriers to learning: every other day, Assess readiness for medication education: every other day Discharge/Continuing Care - Education Needs Education Needs: Patient Medication, Patient Diagnosis/Disease Process, Patient Coping Skills, Patient Community resources, Patient Activities of Daily Living, Patient Nutrition, Patient Health Practices/Safety, Patient Personal Hygiene/ Grooming, Patient Aftercare Safety Plan - Discharge Discharge Criteria: Tolerates medication w/o severe side effects, Free of Suicidal thoughts, Free of paranoid thoughts, Free of agitation, Normal sleep pattern, Ability to care for self, Reduction of target symptoms Discharge to:: Home <Greer Shelby - Last Filed: 11/25/17 13:27> - Diagnosis (1) Schizo-affective schizophrenia Status: Acute Interventions: 11/25/17 13:28 Psychoeducation supportive therapy Psychopharmacology/adjustment of medications as needed/ monitoring possible side effects Evaluate pt on daily basis Compliance with medications and follow up appointments Long acting medication if pt is noncompliant with pill form Suicide and homicide risk assessment and prevention, coping strategies, safety plan Relapse prevention Reduction of symptoms Improve functional status Possible assertive community treatment Cognitive behavioral therapy Family involvement Possible social skill training as outpatient (2) Cannabis abuse with physiological dependence Status: Chronic Interventions: 11/25/17 13:28 Maintaining sobriety Relapse prevention Possible rehabilitation Motivational interviewing 12-step programs: AA meetings <Ivelisse Hector - Last Filed: 11/26/17 17:50> Family Contact Family involvement: Famliy/SO not involved
--- NOTE | 2017-11-24 22:09 | CARD ---
APPROVED REPORT EKG Measurement Heart [id number] <Conclusion> Normal sinus rhythm Normal ECG
[2017-11-25 07:35] VITALS: RESP 20
--- NOTE | 2017-11-25 13:27 | PCM.PSYCH ---
Initial Psychiatric Evaluation - Initial Psychiatric Evaluation Type of Admission: Voluntary Legal Status: Capacity (patient has capacity to sign consent for treatment) Chief Complaint (in patient's own words): "I was not taking any medications, I was smoking marijuana, I felt like cameras are everywhere, I came to this hospital, I want to be weaned off from all of the medications" patient's thought process does not make any sense, patient was not taking the medication and want to be weaned off from the medications. Patient's Reaction to Hospitalization: patient was admitted to the psychiatric inpatient unit for evaluation and stabilization of disorganized thoughts and behavior, paranoia. History of Present Illness and Precipitating Events: Pt is 32yo male long h/o mental illness, schizophrenia spectrum disorder, cannabis abuse/dependence, chronic noncompliance with medications, multiple previous hospitalizations into this facility (most recent was a year ago), lives in [facility], pt brought himself to the hospital because of worsening of psychosis, feeling that people after him, feeling that cameras are monitoring him. pt has been non compliant with medications, reported being depressed, reported to have difficulties with sleep and appetite, abusing marijuana, reported visual and auditory hallucinations. Due to the severity of patients symptoms, psychosis, pt could not be maintained as outpatient setting, needs further evaluation and stabilization in acute psychiatric unit. Personal hygiene/ ADLS: poor, pt presented to be anxious, angry, paranoid towards this show card writer, rocking back and forth, said that he feels very anxious, "you are the one causing the way I feel", pt was paranoid towards this show card writer, said that "you are prescribing your stupid medications", pt said he was not on any meds so far and "I want to be off medications". Psychosis:disorganized, reported v/a/t hallucinations. Depression:pt said that he was feeling depressed and hopeless, pt denied saying that he wants to end up his life Anxiety: presented anxious, denied h/o abuse. Substance abuse: smokes marijuana. smokes two -three cigarettes a day, Smoking: counseling provided, nicotine patch offered, pt does not want to be on nicotine patch. Smoking Cessation Counseling: The patient was counseled as to the multiple risks to his/her health from continued use of tobacco products. It was explained that continuing to smoke may lead to multiple short and snf negative health consequences, including but not limited to mouth/esophageal /lung cancer, COPD, and heart disease. He/she states he/she understands these risks, and also understands the options and resources available to him/her to help him/her stop smoking. Nicotine replacement therapy, local hotlines, and local resources were discussed as viable options for helping him/her stop his/her tobacco use. The total time spent counseling the patient regarding tobacco cessation was 3 minutes Past psychiatric h/o:schizophrenia as per previous record pt said past psych h/o : "I had multiple suicidal attempts", first was at age of 7-8 "I missed my mom, I tried to hang myself on the tree, I saw how credit or loans officer were taking my mother", pt also tried to hang self at age of 13, then at age of 18 pt tried to overdose on drugs, pt has h/o cutting behavior. pt contracted for safety during the interview. family h/o: mother side h/o depression and anxiety, father's side one suicidal attempt one of pt's uncle hanged himself at age of 28. Medical h/o: h/o asthma Social h/o: lives in [facility], does not work Treatment goals: "be weaned off from the medications" 11/24/17 13:50 11/24/17 13:50 Lab Results 11/24/17 15:05: Urine Opiates Screen Negative, Urine Methadone Screen Negative, Ur Barbiturates Screen Negative, Ur Phencyclidine Scrn Negative, Ur Amphetamines Screen Negative, U Benzodiazepines Scrn Negative, U Oth Cocaine Metabols Negative, U Cannabinoids Screen Positive H 11/24/17 15:05: Urine Color Yellow, Urine Appearance Clear, Urine pH 6.0, Ur Specific [place] 1.025, Urine Protein Trace H, Urine Glucose (UA) Negative, Urine Ketones Trace H, Urine Blood Negative, Urine Nitrate Negative, Urine Bilirubin Negative, Urine Urobilinogen 0.2, Ur Leukocyte Esterase Negative, Urine RBC 0 - 2, Urine WBC 0 - 2, Ur Epithelial Cells None, Urine Bacteria Few 11/24/17 13:50: Alcohol, Quantitative < 10 11/24/17 13:50: Salicylates < 1 L, Acetaminophen < 10.0 L 11/24/17 13:50: Sodium 141, Potassium 3.5 L, Chloride 101, Carbon Dioxide 28, Anion Gap 16, BUN 10, Creatinine 0.9, Est GFR ( Amer) > 60, Est GFR (Non- Af Amer) > 60, Random Glucose 97, Calcium 9.6, Total Bilirubin 0.7, AST 26, ALT 31, Alkaline Phosphatase 84, Total Protein 8.2, Albumin 5.0 H, Globulin 3.1, Albumin/Globulin Ratio 1.6 11/24/17 13:50: WBC 6.0 D, RBC 5.04, Hgb 15.1, Hct 44.1, MCV 87.5 D, MCH 30.0 , MCHC 34.2, RDW 12.4, Plt Count 222, MPV 9.4, Gran % 58.7, Lymph % (Auto) 28.7 , [place] % (Auto) 11.6 H, Eos % (Auto) 0.8 L, Baso % (Auto) 0.2, Gran # 3.50, Lymph # (Auto) 1.7, [place] # (Auto) 0.7 H, Eos # (Auto) 0.1, Baso # (Auto) 0.01 Vital Signs Temp Pulse Pulse Resp BP Pulse Ox 11/25/17 07:35 97.7 F 70 20 101/63 11/24/17 18:17 61 18 11/24/17 16:13 60 18 114/73 99 11/24/17 13:09 98.5 F 102 H 20 128/87 98 11/24/17 13:06 98.5 F 102 H 20 128/87 98 As per primary care physician Dr. Pedroza, patient was prescribed barbiturates but urine analysis positive only for cannabis Current Medications: Active Medications Generic Name Dose Route Start Last Admin Trade Name Freq PRN Reason Stop Dose Admin Hydroxyzine Pamoate 50 mg 11/24/17 17:41 Vistaril PO QID PRN Anxiety Protocol Mirtazapine 15 mg 11/24/17 22:00 11/24/17 22:22 Remeron PO 15 mg HS LACEY Administration Quetiapine Fumarate 50 mg 11/24/17 22:00 11/25/17 09:24 Seroquel PO 50 mg AMHS LACEY Administration Protocol Ziprasidone 20 mg 11/24/17 18:12 Geodon Cap PO QID PRN Agitation Protocol Ziprasidone 20 mg 11/24/17 18:14 Geodon Inj IM QID PRN Agitation Protocol Past Psychiatric History - Past Psychiatric History Previous Treatment History: Inpatient Prior Professional Help: see HPI Prior Psychiatric Treatment: see HPI At what hospital: see HPI Duration: see HPI Nature of Treatment: see HPI Explanation of prior treatment: see HPI History of Abuse: see HPI History of ETOH/Drug Use: see HPI History of Family Illness: see HPI Pertinent Medical Hx (Current Medical&Sleep Prob, Allergies): Allergies Allergy/AdvReac Type Severity Reaction Status Date / Time olanzapine [From Zyprexa] AdvReac RASH Verified 11/24/17 19:03 LORazepam [Ativan] 1 mg PO TID 10/17/17 Quetiapine Fumarate [Seroquel] 300 mg PO DAILY 10/17/17 Zolpidem [Ambien] 5 mg PO HS 11/24/17 Review of Systems - Review of Systems Systems not reviewed;Unavailable: Acuity of Condition - EENT Eyes: As Per HPI Ears: As Per HPI Nose/Mouth/Throat: As Per HPI - Cardiovascular Cardiovascular: As Per HPI - Respiratory Respiratory: As Per HPI - Gastrointestinal Gastrointestinal: As Per HPI - Genitourinary Genitourinary: As Per HPI - Reproductive: Male Reproductive:Male: As Per HPI - Musculoskeletal Musculoskeletal: As Par HPI - Integumentary Integumentary: As Per HPI - Neurological Neurological: As Per HPI - Psychiatric Psychiatric: As Per HPI - Endocrine Endocrine: As Per HPI - Hematologic/Lymphatic Hematologic: As Per HPI Mental Status Examination - Personal Presentation Personal Presentation: Looks older than stated age - Affect Affect: Constricted, Flat - Motor Activity Motor Activity: Psychomotor Retardation - Reliability in Providing Information Reliability in Providing Information: Poor, due to alteration in thoughts, Poor , due to cognitve impairment - Speech Speech: Disorganized - Formal Thought Process Formal Thought Process: Hallucinations, Delusions, Paranoia, Loosening of associations - Hallucinations/Delusions Delusions: Persecution - Obsessions/Compulsions Obsessions: None Compulsions: None - Cognitive Functions Orientation: Person Sensorium: Alert Attention/Concentration: Easily distracted Abstract Thinking: [place] Estimate of Intelligence: Below average Judgement: Intact, as evidence by: Insight regarding need for hospitalization - Risk Risk: Self-mutilation, Diminished functioning - Strength & Assets Inventory Strength & Assets Inventory: Cooperative - Limitations Limitations: Other (chronic noncompliance with the medication and marijuana abuse) DSM 5 DX - DSM 5 DSM 5 Diagnosis: schizophrenia versus schizoaffective Cannabis abuse - Recommended/Plan of Treatment Treatment Recommendations and Plan of Treatment: Milieu/structure/supportive therapy Medical consult appreciated, see medical team note for more detailed info SW consultation for discharge plan and social issues Med management as needed medication for possible agitation Seroquel 50 mg twice a day for psychosis Vistaril as needed for anxiety Remeron for depressive symptoms Family involvement Follow up on labs Will monitor closely Pt was educated about risk/benefits and alternatives of medications, coping strategies (safety plan, suicide prevention), relapse prevention, importance of follow up with psychiatrist and therapist, stay away from drugs/alcohol/smoking Projected ELOS: 7 days Prognosis: guarded Discharge Plan and Discharge Criteria: Pt will be not depressed or manic, will be more hopeful, will be not psychotic or anxious, will be not having thoughts of harming self or others, will be tolerating medications well, will not have major side effects, will be able to function, will not pose threat to self or others. - Smoking Cessation Smoking Cessation Initiated: No Reason for not providing: patient does not want to be on nicotine patch
--- NOTE | 2017-11-26 17:37 | PCM.PYCHPN ---
Psychiatric Progress Note - Psychiatric Progress Note Patient seen today, length of contact: 30 minutes Patient Chief Complaint: "I see the light, I feel 5 days, I could see that coming from this area, I don' t know is it good energy or bed energy, this is what I am planning to figure out " Problems Identified/Issues Discussed: Suicide/ homicide prevention, past psychiatric h/o, current psychiatric symptoms , medical problems, risk/benefits and alternatives of medications, medications compliance, coping strategies, substance abuse h/o, relapse prevention, importance of follow up with psychiatrist and therapist, discharge plan. Medical Problems: see HPI Diagnostic Results: 11/24/17 13:50 11/24/17 13:50 Lab Results 11/24/17 15:05: Urine Opiates Screen Negative, Urine Methadone Screen Negative, Ur Barbiturates Screen Negative, Ur Phencyclidine Scrn Negative, Ur Amphetamines Screen Negative, U Benzodiazepines Scrn Negative, U Oth Cocaine Metabols Negative, U Cannabinoids Screen Positive H 11/24/17 15:05: Urine Color Yellow, Urine Appearance Clear, Urine pH 6.0, Ur Specific [place] 1.025, Urine Protein Trace H, Urine Glucose (UA) Negative, Urine Ketones Trace H, Urine Blood Negative, Urine Nitrate Negative, Urine Bilirubin Negative, Urine Urobilinogen 0.2, Ur Leukocyte Esterase Negative, Urine RBC 0 - 2, Urine WBC 0 - 2, Ur Epithelial Cells None, Urine Bacteria Few 11/24/17 13:50: Alcohol, Quantitative < 10 11/24/17 13:50: Salicylates < 1 L, Acetaminophen < 10.0 L 11/24/17 13:50: Sodium 141, Potassium 3.5 L, Chloride 101, Carbon Dioxide 28, Anion Gap 16, BUN 10, Creatinine 0.9, Est GFR ( Amer) > 60, Est GFR (Non- Af Amer) > 60, Random Glucose 97, Calcium 9.6, Total Bilirubin 0.7, AST 26, ALT 31, Alkaline Phosphatase 84, Total Protein 8.2, Albumin 5.0 H, Globulin 3.1, Albumin/Globulin Ratio 1.6 11/24/17 13:50: WBC 6.0 D, RBC 5.04, Hgb 15.1, Hct 44.1, MCV 87.5 D, MCH 30.0 , MCHC 34.2, RDW 12.4, Plt Count 222, MPV 9.4, Gran % 58.7, Lymph % (Auto) 28.7 , [place] % (Auto) 11.6 H, Eos % (Auto) 0.8 L, Baso % (Auto) 0.2, Gran # 3.50, Lymph # (Auto) 1.7, [place] # (Auto) 0.7 H, Eos # (Auto) 0.1, Baso # (Auto) 0.01 Vital Signs Temp Pulse Pulse Resp BP Pulse Ox 11/26/17 16:00 70 111/74 11/26/17 06:50 97.9 F 61 20 118/81 11/25/17 16:00 68 106/73 11/25/17 07:35 97.7 F 70 20 101/63 11/24/17 18:17 61 18 11/24/17 16:13 60 18 114/73 99 11/24/17 13:09 98.5 F 102 H 20 128/87 98 11/24/17 13:06 98.5 F 102 H 20 128/87 98 DSM 5 Symptoms Update: Pt is 32yo male long h/o mental illness, schizophrenia spectrum disorder, cannabis abuse/dependence, chronic noncompliance with medications, multiple previous hospitalizations into this facility (most recent was a year ago), lives in [facility], pt brought himself to the hospital because of worsening of psychosis, feeling that people after him, feeling that cameras are monitoring him. pt has been non compliant with medications, reported being depressed, reported to have difficulties with sleep and appetite, abusing marijuana, reported visual and auditory hallucinations. patient was seen at the treatment team meeting, patient presented to have poor personal hygiene, presented to be disorganized, tangential and circumstantial thought process, patient reported that he feels vibes in the unit, also he felt like energy coming from certain areas in the unit and he does not know if it is good or bad energy, patient wants to figure out that later, patient is upset that he is not on any benzodiazepines, was asking and insistent to be put back on the benzodiazepines but patient has chronic cannabis abuse and dependence and patient might not benefit from the benzodiazepines. Patient requested to be discharged, submitted 48 hour notice, [facility] screening process will be initiated. as per staff, patient is disorganized, but socializing with others during the groups. Patient tolerates medications well, no side effects observed or reported. Impression: Rule out schizophrenia, rule out schizoaffective, substance-induced psychosis Medication Change: Yes (Seroquel increased) Medical Record Reviewed: Yes Mental Status Examination - Cognitive Function Orientation: Person Attention: Poor Concentration: Poor Association: Loose Fund of Knowledge: Poor - Affect Affect: Constricted, Flat - Formal Thought Process Formal Thought Process: Hallucinations, Delusions, Paranoia, Loosening of associations - Suicidal Ideation Suicidal Ideation: No - Homicidal Ideation Homicidal Ideation: No Goal/Treatment Plan - Goal/Treatment Plan Need for Continued Stay: Remain at risks for inpatient hospitalization, Severe depression anxiety, Discharge may exacerbated symptoms, Severe functional impairment Progress Toward Problem(s) and Goals/Treatment Plan: Milieu/structure/supportive therapy Medical consult appreciated, see medical team note for more detailed info SW consultation for discharge plan and social issues Med management as needed medication for possible agitation Seroquel 100 mg twice a day for psychosis Vistaril as needed for anxiety Remeron 15milligram at the nighttime for depressive symptoms Family involvement Follow up on labs Will monitor closely Pt was educated about risk/benefits and alternatives of medications, coping strategies (safety plan, suicide prevention), relapse prevention, importance of follow up with psychiatrist and therapist, stay away from drugs/alcohol/smoking [facility] screening process will be initiated Estimated Date of D/C: 11/29/17
--- NOTE | 2017-11-27 09:37 | PCM.PYCHPN ---
Psychiatric Progress Note - Psychiatric Progress Note Patient seen today, length of contact: 25 minutes Patient Chief Complaint: This place is inducing new symptoms Problems Identified/Issues Discussed: I reviewed assessment and recent notes. Patient requested to be discharged, submitted 48 hour notice, [facility] screening process was initiated. Noted to be disorganized, tangential and circumstantial thought process during treatment team meeting. He presents with similar thought process during my interview at bedside this morning. He is paranoid and guarded though denies it. Speaks to me very softly, mostly from under his covers. Tells me that he has tactile hallucinations but will not elaborate. He slept but doesn't feel rested. Reports that symptoms are being "induced" on the unit which is why he wants to be discharged. Tells me he wants to be left alone. He is oddly related and preoccupied. Not actively responding to internal stimuli but this provider wouldn't be surprised if he was experiencing auditory hallucinations. Patient denies any new acute pain or discomfort. Remains unpredictable and unstable for discharge. Diagnostic Results: Rule out schizophrenia, rule out schizoaffective, substance-induced psychosis Medication Change: Yes (Seroquel increased) Medical Record Reviewed: Yes Mental Status Examination - Cognitive Function Orientation: Person Attention: Poor Concentration: Poor Association: Loose Fund of Knowledge: Poor - Affect Affect: Constricted, Flat, Other (Oddly related) - Formal Thought Process Formal Thought Process: Hallucinations (reports tactile hallucinations), Delusions, Paranoia, Loosening of associations - Suicidal Ideation Suicidal Ideation: No - Homicidal Ideation Homicidal Ideation: No Goal/Treatment Plan - Goal/Treatment Plan Need for Continued Stay: Remain at risks for inpatient hospitalization, Severe depression anxiety, Discharge may exacerbated symptoms, Severe functional impairment Progress Toward Problem(s) and Goals/Treatment Plan: * c/w current tx and plan * Increase seroquel to 100 mg AM and 150 mg HS for paranoia and delusions as well as hallucinations * Screening process pending by [facility] * No new labs thus far * Vitals reviewed and noted below: Selected Entries 11/27/17 07:12 Temperature 97.8 F Pulse Rate 61 Respiratory 20 Rate Blood Pressure 108/70 Estimated Date of D/C: 11/29/17
[2017-11-28 07:47] VITALS: BP 109/65; PULSE 84; TEMP 97.4
--- NOTE | 2017-11-28 09:46 | PCM.PYCHDC ---
Mental Status Examination - Mental Status Examination Orientation: Person, Place, Situation Mood: Neutral Affect: Constricted Speech: Appropriate Attention: WNL Concentration: WNL Association: Loose Fund of Knowledge: Poor Formal Thought Process: Delusions Description of patient's judgement and insight: Improved and fair I/J Psychotic Thoughts and Behaviors: Denies AVH, guarded, no delusions elicited on discharge date Suicidal Ideation: No Current Homicidal Ideation?: No Discharge Summary - Discharge Note Reason for Hospitalization: Pt is 32yo male long h/o mental illness, schizophrenia spectrum disorder, cannabis abuse/dependence, chronic noncompliance with medications, multiple previous hospitalizations into this facility (most recent was a year ago), lives in [facility], pt brought himself to the hospital because of worsening of psychosis, feeling that people after him, feeling that cameras are monitoring him. pt has been non compliant with medications, reported being depressed, reported to have difficulties with sleep and appetite, abusing marijuana, reported visual and auditory hallucinations. Psychiatric History (includes Medical, Family, Personal Hx): see HPI Laboratory Data: Laboratory Tests 11/24/17 11/24/17 11/24/17 13:50 13:50 13:50 WBC 6.0 D RBC 5.04 Hgb 15.1 Hct 44.1 MCV 87.5 D MCH 30.0 MCHC 34.2 RDW 12.4 Plt Count 222 MPV 9.4 Gran % 58.7 Lymph % (Auto) 28.7 [place] % (Auto) 11.6 H Eos % (Auto) 0.8 L Baso % (Auto) 0.2 Gran # 3.50 Lymph # (Auto) 1.7 [place] # (Auto) 0.7 H Eos # (Auto) 0.1 Baso # (Auto) 0.01 Sodium 141 Potassium 3.5 L Chloride 101 Carbon Dioxide 28 Anion Gap 16 BUN 10 Creatinine 0.9 Est GFR ( Amer) > 60 Est GFR (Non-Af Amer) > 60 Random Glucose 97 Calcium 9.6 Total Bilirubin 0.7 AST 26 ALT 31 Alkaline Phosphatase 84 Total Protein 8.2 Albumin 5.0 H Globulin 3.1 Albumin/Globulin Ratio 1.6 Urine Color Urine Appearance Urine pH Ur Specific Jolo Urine Protein Urine Glucose (UA) Urine Ketones Urine Blood Urine Nitrate Urine Bilirubin Urine Urobilinogen Ur Leukocyte Esterase Urine RBC Urine WBC Ur Epithelial Cells Urine Bacteria Salicylates < 1 L Urine Opiates Screen Urine Methadone Screen Acetaminophen < 10.0 L Ur Barbiturates Screen Ur Phencyclidine Scrn Ur Amphetamines Screen U Benzodiazepines Scrn U Oth Cocaine Metabols U Cannabinoids Screen Alcohol, Quantitative 11/24/17 11/24/17 11/24/17 13:50 15:05 15:05 WBC RBC Hgb Hct MCV MCH MCHC RDW Plt Count MPV Gran % Lymph % (Auto) [place] % (Auto) Eos % (Auto) Baso % (Auto) Gran # Lymph # (Auto) [place] # (Auto) Eos # (Auto) Baso # (Auto) Sodium Potassium Chloride Carbon Dioxide Anion Gap BUN Creatinine Est GFR ( Amer) Est GFR (Non-Af Amer) Random Glucose Calcium Total Bilirubin AST ALT Alkaline Phosphatase Total Protein Albumin Globulin Albumin/Globulin Ratio Urine Color Yellow Urine Appearance Clear Urine pH 6.0 Ur Specific [place] 1.025 Urine Protein Trace H Urine Glucose (UA) Negative Urine Ketones Trace H Urine Blood Negative Urine Nitrate Negative Urine Bilirubin Negative Urine Urobilinogen 0.2 Ur Leukocyte Esterase Negative Urine RBC 0 - 2 Urine WBC 0 - 2 Ur Epithelial Cells None Urine Bacteria Few Salicylates Urine Opiates Screen Negative Urine Methadone Screen Negative Acetaminophen Ur Barbiturates Screen Negative Ur Phencyclidine Scrn Negative Ur Amphetamines Screen Negative U Benzodiazepines Scrn Negative U Oth Cocaine Metabols Negative U Cannabinoids Screen Positive H Alcohol, Quantitative < 10 Consultations:: List each consultation separately and include: 1. Reason for request. 2. Findings. 3. Follow-up Consultations: NO CONSULTATIONS REQUESTED Summary of Hospital Course include:: 1. Description of specific treatment plan utilized for patients during their course of treatmen. 2. Summarize the time- course for resolution of acute symptoms and/or regressed behaviors. 3. Describe issues identified and worked on during hospitalization. 4. Describe medication utilized. 5. Describe medical problems identified and treated. 6. Reassessment of suicide risk Summary of Hospital Course: PATIENT SEEN BY THIS PROVIDER ON 11/27 AND 11/28/17 PROGRESS NOTE ON 11/27/17 I reviewed assessment and recent notes. Patient requested to be discharged, submitted 48 hour notice, [facility] screening process was initiated. Noted to be disorganized, tangential and circumstantial thought process during treatment team meeting. He presents with similar thought process during my interview at bedside this morning. He is paranoid and guarded though denies it. Speaks to me very softly, mostly from under his covers. Tells me that he has tactile hallucinations but will not elaborate. He slept but doesn't feel rested. Reports that symptoms are being "induced" on the unit which is why he wants to be discharged. Tells me he wants to be left alone. He is oddly related and preoccupied. Not actively responding to internal stimuli but this provider wouldn't be surprised if he was experiencing auditory hallucinations. Patient denies any new acute pain or discomfort. Remains unpredictable and unstable for discharge. PROGRESS/DISCHARGE NOTE ON 11/28/17 I interviewed patient at bedside today, patient must legally be discharged on 48 hour letter because [facility] screeners did not find patient committable. Patient is alert and oriented to month, year and superficially understanding of circumstances of admission. Eye contact is fair. Patient feels improved and slept well because he took Seroquel 150 mg po last night. Patient also took dose of 100 mg Seroquel on morning of discharge. He refused remeron during course of hospitalization. Patient admits to paranoia, feels others are talking about him. Doesn't feel that anyone is planning to harm him. Denies thoughts to harm himself or others. Affect is calm and flat. No PMA noted at all. He is not responding to internal stimuli. Denies acute discomfort or pain. Patient feels comfortable with discharge and continues to insist on being discharged today so that he may return back home. Delusions and paranoia were not elicited on day of discharge. of note: patient admitted to tactile hallucinations on 11/27/17 however on further questioning today, patient was referring to paranoia. - Final Diagnosis (DSM 5) Condition upon Discharge: IMPROVED DSM 5: Rule out schizophrenia, rule out schizoaffective, substance-induced psychosis Disposition: AGAINST MEDICAL ADVICE Follow-up Treatment Plan: PATIENT LEFT AMA ON 48 HOUR LETTER 11/28/17 AFTER HE WAS FOUND NOT COMMITABLE BY [facility] SCREENERS ON 11/27/17 - Smoking Cessation Smoking Cessation Medication prescribed: No
== END 2017-11-28 13:31 | disposition left against medical advice (07) | DRG 885 ==
LOC: ED 13:04 → ERH 16:19 → PSYC 16:39
PROVIDERS: ADMIT Psychiatry & Neurology Psychiatry; ATTEND Psychiatry & Neurology Psychiatry
PROC: GZ3ZZZZ Medication Management (ICD-10-PCS; principal; 2017-11-24)
DX: F25.9 Schizoaffective disorder, unspecified (principal); Z91.14 Patient's other noncompliance with medication regimen; F12.259 Cannabis dependence with psychotic disorder, unspecified; F41.9 Anxiety disorder, unspecified; J45.909 Unspecified asthma, uncomplicated; F17.210 Nicotine dependence, cigarettes, uncomplicated

== ENCOUNTER 2018-01-24 10:02 | Inpatient (IN) | payer MEDICARE, MEDICAID ==
[2018-01-24 10:02] VITALS: BMI 20.2
[2018-01-24 10:39] LABS: BASO # 0.03 K/mm3 (0.0-2.0); BASO % 0.5 % (0.0-3.0); EOS # 0.1 (0.0-0.7); EOS % 1.3 % (1.5-5.0); GRAN # 4.07 (1.4-6.5); GRAN % 65.8 % (50.0-68.0); HEMOGLOBIN 15.6 g/dL (14.0-18.0); LYMPH # 1.3 (1.2-3.4); LYMPH % 20.6 % (22.0-35.0); MEAN CELL VOLUME 86.6 fl (80.0-105.0); MEAN CORPUSCULAR HEMOGLOBIN 29.9 pg (25.0-35.0); MEAN CORPUSCULAR HGB CONC 34.6 g/dl (31.0-37.0); MEAN PLATELET VOLUME 9.6 fl (7.0-11.0); MONO # 0.7 (0.1-0.6); MONO % 11.8 % (1.0-6.0); RBC 5.21 10^6/uL (3.5-6.1); RED CELL DISTRIBUTION WIDTH 12.7 % (11.5-14.5); WHITE BLOOD COUNT 6.2 10^3/ul (4.5-11.0)
[2018-01-24 10:47] LABS: ACETAMINOPHEN < 10.0 ug/ml (10.0-20.0); ALB/GLOB RATIO 1.6 (1.1-1.8); ALBUMIN 5.2 g/dL (3.0-4.8); ALT/SGPT 39 U/L (7-56); AST/SGOT 57 U/L (17-59); BLOOD UREA NITROGEN 14 mg/dL (7-21); CALCIUM 9.8 mg/dL (8.4-10.5); GFR NON-AFRICAN AMERICAN > 60; SALICYLATE < 1 mg/dL (2.0-20.0)
[2018-01-24 11:02] VITALS: O2SAT 98
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
[2018-01-24 12:20] LABS: URINE BILIRUBIN NEGATIVE (NEGATIVE); URINE BLOOD NEGATIVE (NEGATIVE); URINE GLUCOSE (UA) NEGATIVE (NEGATIVE); URINE LEUKOCYTE ESTERASE NEGATIVE Leu/uL (NEGATIVE); URINE PROTEIN NEGATIVE mg/dL (<30 mg/dL); URINE UROBILINOGEN 0.2 E.U./dL (<1 E.U./dL)
[2018-01-24 12:24] LABS: URINE APPEARANCE CLEAR (CLEAR); URINE COLOR YELLOW (YELLOW)
[2018-01-24 12:50] LABS: BARBITURATES, UR NEGATIVE (NEGATIVE); BENZODIAZEPINES, UR NEGATIVE (NEGATIVE); OPIATES, UR NEGATIVE (NEGATIVE); PHENCYCLIDINE, UR NEGATIVE (NEGATIVE)
[2018-01-24] MEDS ORDERED: Alum-Mag Hydrox-Simethicone Susp (30 mL) PO PRN (13:46)
[2018-01-24] MEDS ORDERED: Magnesium Hydroxide Susp 30 ml UD PO PRN (13:46)
--- NOTE | 2018-01-24 16:53 | PCM.BM ---
<Santiago Buitrago - Last Filed: 01/24/18 16:51> Treatment Plan Problems - Problems identified on initial assessmt Hopelessness Date Initiated: 01/24/18 Time Initiated: 16:52 Assessment reference: NA Status: Active Priority: 1 Altered Thought Process Date Initiated: 01/24/18 Time Initiated: 16:52 Assessment reference: NA Status: Active Priority: 2 Delusions Date Initiated: 01/24/18 Time Initiated: 16:52 Assessment reference: NA Status: Active Priority: 3 Ineffective Coping Date Initiated: 01/24/18 Time Initiated: 16:52 Assessment reference: NA Status: Active Priority: 4 Auditory Hallucinations Date Initiated: 01/24/18 Time Initiated: 16:52 Assessment reference: NA Status: Active Priority: 5 Treatment assets and liabiliti Patient Assests: cooperative, resourceful, self-reliant, ADL independent, physically healthy, negotiates basic needs, cognitively intact <Greer Shelby - Last Filed: 02/02/18 09:13> - Diagnosis (1) Cannabis abuse with physiological dependence Status: Chronic Interventions: 01/25/18 14:47 Psychoeducation/psychotherapy Psychopharmacology/adjustment of medications as needed/ monitoring possible side effects Evaluate pt on daily basis Compliance with medications and follow up appointments Long acting medication if pt is noncompliant with pill form Suicide and homicide risk assessment and prevention, coping strategies, safety plan Relapse prevention Reduction of symptoms Improve functional status Possible assertive community treatment Cognitive behavioral therapy Family involvement Possible social skill training as outpatient (2) Schizophrenia Status: Chronic Interventions: 01/25/18 14:47 Maintaining sobriety Relapse prevention Possible rehabilitation Motivational interviewing
--- NOTE | 2018-01-24 17:10 | CARD ---
APPROVED REPORT EKG Measurement Heart [id number] <Conclusion> Normal sinus rhythm Normal ECG
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
[2018-01-25] MEDS: Bacitracin 500 Units/gm Oint Foilpak UD TOP SCH (17:31)
[2018-01-26] MEDS: Bacitracin 500 Units/gm Oint Foilpak UD TOP SCH ×2 (09:09→16:08)
--- NOTE | 2018-01-26 14:40 | PCM.PYCHPN ---
Psychiatric Progress Note - Psychiatric Progress Note Patient seen today, length of contact: 30 minutes Patient Chief Complaint: "people have the same attitude, all these vibes in the air, I had suicidal and homicidal thoughts, I cut myself, no I don't want to take medications, I will stay here for a couple of days, ...." Problems Identified/Issues Discussed: Suicide/ homicide prevention, past psychiatric h/o, current psychiatric symptoms , medical problems, risk/benefits and alternatives of medications, medications compliance, coping strategies, substance abuse h/o, relapse prevention, importance of follow up with psychiatrist and therapist, discharge plan. Medical Problems: patient appears to be healthy Diagnostic Results: 01/24/18 10:25 01/24/18 10:25 Lab Results 01/24/18 12:14: Urine Opiates Screen Negative, Urine Methadone Screen Negative, Ur Barbiturates Screen Negative, Ur Phencyclidine Scrn Negative, Ur Amphetamines Screen Negative, U Benzodiazepines Scrn Negative, U Oth Cocaine Metabols Negative, U Cannabinoids Screen Positive H 01/24/18 12:14: Urine Color Yellow, Urine Appearance Clear, Urine pH 6.0, Ur Specific [place] 1.010, Urine Protein Negative, Urine Glucose (UA) Negative, Urine Ketones Trace H, Urine Blood Negative, Urine Nitrate Negative, Urine Bilirubin Negative, Urine Urobilinogen 0.2, Ur Leukocyte Esterase Negative 01/24/18 10:25: Alcohol, Quantitative < 10 01/24/18 10:25: Salicylates < 1 L, Acetaminophen < 10.0 L 01/24/18 10:25: Sodium 143, Potassium 3.6, Chloride 102, Carbon Dioxide 24, Anion Gap 20, BUN 14, Creatinine 0.8, Est GFR ( Amer) > 60, Est GFR (Non- Af Amer) > 60, Random Glucose 185 H, Calcium 9.8, Magnesium 2.0, Total Bilirubin 1.3, AST 57, ALT 39, Alkaline Phosphatase 85, Total Protein 8.3, Albumin 5.2 H, Globulin 3.1, Albumin/Globulin Ratio 1.6 01/24/18 10:25: WBC 6.2, RBC 5.21, Hgb 15.6, Hct 45.1, MCV 86.6, MCH 29.9, MCHC 34.6, RDW 12.7, Plt Count 240, MPV 9.6, Gran % 65.8, Lymph % (Auto) 20.6 L, [place] % (Auto) 11.8 H, Eos % (Auto) 1.3 L, Baso % (Auto) 0.5, Gran # 4.07, Lymph # (Auto) 1.3, [place] # (Auto) 0.7 H, Eos # (Auto) 0.1, Baso # (Auto) 0.03 Vital Signs Temp Pulse Resp BP Pulse Ox 01/26/18 07:18 97.3 F L 67 20 102/66 01/25/18 15:00 77 111/84 01/25/18 07:10 97.8 F 65 20 100/66 01/24/18 16:00 80 113/78 01/24/18 15:45 16 01/24/18 12:59 86 17 98 01/24/18 11:02 98.4 F 87 18 122/49 L 98 DSM 5 Symptoms Update: Pt is 32yo male long h/o mental illness, schizophrenia spectrum disorder, cannabis abuse/dependence, chronic noncompliance with medications, multiple previous hospitalizations into this facility (most recent 11/28/17, pt left AMA) , lives in [facility], pt brought himself to the hospital because of worsening of psychosis, possible suicidal and homicidal ideation, pt superficially cut his left forearm prior to this visit, pt has been non compliant with medications, reported being depressed, reported to have difficulties with sleep and appetite , abusing marijuana, reported visual and auditory hallucinations. pt required further evaluation and stabilization and meds titration. pt failed outpatient tx , had self mutilation behavior, needs high level of care. Pt well known to this food writer from the multiple psychiatric admissions, pt was seen at the treatment team meeting today. pt presented to be disorganized, paranoid, keep looking at the back, seems to be internally preoccupied. Pt had poor hygiene, not shaved, acceptable ADLs. at the same time patient is overly exaggerating his symptoms, was pointing something to the window, it seems like he is overly acting. Patient reported that he came to the hospital because he has periods of "blackouts and angry feelings that I want to kill others ", patient reported instead of killing others he wanted to cut his forearm, patient reported that he cut his forearm with a knife, patient has multiple superficial cuts on left dorsal aspect of the forearm. Bacitracin ordered. No inflammation, no infection. Patient is refusing to take any medications, patient reported that he does not want to take medication, when was asked why he admitted himself to the hospital patient said "o avoid court, I do want to go to half-way". as per staff no agitation, no aggression, patient eats fine, had no behavioral issues, but appears to be disorganized. Considering the fact that patient is not taking any medications, patient will be not improving, we'll consider to screen him by [facility]. Impression: Schizophrenia as per history Cannabis addiction Medication Change: No (patient refusing to take any medications) Medical Record Reviewed: Yes Consults ordered or reviewed: patient is relatively healthy does not require to have medical consultation, moreover patient was seen by medical team in the emergency room. Mental Status Examination - Cognitive Function Orientation: Person, Place Memory: Impaired Attention: Poor Concentration: Poor Association: Loose Fund of Knowledge: Poor - Mood Mood: Other (irritable) - Affect Affect: Constricted, Flat - Formal Thought Process Formal Thought Process: Hallucinations, Delusions, Paranoia, Loosening of associations, Circumstantial - Suicidal Ideation Suicidal Ideation: No - Homicidal Ideation Homicidal Ideation: Yes Plan: "people in [facility]" Goal/Treatment Plan - Goal/Treatment Plan Need for Continued Stay: Remain at risks for inpatient hospitalization, Severe depression anxiety, Discharge may exacerbated symptoms, Severe functional impairment Progress Toward Problem(s) and Goals/Treatment Plan: Milieu/structure/supportive therapy SW consultation for discharge plan and social issues Med management as needed medication for possible agitation Seroquel 100 mg twice a day for psychosis ativan 1mg po tid as needed for anxiety Ambien 5mg po hs prn for insomnia Family involvement Follow up on labs Will monitor closely Pt was educated about risk/benefits and alternatives of medications, coping strategies (safety plan, suicide prevention), relapse prevention, importance of follow up with psychiatrist and therapist, stay away from drugs/alcohol/smoking considering the fact that patient is not taking any medications, patient will be not improving, we'll consider to call [facility] for screening Estimated Date of D/C: 01/28/18 - Smoking Cessation Smoking Cessation Initiated: Yes
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
[2018-01-27] MEDS: Bacitracin 500 Units/gm Oint Foilpak UD TOP SCH ×2 (09:37→17:44)
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
[2018-01-27] MEDS: Divalproex 500 mg DR(BID formulation) PO SCH (17:44)
[2018-01-28] MEDS ORDERED: DiphenhydrAMINE 50 mg/ml Inj IM ONE (09:06)
[2018-01-28] MEDS: Bacitracin 500 Units/gm Oint Foilpak UD TOP SCH ×2 (09:53→16:52)
[2018-01-28] MEDS: Divalproex 500 mg DR(BID formulation) PO SCH ×3 (09:54→16:53)
--- NOTE | 2018-01-28 10:54 | RAD ---
PROCEDURE: Right Hand Radiographs. HISTORY: trauma COMPARISON: None. FINDINGS: BONES: Normal. No fracture. JOINTS: Normal. No osteoarthritic changes. SOFT TISSUES: Normal. OTHER FINDINGS: None. IMPRESSION: Normal right hand radiographs.
[2018-01-28] MEDS ORDERED: DiphenhydrAMINE 50 mg/ml Inj IM PRN (11:30)
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
[2018-01-29 07:24] VITALS: RESP 20
[2018-01-29] MEDS: Divalproex 500 mg DR(BID formulation) PO SCH ×2 (08:39→17:48)
[2018-01-29] MEDS: Bacitracin 500 Units/gm Oint Foilpak UD TOP SCH ×2 (09:07→17:54)
--- NOTE | 2018-01-29 10:24 | PCM.PYCHPN ---
Psychiatric Progress Note - Psychiatric Progress Note Patient seen today, length of contact: 30 minutes Problems Identified/Issues Discussed: Pt is 32yo male long h/o mental illness, schizophrenia spectrum disorder, cannabis abuse/dependence, chronic noncompliance with medications, multiple previous hospitalizations into this facility (most recent 11/28/17, pt left AMA) , lives in [facility], pt brought himself to the hospital because of worsening of psychosis, self-mutilation, possible suicidal and homicidal ideation. I reviewed recent notes and met with patient in the quiet room. He appears bizarre, unkempt and paranoid. Responses are irritable and illogical. He is rude and profane to staff members, resistant to taking medication and unpredictable. Code Greys have been called due to unprovoked, agitated behaviors and threats. He doesn't appear to be in any discomfort and denies any new pain in this regard. Currently awaiting transfer to [facility] involuntary psychiatric unit. Diagnostic Results: Schizophrenia as per history Cannabis addiction Medication Change: No ( ) Medical Record Reviewed: Yes Mental Status Examination - Cognitive Function Orientation: Person, Place Memory: Impaired Attention: Poor Concentration: Poor Association: Loose Fund of Knowledge: Poor - Mood Mood: Other (irritable) - Affect Affect: Constricted, Flat - Formal Thought Process Formal Thought Process: Hallucinations, Delusions, Paranoia, Loosening of associations, Circumstantial - Suicidal Ideation Suicidal Ideation: Yes - Homicidal Ideation Homicidal Ideation: Yes Goal/Treatment Plan - Goal/Treatment Plan Need for Continued Stay: Remain at risks for inpatient hospitalization, Severe depression anxiety, Discharge may exacerbated symptoms, Severe functional impairment Progress Toward Problem(s) and Goals/Treatment Plan: * c/w current tx and plan * No new weekend labs thus far * Vitals reviewed and noted below: Selected Entries 01/27/18 01/28/18 07:21 07:21 Temperature 97.6 F 97.5 F L Pulse Rate 97 H 100 H Respiratory 18 18 Rate Blood Pressure 135/77 102/63 * Patient awaiting transfer to involuntary unit at [facility] Estimated Date of D/C: 02/04/18
[2018-01-30] MEDS: Divalproex 500 mg DR(BID formulation) PO SCH ×2 (08:49→17:39)
[2018-01-30] MEDS: Bacitracin 500 Units/gm Oint Foilpak UD TOP SCH ×2 (08:49→17:38)
--- NOTE | 2018-01-30 09:57 | PCM.PYCHPN ---
Psychiatric Progress Note - Psychiatric Progress Note Patient seen today, length of contact: 30 minutes Problems Identified/Issues Discussed: I have reviewed admission assessment. Patient is 32 yo male long h/o mental illness, schizophrenia spectrum disorder, cannabis abuse/dependence, chronic noncompliance with medications, multiple previous hospitalizations into this facility (most recent 11/28/17, pt left AMA), lives in [facility], pt brought himself to the hospital because of worsening of psychosis, self-mutilation, possible suicidal and homicidal ideation. I met with patient in his room. He appears bizarre, unkempt and paranoid. Responses are irritable and illogical. Patient is dismissive and generally doesn 't want to engage with this provider. He doesn't appear to be in any discomfort and denies any new pain in this regard. I reviewed recent notes, patient has been actively hallucinating and delusional. Believes patients are conspiring against him and that staff members are making fun of him. He is rude and profane, resistant to taking medication and unpredictable. Code Greys have been called due to unprovoked, agitated behaviors and threats. Currently awaiting transfer to [facility] involuntary psychiatric unit. Diagnostic Results: Schizophrenia as per history Cannabis addiction Medication Change: No ( ) Medical Record Reviewed: Yes Mental Status Examination - Cognitive Function Orientation: Person, Place Memory: Impaired Attention: Poor Concentration: Poor Association: Loose Fund of Knowledge: Poor - Mood Mood: Other (irritable) - Affect Affect: Constricted, Flat - Formal Thought Process Formal Thought Process: Hallucinations, Delusions, Paranoia, Loosening of associations, Circumstantial - Suicidal Ideation Suicidal Ideation: Yes - Homicidal Ideation Homicidal Ideation: Yes Goal/Treatment Plan - Goal/Treatment Plan Need for Continued Stay: Remain at risks for inpatient hospitalization, Severe depression anxiety, Discharge may exacerbated symptoms, Severe functional impairment Progress Toward Problem(s) and Goals/Treatment Plan: * c/w current tx and plan * No new weekend labs * Vitals reviewed and noted below: 01/29/18 01/29/18 07:22 07:26 Temperature 97.8 F 98.3 F Pulse Rate 89 97 H Respiratory 20 20 Rate Blood Pressure 108/58 L 123/86 * Patient awaiting transfer to involuntary unit at [facility] once bed becomes available Estimated Date of D/C: 02/04/18
[2018-01-31] MEDS: Bacitracin 500 Units/gm Oint Foilpak UD TOP SCH ×2 (13:55→17:11)
[2018-01-31] MEDS: Divalproex 500 mg DR(BID formulation) PO SCH ×2 (13:55→17:11)
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
[2018-02-01] MEDS: Divalproex 500 mg DR(BID formulation) PO SCH ×2 (09:53→17:27)
[2018-02-01] MEDS: Bacitracin 500 Units/gm Oint Foilpak UD TOP SCH ×2 (09:54→17:28)
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
[2018-02-02 07:03] VITALS: TEMP 97.2
[2018-02-02] MEDS: Bacitracin 500 Units/gm Oint Foilpak UD TOP SCH (09:41)
[2018-02-02] MEDS: Divalproex 500 mg DR(BID formulation) PO SCH (09:41)
[2018-02-02 10:59] LABS: BASO # 0.02 K/mm3 (0.0-2.0); BASO % 0.4 % (0.0-3.0); EOS # 0.1 (0.0-0.7); EOS % 2.3 % (1.5-5.0); GRAN # 2.92 (1.4-6.5); GRAN % 54.8 % (50.0-68.0); HEMOGLOBIN 13.8 g/dL (14.0-18.0); LYMPH # 1.7 (1.2-3.4); MEAN CELL VOLUME 86.6 fl (80.0-105.0); MEAN CORPUSCULAR HGB CONC 33.5 g/dl (31.0-37.0); MEAN PLATELET VOLUME 9.3 fl (7.0-11.0); MONO # 0.6 (0.1-0.6); MONO % 11.5 % (1.0-6.0); RBC 4.76 10^6/uL (3.5-6.1); RED CELL DISTRIBUTION WIDTH 12.7 % (11.5-14.5); WHITE BLOOD COUNT 5.3 10^3/ul (4.5-11.0)
[2018-02-02 11:10] LABS: ALB/GLOB RATIO 1.4 (1.1-1.8); ALT/SGPT 26 U/L (7-56); AST/SGOT 24 U/L (17-59); BLOOD UREA NITROGEN 14 mg/dL (7-21); CALCIUM 9.1 mg/dL (8.4-10.5); GFR NON-AFRICAN AMERICAN > 60
[2018-02-02 12:36] VITALS: BP 96/63; PULSE 89
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
--- NOTE | 2018-02-02 16:15 | PCM.BM ---
Treatment Plan Problems - Problems identified on initial assessmt Hopelessness Date Initiated: 01/24/18 Time Initiated: 16:52 Assessment reference: NA Status: Active Priority: 1 Altered Thought Process Date Initiated: 01/24/18 Time Initiated: 16:52 Assessment reference: NA Status: Active Priority: 2 Delusions Date Initiated: 01/24/18 Time Initiated: 16:52 Assessment reference: NA Status: Active Priority: 3 Ineffective Coping Date Initiated: 01/24/18 Time Initiated: 16:52 Assessment reference: NA Status: Active Priority: 4 Auditory Hallucinations Date Initiated: 01/24/18 Time Initiated: 16:52 Assessment reference: NA Status: Active Priority: 5 Treatment assets and liabiliti Patient Assests: cooperative, resourceful, self-reliant, ADL independent, physically healthy, negotiates basic needs, cognitively intact - Milieu Protocol Milieu Narrative: pt was transferred to the [facility] today for further evaluation and stabilization. Family Contact Family involvement: No known Family/SO Discharge/Continuing Care - Treatment Team Participation Patient/Family/SO Statement: pt was transferred to the [facility] today for further evaluation and stabilization. Treatment Plan Review - Problem Hopelessness Time Initiated: 16:52 Altered Thought Process Time Initiated: 16:52 Delusions Time Initiated: 16:52 Ineffective Coping Time Initiated: 16:52 Auditory Hallucinations Time Initiated: 16:52
== END 2018-02-02 13:54 | DRG 885 ==
LOC: ED 10:02 → ERH 11:35 → PSYC 13:06
PROVIDERS: ADMIT Psychiatry & Neurology Psychiatry; ATTEND Psychiatry & Neurology Psychiatry
PROC: GZ3ZZZZ Medication Management (ICD-10-PCS; principal; 2018-01-24)
DX: F20.9 Schizophrenia, unspecified (principal); F12.251 Cannabis dependence with psychotic disorder with hallucinations; R45.851 Suicidal ideations; R45.850 Homicidal ideations; G47.00 Insomnia, unspecified; S51.812A Laceration without foreign body of left forearm, initial encounter; W45.8XXA Other foreign body or object entering through skin, initial encounter; J45.909 Unspecified asthma, uncomplicated; F17.210 Nicotine dependence, cigarettes, uncomplicated; Z91.14 Patient's other noncompliance with medication regimen; Z78.1 Physical restraint status; Y92.9 Unspecified place or not applicable